=== PATIENT | female | born 1970 | race Caucasian/White ===

== ENCOUNTER 2023-10-08 09:20 | Outpatient (REF) | payer MEDICAID, SELFPAY ==
[2023-10-08 12:01] LABS: Creatinine Urine 151.93 mg/dL
[2023-10-08 12:53] LABS: Alanine Aminotransferase 61 U/L (0-31); Albumin Level 4.1 g/dL (3.5-5.0); Alkaline Phosphatase 38 U/L (39-117); Anion Gap 14 (12-20); Aspartate Amino Transferase 53 U/L (5-31); Bilirubin Total 0.4 mg/dL (0.0-1.0); Blood Urea Nitrogen 13 mg/dL (9-16); Calcium 10.1 mg/dL (8.4-10.2); Carbon Dioxide 29 mmol/L (22-29); Chloride 102 mmol/L (96-108); Cholesterol 182 mg/dL (<200); Estimated Glomerular Filt Rate > 60; Glucose Random 145 mg/dL (60-115); HDL Cholesterol 34 mg/dL (>40); LDL Cholesterol Calculated 98 mg/dL (<100); Potassium 3.7 mmol/L (3.3-5.1); Sodium 141 mmol/L (135-145); Total Protein 8.2 g/dL (6.5-8.0); Triglycerides 251 mg/dL (<150)
[2023-10-08 13:12] LABS: TSH reflex Free T4 2.07 uIU/mL (0.32-4.0); Vitamin D 25-OH Total 18.1 ng/mL (>30)
[2023-10-08 15:31] LABS: Reflex LDLD? No
[2023-10-09 04:28] LABS: HBS Num1 0.61 mIU/mL (0-7.99); HBc Num1 0.21 S/CO (0.00-0.79); HBsAGNum1 0.33 S/CO (0.00-0.99); Hepatitis A Antibody IgM 0.21 Index (0-0.79); Hepatitis B Core Antibody Nonreactive (Nonreactive); Hepatitis B Surface Antigen Negative (Negative); ~Hepatitis A Antibody IgM Nonreactive (Nonreactive); ~Hepatitis B Surface Antibody NONREACTIVE (Nonreactive)
[2023-10-09 04:32] LABS: ~HepC Num1 0.32 S/CO (0.00-0.79); ~Hepatitis C Antibody Nonreactive (Nonreactive)
== END 2023-10-08 09:21 | disposition home or self-care (01) ==
LOC: HO.HHCL 09:20
PROVIDERS: Visit Provider Internal Medicine
DX: R42 Dizziness and giddiness (principal); E78.5 Hyperlipidemia, unspecified; E11.9 Type 2 diabetes mellitus without complications
CPT/HCPCS: 36415; 80053; 80061; 82043; 82306; 82570; 84443; 86704; 86706; 86709; 86803; 87340

== ENCOUNTER 2024-01-17 08:57 | Outpatient (REF) | payer SELFPAY ==
[2024-01-17 11:58] LABS: Alanine Aminotransferase 27 U/L (0-31); Albumin Level 4.2 g/dL (3.5-5.0); Alkaline Phosphatase 36 U/L (39-117); Aspartate Amino Transferase 24 U/L (5-31); Bilirubin Direct 0.1 mg/dL (0.0-0.5); Bilirubin Total 0.5 mg/dL (0.0-1.0); Cholesterol 123 mg/dL (<200); HDL Cholesterol 31 mg/dL (>40); LDL Cholesterol Calculated 65 mg/dL (<100); Total Protein 8.2 g/dL (6.5-8.0); Triglycerides 138 mg/dL (<150)
[2024-01-17 12:12] LABS: Vitamin B12 339 pg/mL (200-900)
== END 2024-01-17 08:58 | disposition home or self-care (01) ==
LOC: HO.HHCL 08:57
PROVIDERS: Visit Provider Internal Medicine Geriatric Medicine
DX: E11.9 Type 2 diabetes mellitus without complications (principal); E78.5 Hyperlipidemia, unspecified; R74.01 Elevation of levels of liver transaminase levels
CPT/HCPCS: 36415; 80061; 80076; 82607

== ENCOUNTER 2024-03-06 13:38 | Outpatient (REF) | payer MEDICAID, SELFPAY ==
--- NOTE | ~2024-03-06 | US_ITS ---
EXAMINATION: MM DIAGNOSTIC DIGITAL BREAST TOMOSYNTHESIS, BILATERAL US BREAST LIMITED, RIGHT MAMMOGRAPHY: CLINICAL INFORMATION: 53-year-old female complaining of right breast pain/palpable focus approximate 11:00 axis, anterior one third. As per technologist note, history of breast cancer in sister at age 48. COMPARISON: Bilateral Mammography and right breast ultrasound 10/02/2021 from [facility]. TECHNIQUE: Digital breast tomosynthesis is performed in both the craniocaudal and mediolateral oblique views along with computer-aided detection (CAD). Synthesized 2D images are generated from the tomosynthesis. In addition to standard views, full-field 3-D right mediolateral view was obtained, as well as spot compression 3-D right MLO and CC views. FINDINGS: There are scattered areas of fibroglandular density (ACR BI-RADS breast composition Category b). There are no suspicious masses, suspicious grouped calcifications, or areas of architectural distortion in either breast. The parenchymal pattern is stable from prior exams. There is no skin or axillary abnormality. There is no mammographic abnormality in the upper outer quadrant, in the region of interest marked by the technologist with the aid of the patient. ULTRASOUND: CLINICAL INFORMATION: As above. COMPARISON: 10/02/2021. TECHNIQUE: Targeted sonographic evaluation right breast was performed using a high frequency linear transducer. Attention was given to the right breast spanning 10:00 to 2:00, including the area of concern. Selected archived documentation. FINDINGS: RIGHT BREAST: There is a mixture of fatty and fibroglandular tissue. No suspicious mass is seen. There is no pathologic acoustic shadowing. There is no cystic abnormality. There is no ultrasound abnormality in the right breast upper outer quadrant in the region of interest. US/US breast RT limited mamm only IMPRESSION: There are no findings suspicious for malignancy in either breast. There is no mammographic or sonographic correlate to the focus of palpable concern/pain in the upper outer right breast, anterior one third. Recommend clinical management and follow-up. Otherwise, recommend the patient resume routine annual screening mammography. OVERALL ASSESSMENT: Mammography: BI-RADS 1 - Negative Ultrasound: BI-RADS 1 - Negative RECOMMENDATION: 1. Patient should be managed based on the clinical impression. 2. Otherwise, routine annual screening mammography. This patient's information was entered into a reminder system with a target due date for their next mammogram.
== END 2024-03-06 13:39 | disposition home or self-care (01) ==
LOC: HO.MAMMO 13:38
PROVIDERS: PCP Internal Medicine Geriatric Medicine; Visit Provider Internal Medicine Geriatric Medicine
DX: N64.4 Mastodynia (principal); N63.11 Unspecified lump in the right breast, upper outer quadrant
CPT/HCPCS: 76642; 77062; 77066

== ENCOUNTER → 2024-03-06 14:00 | Outpatient (BNV) | payer MEDICAID, SELFPAY | PROVIDERS: PCP Internal Medicine Geriatric Medicine; Visit Provider Radiology Diagnostic Radiology | DX: N64.4 Mastodynia (principal) | CPT/HCPCS: 76642; 77062; 77066 ==

== ENCOUNTER 2024-04-20 18:04 | Emergency (ER) | payer MEDICAID, SELFPAY ==
--- NOTE | ~2024-04-20 | XR_ITS ---
EXAMINATION: XR SHOULDER, RIGHT CLINICAL INFORMATION: Limited range of motion with right shoulder pain COMPARISON: None available. TECHNIQUE: AP external rotation, Grashey, scapular Y, and axillary views of the right shoulder. FINDINGS: Mild loss of right AC joint and glenohumeral joint space without acute fracture or dislocation . The soft tissues are normal. XR/XR shoulder RT min 2V IMPRESSION: Moderate degenerative changes right shoulder joint. No visible acute fracture or dislocation seen. Electronically signed by: Wiliam Oliver MD 04/20/2024 07:40 PM EDT
[2024-04-20 18:10] VITALS: BP 138/70; PULSE 82; RESP 16; TEMP 36.3; O2SAT 99; BMI 34.8
--- NOTE | 2024-04-20 18:11 | ED.UPPEXIN ---
HPI - Extremity Injury (Upper) General Chief Complaint: Extremity Injury, Upper Stated Complaint: right shoulder pain, no inj Time Seen by Provider: 04/20/24 19:36 Source: patient Mode of arrival: ambulatory Limitations: no limitations History of Present Illness ED Provider: Dr. Emili Morillo HPI narrative: Patient comes to the emergency room complaining of 1 day of right suprascapular pain. Patient denies any falls, any new exercise. Patient states she woke up with the pain. Patient denies chest pain or shortness of breath. Denies numbness or tingling in the lower extremity. Patient states that when she shrugs her shoulders, the muscles in her right upper back hurt Related Data Previous Rx's ?Medication ?Instructions ?Recorded cyclobenzaprine 10 mg tablet 10 mg PO TID PRN muscle spasm #7 04/20/24 tabs ketorolac 10 mg tablet 10 mg PO .B.i.d. PRN pain #6 tabs 04/20/24 Allergies Allergy/AdvReac Type Severity Reaction Status Date / Time No Known Allergies Allergy Verified 04/20/24 18:11 Review of Systems Review of Systems: Constitutional : No Weight loss, No Fever, No Chills, No Night Sweats, No Fatigue, No Malaise ENT/Mouth : No Hearing loss, No Ear Pain, No Nasal Congestion, No Sinus Pain, No Hoarseness, No sore throat, No Rhinorrhea, No Swallowing Difficulty Eyes: No Eye Pain, No Swelling, No Redness, No Foreign Body, No Discharge, No Vision Changes Cardiovascular : No Chest Pain, No SOB, No Dyspnea on Exertion, No Orthopnea, No Edema, No Palpitations Respiratory : No Cough, No Sputum, No Wheezing, No Smoke Exposure, No Dyspnea Gastrointestinal : No Nausea, No Vomiting, No Diarrhea, No Constipation, No abdominal Pain, No Hematochezia, No Melena Genitourinary : no irregular bleeding, No Dysuria, No Urinary Frequency, No Hematuria, No Urinary Incontinence, No Urgency, No Flank Pain, No Urinary Flow Changes, No Hesitancy Musculoskeletal : Complaining of right shoulder pain without any trauma,, No Myalgias, No Joint Swelling Skin : No Skin Lesions, No rash Neuro : No Weakness, No Numbness, No Paresthesias, No Loss of Consciousness, No Dizziness, No Headache Psych : No Anxiety/Panic, No Depression, No SI/HI/AH/VH, No Social Issues, Heme/Lymph: No Bruising, No Bleeding,No Lymphadenopathy Endocrine : No Polyuria, No Polydipsia, No Temperature Intolerance [facility] Social History Social History Advance Directives: No Advance Directives Information Provided: No Do you have a plan to hurt others: No Plan Physical Exam Vital Signs: Vital Signs: Last Vital Signs Temp 97.4 F 04/20/24 18:10 Pulse 82 04/20/24 18:10 Resp 16 04/20/24 18:10 BP 138/70 04/20/24 18:10 Pulse Ox 99 04/20/24 18:10 O2 Del Method Room Air 04/20/24 18:10 BMI result Body Mass Index 34.8 Const: Other: Appearance: Alert. Oriented X3. No acute distress. Eyes: Pupils equal, round and reactive to light. ENT: Pharynx normal. Neck: Normal inspection. Neck supple. No lymph nodes noted. No crepitus CVS: Normal heart rate and rhythm. Pulses normal. Normal S1 and S2 Respiratory: No respiratory distress. Breath sounds normal. No Wheezing. No rales Abdomen: Soft and nontender. No rigidity. No distention. Skin: Skin warm and dry. Normal skin color. Normal skin turgor. Extremities: No lower extremity edema. No Lacerations. No Rash. Pain to palpation over the suprascapular muscles on the right side and right sternocleidomastoid muscle. No pain to palpation over the actual shoulder. Neuro: Oriented X 3. No motor deficit. No sensory deficit. Moving all extremities. No slurred speech. CN 2 through 12 grossly intact Psych: calm, cooperative, normal affect Course Course Course Narrative: This is a Rapid Medical Examination (RME) performed by Lesley Fields PA-C in triage. Full HPI, ROS, assessment and treatment plan per primary provider in the Main ED. [id number] female presents the ER for evaluation of right shoulder pain that started yesterday when she woke up. No injuries. Significantly limited range of motion due to pain. No chest pain. Pain extends from the neck, through the shoulder and down to the elbow. No numbness, tingling in the arm or hand. Plan: X-ray of the shoulder Medical Decision Making Medical Decision Making [facility] Narrative: My interpretation of x-ray of the shoulder: No obvious abnormality, normal alignment, no dislocation or fracture -patient was given IM ketorolac and p.o. cyclobenzaprine Independent Interpretation I performed an independent interpretation of an: Plain X-Ray Radiology Impression Discussion of test interpretation with radiology: I have reviewed the radiologist's reading. Radiologist Impression: Mild loss of right AC joint and glenohumeral joint space without acute fracture or dislocation . The soft tissues are normal. XR/XR shoulder RT min 2V IMPRESSION: Moderate degenerative changes right shoulder joint. No visible acute fracture or dislocation seen. Discharge Plan Discharge Clinical Impression: Musculoskeletal pain Patient Disposition: Home, Self-Care Instructions: Musculoskeletal Pain (ED) Additional Instructions: Please follow-up with your primary care physician tomorrow. If you have any worsening or new symptoms, please return to the emergency room or call 911 Prescriptions: New ketorolac 10 mg tablet 10 mg PO .B.i.d. PRN (Reason: pain) Qty: 6 0RF Rx Instructions: maximum total duration of 5 days from all oral, intranasal, or parenteral formulations cyclobenzaprine 10 mg tablet 10 mg PO TID PRN (Reason: muscle spasm) Qty: 7 0RF Print Language: Bulgarian
[2024-04-20] MEDS: Cyclobenzaprine HCl 10 MG TABLET PO (20:00)
[2024-04-20] MEDS: Ketorolac Tromethamine 60 MG/2 ML VIAL IM (20:00)
[2024-04-20 20:02] VITALS: BP 138/70; PULSE 82; RESP 16; TEMP 36.3; O2SAT 99
== END 2024-04-20 20:02 | disposition home or self-care (01) ==
PROVIDERS: Emergency Provider Emergency Medicine; PCP Internal Medicine Geriatric Medicine
DX: M79.18 Myalgia, other site (principal); M25.511 Pain in right shoulder
CPT/HCPCS: 73030; 96372; 99283; 99284; J1885

== ENCOUNTER 2024-05-09 17:57 | Inpatient (IN) | payer MEDICAID, SELFPAY ==
--- NOTE | ~2024-05-09 | CT_ITS ---
EXAMINATION: CT ABDOMEN AND PELVIS WITHOUT CONTRAST CLINICAL INFORMATION: Flank pain. Urinary tract infection. COMPARISON: None available. TECHNIQUE: Multidetector volumetric imaging was performed from the lung bases to the pubic without contrast. Sagittal and coronal reformatted images were obtained on the technologist workstation. This CT examination was performed using dose optimization techniques as appropriate, variously including the following: *Automated exposure control. *Adjustment of mA and/or kV according to patient size (this includes techniques or standardized protocols for targeted exams where dose is matched to indication/reason for exam; i.e. extremities or head). *Use of iterative reconstruction technique. DLP: 707 mGy-cm FINDINGS: LUNG BASES: No abnormalities of the visualized lung bases. No demonstrated abnormalities of the visualized cardiac structures. ABDOMEN/PELVIS: Liver, Biliary Ducts, and Gallbladder: The unenhanced liver is somewhat enlarged (23 cm in craniocaudal dimension) although this appears in the presence of a Emily lobe. Diffuse low parenchymal attenuation (32 Hounsfield units). No demonstrated focal hepatic lesions or biliary ductal dilatation. The gallbladder is physiologically distended without radiopaque gallstones, pericholecystic fluid, or significant gallbladder wall thickening. Pancreas: Few small calcifications within the pancreatic tail. Otherwise, the Pancreas is normal in appearance. Adrenal Glands: The adrenal glands are normal in appearance. Spleen: The spleen is mildly enlarged, measuring 12.7 cm in long axis. No additional demonstrated abnormalities of the spleen. Kidneys and Ureters: The unenhanced kidneys are normal in size. Moderate left-sided hydronephrosis and hydroureter. There is a 0.5 cm stone in the distal left ureter (942 Hounsfield units). No additional nephrolithiasis. No right-sided hydronephrosis, ureterolithiasis, or hydroureter. Moderate left-sided perinephric fat stranding. Urinary Bladder: The urinary bladder is partially distended without focal wall thickening. No bladder calculi are demonstrated. Gastrointestinal System: The stomach is decompressed and therefore not well evaluated on this exam. The small bowel is of normal caliber. The colon is normal in appearance without focal wall thickening or pericolonic inflammatory change. Normal appendix. Genitourinary: No demonstrated soft tissue adnexal masses. Intra-abdominal and Retroperitoneal Spaces: No intra-abdominal free fluid collections or gas. No mesenteric, retroperitoneal, or inguinal lymphadenopathy. VASCULATURE: The abdominal aorta is of normal contour and caliber with moderate calcific atherosclerotic disease. MUSCULOSKELETAL: Prior infraumbilical anterior abdominal wall surgery. Multifocal midline hernia along the incision site including nonobstructed loops of small bowel. Moderate multilevel degenerative changes of the spine. Moderate degenerative arthropathy of the bilateral hips. No lytic or sclerotic osseous lesions demonstrated. No soft tissue masses demonstrated. CT/CT abdomen pelvis wo IV con IMPRESSION: 1. There is a 0.5 cm stone in the distal left ureter. Moderate left-sided hydronephrosis and hydroureter. 2. Mild hepatosplenomegaly. Hepatic steatosis. 3. Prior infraumbilical anterior abdominal wall surgery. Multifocal midline hernia along the incision site including nonobstructed loops of small bowel. Electronically signed by: Brian Moreno DO 05/10/2024 12:57 AM EDT
[2024-05-09 18:46] VITALS: BP 122/59; PULSE 91; RESP 18; TEMP 37; O2SAT 99; BMI 32.6
[2024-05-09 19:17] LABS: MANUAL DIFF FLAG NO
[2024-05-09 19:28] LABS: Basophils Percent Auto 0.3 % (0-2); Eosinophils Absolute Auto 0.1 X10*3/uL (0.0-0.4); Hematocrit 44.1 % (37.0-47.0); Hemoglobin 14.9 g/dl (12.0-16.0); Imm Gran Abs Auto 0.03 X10*3/uL (0.00-0.03); Imm Gran Pct Auto 0.3 % (0.0-0.4); Lymphocytes Absolute Auto 2.5 X10*3/uL (1.2-4.9); Lymphocytes Percent Auto 21.8 % (20-40); Mean Corpuscular HGB Conc 33.8 g/dl (31.0-35.0); Mean Corpuscular Hemoglobin 30.6 pg (27.0-33.0); Mean Corpuscular Volume 90.6 fL (80.0-98.0); Mean Platelet Volume 8.8 fL (9.4-12.3); Monocytes Absolute Auto 0.5 X10*3/uL (0.1-1.2); Monocytes Percent Auto 4.6 % (2-11); Neutrophils Absolute Auto 8.2 x10*3/uL (2.0-8.3); Platelet Count 296 X10*3/uL (160-400); Red Blood Count 4.87 X10*6/uL (4.20-5.50); Red Cell Distribution Width 12.9 % (11.0-16.0); White Blood Count 11.5 X10*3/uL (4.8-10.8)
[2024-05-09 19:31] LABS: Appearance Urine Clear; Color Urine Yellow; Glucose Urine UA >=1000 mg/dL (Negative); Leukocyte Esterase Urine Trace (Negative); Nitrite Urine Negative (Negative); Specific Gravity - Urine 1.025 (1.005-1.025); UMIC TRIGGER UACC YES; Urine Blood Moderate (2+) (Negative); Urine Ketones Trace mg/dL (Negative); Urine Protein Negative (Neg-Trace)
[2024-05-09 19:32] LABS: UPreg QC Valid YES; Urine Pregnancy NEGATIVE (NEGATIVE)
[2024-05-09 19:36] LABS: Bacteria Urine 1+ (None Seen); Hyaline Casts Urine 0-2 /LPF (0-2); UACC Culture Trigger YES
[2024-05-09 19:41] LABS: Alanine Aminotransferase 21 U/L (0-31); Albumin Level 4.4 g/dL (3.5-5.0); Alkaline Phosphatase 35 U/L (39-117); Anion Gap 15 (12-20); Aspartate Amino Transferase 19 U/L (5-31); Bilirubin Total 0.3 mg/dL (0.0-1.0); Blood Urea Nitrogen 16 mg/dL (9-16); Calcium 10.5 mg/dL (8.4-10.2); Carbon Dioxide 27 mmol/L (22-29); Chloride 103 mmol/L (96-108); Creatinine Clr Calc Pharmacy 87.6; Estimated Glomerular Filt Rate > 60; Glucose Random 111 mg/dL (60-115); Potassium 4.1 mmol/L (3.3-5.1); Sodium 141 mmol/L (135-145); Total Protein 8.3 g/dL (6.5-8.0)
--- NOTE | 2024-05-09 20:41 | ED_ITS ---
HPI - General Adult General Chief complaint: Abdominal Pain Stated complaint: flank pain/vomiting Time Seen by Provider: 05/10/24 00:16 Source: patient Mode of arrival: ambulatory Limitations: no limitations History of Present Illness ED Provider: jason RANGEL narrative: Patient with family history of kidney stone but patient never had kidney stone comes with sudden started earlier today with nausea vomiting pain is radiating from left flank to the left abdominal no hematuria no dysuria no fever no chills Related Data Home Medications ?Medication ?Instructions ?Recorded ?Confirmed atorvastatin 20 mg tablet 20 mg PO DAILY 05/10/24 05/10/24 cholecalciferol (vitamin D3) 50 50 mcg PO QAM 05/10/24 05/10/24 mcg (2,000 unit) capsule (Vitamin D3) dapagliflozin propaned 5 2 tab PO DAILY 05/10/24 05/10/24 mg-metformin ER 1,000 mg tablet, ext rel 24hr (Xigduo XR) dulaglutide 0.75 mg/0.5 mL 0.75 mg subcut ORO 05/10/24 05/10/24 subcutaneous pen injector (Trulicity) Previous Rx's ?Medication ?Instructions ?Recorded cyclobenzaprine 10 mg tablet 10 mg PO TID PRN muscle spasm #7 04/20/24 tabs ibuprofen 600 mg tablet 600 mg PO Q6H PRN fever or pain 05/10/24 #30 tabs Allergies Allergy/AdvReac Type Severity Reaction Status Date / Time No Known Allergies Allergy Verified 05/09/24 18:48 Review of Systems 2 Review of Systems: Yes all other systems are reviewed and are negative [facility] Past Medical History Medical History (Updated 05/10/24 @ 09:17 by Eryn Montano PA-C) YESSICA on CPAP Type 2 diabetes mellitus without complications HLD (hyperlipidemia) Surgical History (Updated 05/10/24 @ 08:44 by Eryn Montano PA-C) Previous section Social History Social History (Updated 05/10/24 @ 08:45 by Eryn Montano PA-C) Household Members: Children Household Members Other:: daughter in her 30s Alcohol intake: never Patient Tobacco Use Status: Never used Tobacco Use of substances other than those prescribed or required for medical reasons: No Are you DNR?: No Advance Directives: No Advance Directives Information Provided: No Do you have a plan to hurt others: No Plan Nutrition Risks: No Nutritional Risk Patient : No Physical Exam ED Vital Signs: Vital Signs - 24 hr 05/09/24 18:46 05/09/24 22:01 05/10/24 00:49 Temperature 98.6 F 98.0 F 98.2 F Pulse Rate 91 85 124 H Respiratory Rate 18 16 18 Blood Pressure 122/59 L 131/68 132/63 Pulse Oximetry 99 97 94 Oxygen Delivery Method Room Air Room Air 05/10/24 03:27 05/10/24 05:35 05/10/24 05:44 Temperature 99.4 F 98.6 F Pulse Rate 119 H 108 H 106 H Respiratory Rate 16 16 16 Blood Pressure 100/49 L 83/44 L 90/48 L Pulse Oximetry 94 94 94 Oxygen Delivery Method Room Air Room Air Room Air 05/10/24 06:14 05/10/24 06:29 05/10/24 06:39 Temperature Pulse Rate 107 H 108 H 109 H Respiratory Rate 18 20 18 Blood Pressure 93/53 L 91/60 99/56 L Pulse Oximetry 93 93 93 Oxygen Delivery Method Room Air Room Air Room Air 05/10/24 07:19 05/10/24 08:00 Temperature 98.4 F 98.0 F Pulse Rate 116 H 124 H Respiratory Rate 20 20 Blood Pressure 96/57 L 116/65 Pulse Oximetry 93 93 Oxygen Delivery Method Room Air Room Air BMI result Body Mass Index 32.6 Appearance: Alert. Oriented X3. In moderate distress Eyes: No pallor or icterus ENT: Pharynx normal. Oral Mucosa moist Neck: Normal inspection. Neck supple. CVS: Normal heart rate and rhythm. Pulses normal. Respiratory: No respiratory distress. Equal air entry bilateral, no wheezing/rales/rhonchi Abdomen: Soft and nontender. Bowel sounds are present, no mass palpable, less CVA tenderness + Skin: Skin warm and dry. Normal skin color. Normal skin turgor. Extremities: No lower extremity edema. No calf tenderness Neuro: Oriented X 3. No motor deficit. Course Course Course Narrative: RME: 53-year-old female presents ED for left flank left lower quadrant pain. Patient states states symptoms according for 12 hours. Positive for left flank CVA. Labs CT scan ordered. Medications Administered Generic Name Dose Route Start Last Admin Trade Name Freq PRN Reason Stop Dose Admin Enoxaparin Sodium 40 mg 05/10/24 09:30 05/10/24 09:56 Enoxaparin Sodium 40 Mg/0.4 Ml Syringe SUBCUT 40 mg Q24H CANDY Administration Lactated Ringer's 1,000 mls @ 150 mls/hr 05/10/24 12:00 05/10/24 12:00 Lr IVCONT 150 mls/hr .Q6H40M CANDY Administration Insulin Human Lispro 0 unit 05/10/24 11:30 05/10/24 11:39 Insulin Lispro 100 Unit/Ml 3 Ml Vial SUBCUT 2 unit QIDACHS CANDY Administration Protocol Ketorolac Tromethamine 30 mg 05/10/24 09:21 05/10/24 11:39 Ketorolac Tromethamine 30 Mg/Ml Vial IVPUSH 05/15/24 09:20 30 mg Q6H PRN Administration Pain, Moderate(Pain Scale 4-6) Morphine Sulfate 4 mg 05/10/24 09:21 05/10/24 09:57 Morphine Sulfate 4 Mg/Ml Cartridge IVPUSH 4 mg Q4H PRN Administration Pain, Severe (Pain Scale 7-10) Protocol Vitamin D 50 mcg 05/10/24 09:45 05/10/24 09:56 Cholecalciferol (Vitamin D3) 25 Mcg Tablet PO 50 mcg DAILY CANDY Administration Discontinued Medications Generic Name Dose Route Start Last Admin Trade Name Freq PRN Reason Stop Dose Admin Dexamethasone Sodium Phosphate 10 mg 05/10/24 02:05 05/10/24 02:52 Dexamethasone Sod Phosphate 10 Mg/Ml Vial IVPUSH 05/10/24 02:06 10 mg ONCE ONE Administration Hydromorphone HCl 2 mg 05/10/24 02:04 05/10/24 02:51 Hydromorphone Hcl 2 Mg/Ml Vial IVPUSH 05/10/24 02:05 2 mg ONCE ONE Administration Protocol Sodium Chloride 1,000 mls @ 999 mls/hr 05/10/24 00:17 05/10/24 01:39 Ns IV 05/10/24 01:17 Infused .Q1H1M ONE Infusion Sodium Chloride 1,000 mls @ 999 mls/hr 05/10/24 02:04 05/10/24 03:53 Ns IV 05/10/24 03:04 Infused .Q1H1M ONE Infusion Sodium Chloride 1,000 mls @ 999 mls/hr 05/10/24 05:38 05/10/24 06:48 Ns IVCONT 05/10/24 06:38 Infused .Q1H1M ONE Infusion Sodium Chloride 1,000 mls @ 999 mls/hr 05/10/24 06:36 05/10/24 08:48 Ns IVCONT 05/10/24 07:36 Infused .Q1H1M ONE Infusion Ceftriaxone Sodium 1 gm/ 50 mls @ 100 mls/hr 05/10/24 06:45 05/10/24 08:00 Sodium Chloride IV 05/10/24 07:14 Infused ONCE ONE Infusion Ketorolac Tromethamine 30 mg 05/10/24 00:17 05/10/24 00:31 Ketorolac Tromethamine 30 Mg/Ml Vial IVPUSH 05/10/24 00:18 30 mg ONCE ONE Administration Morphine Sulfate 4 mg 05/10/24 00:17 05/10/24 00:32 Morphine Sulfate 4 Mg/Ml Cartridge IVPUSH 05/10/24 00:18 4 mg ONCE ONE Administration Protocol Ondansetron HCl 4 mg 05/10/24 00:17 05/10/24 00:32 Ondansetron Hcl 4 Mg/2 Ml Vial IVPUSH 05/10/24 00:18 4 mg ONCE ONE Administration Ondansetron HCl 4 mg 05/10/24 02:08 05/10/24 02:51 Ondansetron Hcl 4 Mg/2 Ml Vial IVPUSH 05/10/24 02:09 4 mg ONCE ONE Administration Tamsulosin HCl 0.4 mg 05/10/24 00:57 05/10/24 02:52 Tamsulosin Hcl 0.4 Mg Capsule PO 05/10/24 00:58 0.4 mg ONCE ONE Administration Medical Decision Making Medical Decision Making [facility] Narrative: Patient with left renal colic with 5 mm distal ureteric stone with hydronephrosis feeling much better after pain medication will give more IV fluids repeat pain medication if feels better will discharge patient home advised to follow with urologist I received sign-out from my colleague Dr. Harper Patient earlier today received Dilaudid and morphine. Patient's blood pressure dropped to the low 80s. Patient receiving IV fluids, currently in the high 90s systolic. Patient's low BP as mentioned above due to medication, sepsis is not suspected. Patient received IV fluids and ceftriaxone -despite pain medication, patient continues having severe left-sided flank pain -I discussed the patient with Dr. Mckee, patient being admitted. Urology, Dr. Villalobos has been made aware Differential Diagnosis Differential Diagnoses: The differential diagnosis associated with the presentation includes Admission/Observation Consideration of admission/observation: Escalation of care including admission/observation considered Consult Healthcare Provider Management of the patient was discussed with: Hospitalist and Surgical Technician Lab Data MDM Lab Attestation statement: I reviewed the patient's lab results. 05/09/24 19:12 05/09/24 19:12 Labs: Lab Results 05/09/24 Range/Units 19:12 WBC 11.5 H (4.8-10.8) X10*3/uL RBC 4.87 (4.20-5.50) X10*6/uL Hgb 14.9 (12.0-16.0) g/dl Hct 44.1 (37.0-47.0) % MCV 90.6 (80.0-98.0) fL MCH 30.6 (27.0-33.0) pg MCHC 33.8 (31.0-35.0) g/dl RDW 12.9 (11.0-16.0) % Plt Count 296 (160-400) X10*3/uL MPV 8.8 L (9.4-12.3) fL Immature Gran % (Auto) 0.3 (0.0-0.4) % Neut % (Auto) 72.0 (45-73) % Lymph % (Auto) 21.8 (20-40) % [place] % (Auto) 4.6 (2-11) % Eos % (Auto) 1.0 (0-4) % Baso % (Auto) 0.3 (0-2) % Lymph # (Auto) 2.5 (1.2-4.9) X10*3/uL [place] # (Auto) 0.5 (0.1-1.2) X10*3/uL Eos # (Auto) 0.1 (0.0-0.4) X10*3/uL Baso # (Auto) 0.0 (0.0-0.2) X10*3/uL Abs Immat Gran (auto) 0.03 (0.00-0.03) X10*3/uL Absolute Neuts (auto) 8.2 (2.0-8.3) x10*3/uL Absolute Nucleated RBC 0.000 (0.0-0.012) X10*3/uL Nucleated RBC % (auto) 0.0 (0.0-0.2) /100WBC Sodium 141 (135-145) mmol/L Potassium 4.1 (3.3-5.1) mmol/L Chloride 103 (96-108) mmol/L Carbon Dioxide 27 (22-29) mmol/L Anion Gap 15 (12-20) BUN 16 (9-16) mg/dL Creatinine 0.78 (0.5-1.4) mg/dL Estim Creat Clear Calc 87.6 Estimated GFR > 60 Random Glucose 111 (60-115) mg/dL Estimat Average Glucose 117 mg/dL Hemoglobin A1c % 5.7 (<6.0) % Calcium 10.5 H (8.4-10.2) mg/dL Total Bilirubin 0.3 (0.0-1.0) mg/dL AST 19 (5-31) U/L ALT 21 (0-31) U/L Alkaline Phosphatase 35 L (39-117) U/L Total Protein 8.3 H (6.5-8.0) g/dL Albumin 4.4 (3.5-5.0) g/dL Urine Color Yellow Urine Appearance Clear Urine pH 7.0 (5.0-9.0) Ur Specific [place] 1.025 (1.005-1.025) Urine Protein Negative (Neg-Trace) mg/dL Urine Glucose (UA) >=1000 H (Negative) mg/dL Urine Ketones Trace (Negative) mg/dL Urine Blood Moderate (2+) H (Negative) Urine Nitrite Negative (Negative) Ur Leukocyte Esterase Trace H (Negative) Urine RBC 11-20 H (0-2) /HPF Urine WBC 11-20 H (0-5) /HPF Ur Squamous Epith Cells 3-5 (0-2) /HPF Urine Bacteria 1+ (None Seen) Hyaline Casts 0-2 (0-2) /LPF Urine Test NEGATIVE (NEGATIVE) Independent Interpretation I performed an independent interpretation of an: CT Scan Interpretation: Left distal about 5 mm ureteric stone with hydro ureter Radiology Impression Discussion of test interpretation with radiology: I have reviewed the radiologist's reading. Radiologist Impression: CT/CT abdomen pelvis wo IV con IMPRESSION: 1. There is a 0.5 cm stone in the distal left ureter. Moderate left-sided hydronephrosis and hydroureter. 2. Mild hepatosplenomegaly. Hepatic steatosis. 3. Prior infraumbilical anterior abdominal wall surgery. Multifocal midline hernia along the incision site including nonobstructed loops of small bowel. Electronically signed by: Brian Moreno DO 05/10/2024 12:57 AM EDT Discharge Plan Discharge Clinical Impression: Calculus of distal left ureter, UTI (urinary tract infection) Patient Disposition: Admitted As Inpatient
[2024-05-09 22:01] VITALS: BP 131/68; PULSE 85; RESP 16; TEMP 36.7; O2SAT 97
[2024-05-10] VITALS (21 sets, daily range): BP systolic 83–132; BP diastolic 44–84; PULSE 91–124; RESP 12–20; TEMP 36.3–37.7; O2SAT 93–96; BMI 32.7
--- NOTE | 2024-05-10 | ECG_ITS ---
Test Reason : PROLONGED QT Blood Pressure : / mmHG Vent. Rate : 121 BPM Atrial Rate : 121 BPM P-R Int : 156 ms QRS Dur : 086 ms QT Int : 326 ms P-R-T Axes : 052 -01 031 degrees QTc Int : 462 ms Sinus tachycardia Otherwise normal ECG No previous ECGs available Referred By: Eryn Montano Electronically Signed By:ZACHARY ROBBINS MD
[2024-05-10] MEDS: Ketorolac Tromethamine 30 MG/ML VIAL IVPUSH ×3 (00:31→18:06)
[2024-05-10] MEDS: Morphine Sulfate 4 MG/ML CARTRIDGE IVPUSH ×3 (00:32→23:39)
[2024-05-10] MEDS: ondansetron HCL 4 MG/2 ML VIAL IVPUSH ×2 (00:32→02:51)
[2024-05-10] MEDS: 0.9 % Sodium Chloride 1,000 ML 999 ML IV ×2 (00:38→02:52)
[2024-05-10] MEDS: HYDROmorphone HCl 2 MG/ML VIAL IVPUSH (02:51)
[2024-05-10] MEDS: dexAMETHasone sod phosphate 10 MG/ML VIAL IVPUSH (02:52)
[2024-05-10] MEDS: Tamsulosin HCL 0.4 MG CAPSULE PO (02:52)
--- NOTE | 2024-05-10 03:09 | PC.NURSE ---
PT medicated as per sep. Call reina within reach. plan of care ongoing
[2024-05-10] MEDS: 0.9 % Sodium Chloride 1,000 ML 999 ML IVCONT ×2 (05:47→07:30)
--- NOTE | 2024-05-10 05:48 | MHC.EDTECH ---
Hourly rounds and vitals completed,BP is low 83/44,RN and Ilia DORMAN made aware,patient placed in trendelenburg position per provider ,BP is 90/48 at this time,RN at bedside call reina in reach
--- NOTE | 2024-05-10 06:25 | PC.NURSE ---
Notified PT of pts low bp, elevated white count and tachy HR. Though pt meets sepsis criteria, Dr Morillo declined to initiate protocol as she believes low bp is d/t pain medications. PT currently in trendelenburg
[2024-05-10] MEDS: cefTRIAXone sodium 1 GM in 0.9 % Sodium Chloride 50 ML IV (07:30)
--- NOTE | 2024-05-10 07:37 | PC.NURSE ---
this RN resumed care of pt at 0645. a&ox4. vital signs stable aside from being hypotensive and sinus tachy on the cardiac catheterization technician. pt denies chest pain/palpitations. pt verbalizing 7/10 pain in LLQ radiating to left flank. denies nausea/has had no episodes of vomiting since resuming care from previous RN. blood cultures obtained/sent to lab. IVF/abx administered per provider order. pt pending admission at this time. no sob/wob noted. respirations even/unlabored. plan of care ongoing. call reina placed within reach.
--- NOTE | 2024-05-10 07:45 | PC.NURSE ---
pt speaking w/ dr. singleton at this time.
--- NOTE | 2024-05-10 08:26 | PHA.MEDREC ---
Pharmacy Consult ? Medication Reconciliation Pharmacy has completed the medication reconciliation. Spoke with patient. She confirmed she take Trulicity on Wednesday, and last took her home medications yesterday.
--- NOTE | 2024-05-10 08:45 | PM.IMHP ---
History of Present Illness Date of Service: 05/10/24 Attending physician on admission: [facility] Chief Complaint: L flank pain, ureteral stone 53 yo f with a pmhx of T2DM, HLD, and YESSICA on CPAP, presented to the ED last night with nausea vomiting and left flank/LLQ pain x12 hours. 8/10 constant pain with intermittent sharp pains. chills, no fever. no urinary frequncy, urgency, or dysuria. no diarrhea or constipation. no hx of similar sx. Review of Systems Constitutional: Constitutional: Reports chills, Denies fatigue, Denies fever(s) and Denies headache(s) Eyes: Eyes: Denies change in vision and Denies itchy eyes ENT: Denies headache(s), Denies nasal congestion and Denies nasal discharge Cardiovascular: Cardiovascular: Denies chest pain, Denies rapid heart rate and Denies dyspnea Respiratory: Respiratory: Denies cough and Denies dyspnea Gastrointestinal: Gastrointestinal: Denies hematochezia, Denies constipation, Denies diarrhea, Reports nausea and Reports vomiting Genitourinary: Genitourinary: Denies hematuria, Denies dysuria, Reports flank pain and Denies urinary urgency Musculoskeletal: Musculoskeletal: Denies myalgias and Denies arthralgias Integumentary/Breasts: Skin/Breast: Denies rash Neurologic: Denies headache(s) Endocrine: Endocrine: Denies fatigue Hematologic/Lymphatic: Hematologic/Lymphatic: Denies easy bleeding and Denies easy bruising Allergic/Immunologic: Allergic/Immunologic: Denies itchy eyes [facility] Medical History (Updated 05/10/24 @ 09:17 by Eryn Montano PA-C) YESSICA on CPAP Type 2 diabetes mellitus without complications HLD (hyperlipidemia) Functional capacity: independent ambulation Patient : No Surgical History (Updated 05/10/24 @ 08:44 by Eryn Montano PA-C) Previous section Social History (Updated 05/10/24 @ 08:45 by Eryn Montano PA-C) Household Members: Children Household Members Other:: daughter in her 30s Alcohol intake: never Patient Tobacco Use Status: Never used Tobacco Meds Allergies Allergy/AdvReac Type Severity Reaction Status Date / Time No Known Allergies Allergy Verified 05/09/24 18:48 Home Medications ?Medication ?Instructions ?Recorded ?Confirmed ?Last Taken ?Type atorvastatin 20 mg tablet 20 mg PO DAILY 05/10/24 05/10/24 05/09/24 History cholecalciferol (vitamin D3) 50 50 mcg PO QAM 05/10/24 05/10/24 05/09/24 History mcg (2,000 unit) capsule (Vitamin D3) dapagliflozin propaned 5 2 tab PO DAILY 05/10/24 05/10/24 05/09/24 History mg-metformin ER 1,000 mg tablet, ext rel 24hr (Xigduo XR) dulaglutide 0.75 mg/0.5 mL 0.75 mg subcut ORO 05/10/24 05/10/24 05/07/24 History subcutaneous pen injector (Trulicity) Physical Exam Vital Signs and Narrative: Vital Signs: Last Vital Signs Temp 98.0 F 05/10/24 08:00 Pulse 124 H 05/10/24 08:00 Resp 20 05/10/24 08:00 BP 116/65 05/10/24 08:00 Pulse Ox 93 05/10/24 08:00 O2 Del Method Room Air 05/10/24 08:00 BMI result Body Mass Index 32.6 General: AOx3, no acute distress. 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 Resp: CTA bilaterally CVS: S1, S2, RRR GI: +BS, NT, no distention, L CVAT Skin: Warm, dry Extremities: No edema Psych: Appropriate affect Results Labs 05/09/24 19:12 05/09/24 19:12 Labs: Laboratory Results - last 24 hr 05/09/24 19:12 MCV 90.6 MCH 30.6 MCHC 33.8 RDW 12.9 Plt Count 296 MPV 8.8 L Immature Gran % (Auto) 0.3 Neut % (Auto) 72.0 Lymph % (Auto) 21.8 [place] % (Auto) 4.6 Eos % (Auto) 1.0 Baso % (Auto) 0.3 Lymph # (Auto) 2.5 [place] # (Auto) 0.5 Eos # (Auto) 0.1 Baso # (Auto) 0.0 Abs Immat Gran (auto) 0.03 Absolute Neuts (auto) 8.2 Absolute Nucleated RBC 0.000 Nucleated RBC % (auto) 0.0 Anion Gap 15 Estim Creat Clear Calc 87.6 Estimated GFR > 60 Random Glucose 111 Calcium 10.5 H Total Bilirubin 0.3 AST 19 ALT 21 Alkaline Phosphatase 35 L Total Protein 8.3 H Albumin 4.4 Urine Color Yellow Urine Appearance Clear Urine pH 7.0 Ur Specific [place] 1.025 Urine Protein Negative Urine Glucose (UA) >=1000 H Urine Ketones Trace Urine Blood Moderate (2+) H Urine Nitrite Negative Ur Leukocyte Esterase Trace H Urine RBC 11-20 H Urine WBC 11-20 H Ur Squamous Epith Cells 3-5 Urine Bacteria 1+ Hyaline Casts 0-2 Urine Test NEGATIVE Imaging Radiologist's Impressions: Impressions Abdomen/Pelvis CT 05/09/24 20:43 IMPRESSION: 1. There is a 0.5 cm stone in the distal left ureter. Moderate left-sided hydronephrosis and hydroureter. 2. Mild hepatosplenomegaly. Hepatic steatosis. 3. Prior infraumbilical anterior abdominal wall surgery. Multifocal midline hernia along the incision site including nonobstructed loops of small bowel. Electronically signed by: Brian Moreno DO 05/10/2024 12:57 AM EDT RP Assessment and Plan (1) Calculus of distal left ureter: Status: Acute (2) Pyelonephritis: Status: Acute Plan 53 yo f with a pmhx of T2DM, HLD, and YESSICA on CPAP, presented to the ED last night with nausea vomiting and left flank/LLQ pain x12 hours. CT showed a 5mm L distal ureteral stone, moderate hydronephrosis and hydroureter. WBC elevated, urine +. elevated WBC - likely pyleonephritis, no sepsis, drop in vitals due to meds - BP has normalized since holding pain meds - blood cx's pending pyelonephritis - urine cx pending - continue ceftriaxone - monitor CBC L ureteral stone, hydronephrosis, hydroureter - 5mm, will likely pass spontaneously without requiring intervention - ketorolac and morphine for pain - zofran PRN for nausea - will check EKG for QTc - continue flomax - urology consult pending - NPO T2DM - SSI - hold metformin and trulicity HLD - continue atorvastatin YESSICA - CPAP at night full code VTE prohpy: pneumoboots and lovenox Pt with L distal ureteral stone, hydronephrosis and hydroureter complicated by pyelonephritis requiring admission with IV antibiotics for at least 2 midnights stay, therefore, pt will be admitted. Quality Stroke Does the patient have a stroke diagnosis?: No VTE Prior VTE?: No VTE Risk Level:: Medical - moderate - high VTE Device Contraindication: N/A - Device Ordered VTE Drug Contraindication: N/A - Med Ordered
[2024-05-10] MEDS: Cholecalciferol (Vitamin D3) 25 MCG TABLET 50 MCG PO (09:56)
[2024-05-10] MEDS: Enoxaparin Sodium 40 MG/0.4 ML SYRINGE SUBCUT (09:56)
--- NOTE | 2024-05-10 09:59 | PC.NURSE ---
pt verbalizing increase in LLQ/left flank pain - prn medication utilized. effectiveness pending. ekg performed by tech.
[2024-05-10 10:03] LABS: Estimated Average Glucose 117 mg/dL; Hemoglobin A1c % 5.7 % (<6.0); Total Hemoglobin (HGBA1C) 3741.5576 umol/L
[2024-05-10 11:38] LABS: Glucose, Whole Blood 170 mg/dL (60-115)
[2024-05-10] MEDS: Insulin Lispro 100 UNIT/ML 3 ML VIAL SUBCUT ×3 (11:39→20:52)
--- NOTE | 2024-05-10 11:48 | PC.NURSE ---
Assumed care of this patient at 1100, patient continues to complain of pain. HR noted to be elevated, BPs soft, O2 sat low 90's, provider Eryn Montano made aware, awaiting orders.
[2024-05-10] MEDS: Lactated Ringers 1,000 ML 150 ML IVCONT ×2 (12:00→18:08)
--- NOTE | 2024-05-10 12:50 | PM.UROCN ---
History of Present Illness Consult details Consult date: 05/10/24 Narrative: CC: Left lower quadrant pain 53-year-old female Presents to hospital after 24 hour history of sudden onset left flank pain radiating to left groin No relieving or aggravating factors Did respond to IV pain medications Associated nausea and vomiting Denies fever, chills, hematuria No prior history of stone formation WBC 11.5, creatinine 0.8, calcium 10.5 Imaging - Moderate left-sided hydronephrosis and hydroureter. There is a 0.5 cm stone in the distal left ureter (942 Hounsfield units). Discussed intervention with left retrograde and ureteroscopy with laser lithotripsy Review of Systems Constitutional: Constitutional: Reports as per HPI and Reports no additional constitutional complaints Cardiovascular: Cardiovascular: Reports as per HPI and Reports no additional cardiovascular complaints Respiratory: Respiratory: Reports as per HPI and Reports no additional respiratory complaints Gastrointestinal: Gastrointestinal: Reports as per HPI and Reports no additional gastrointestinal complaints Genitourinary: Genitourinary: Reports as per HPI Musculoskeletal: Musculoskeletal: Reports no additional musculoskeletal complaints and Reports as per HPI Neurologic: Reports system reviewed and no additional complaints, except as documented and Reports as per HPI [facility] Past Medical History Medical History (Updated 05/10/24 @ 09:17 by Eryn Montano PA-C) YESSICA on CPAP Type 2 diabetes mellitus without complications HLD (hyperlipidemia) Surgical History Surgical History (Updated 05/10/24 @ 08:44 by Eryn Montano PA-C) Previous section Social History Social History (Updated 05/10/24 @ 08:45 by Eryn Montano PA-C) Household Members: Children Household Members Other:: daughter in her 30s Alcohol intake: never Patient Tobacco Use Status: Never used Tobacco Use of substances other than those prescribed or required for medical reasons: No Are you DNR?: No Advance Directives: No Advance Directives Information Provided: No Do you have a plan to hurt others: No Plan Nutrition Risks: No Nutritional Risk Patient : No Meds Allergies Allergy/AdvReac Type Severity Reaction Status Date / Time No Known Allergies Allergy Verified 05/09/24 18:48 Active Medications: Current Medications Acetaminophen (Acetaminophen 325 Mg Tablet) 650 mg PO Q6H PRN PRN Reason: Pain, Mild (Pain Scale 1-3), fever or headache Atorvastatin Calcium (Atorvastatin Calcium 20 Mg Tablet) 20 mg PO DAILY [facility] Calcium Carbonate (Calcium Carbonate 750 Mg Tab.Chew) 750 mg PO Q4H PRN PRN Reason: Heartburn Enoxaparin Sodium (Enoxaparin Sodium 40 Mg/0.4 Ml Syringe) 40 mg SUBCUT Q24H [facility] Last Admin: 05/10/24 09:56 Dose: 40 mg Glucose (Glucose Gel 15 Gm Gel..Gram.) 15 gm PO Q15M PRN; Protocol PRN Reason: per Hypoglycemia Standing Ord. Ceftriaxone Sodium 1 gm/ (Sodium Chloride) 50 mls @ 100 mls/hr IV Q24H [facility] Dextrose (D10) 250 mls @ 750 mls/hr IV Q15M PRN; Protocol PRN Reason: per Hypoglycemia Standing Ord. Lactated Ringer's (Lr) 1,000 mls @ 150 mls/hr IVCONT .Q6H40M [facility] Last Admin: 05/10/24 12:00 Dose: 150 mls/hr Acetaminophen (Ofirmev) 1,000 mg in 100 mls @ 400 mls/hr IV PREOP ONE Stop: 05/10/24 13:00 Levofloxacin (Levaquin) 500 mg in 100 mls @ 100 mls/hr IV PREOP ONE Stop: 05/10/24 13:45 Insulin Human Lispro (Insulin Lispro 100 Unit/Ml 3 Ml Vial) 0 unit SUBCUT QIDACHS [facility]; Protocol Last Admin: 05/10/24 11:39 Dose: 2 unit Ketorolac Tromethamine (Ketorolac Tromethamine 30 Mg/Ml Vial) 30 mg IVPUSH Q6H PRN PRN Reason: Pain, Moderate(Pain Scale 4-6) Stop: 05/15/24 09:20 Last Admin: 05/10/24 11:39 Dose: 30 mg Magnesium Hydroxide (Milk Of Magnesia 30 Ml Oral.Susp) 30 ml PO DAILY PRN PRN Reason: Constipation Melatonin (Melatonin 3 Mg Tablet) 6 mg PO BEDTIME PRN PRN Reason: Insomnia Morphine Sulfate (Morphine Sulfate 4 Mg/Ml Cartridge) 4 mg IVPUSH Q4H PRN; Protocol PRN Reason: Pain, Severe (Pain Scale 7-10) Last Admin: 05/10/24 09:57 Dose: 4 mg Ondansetron HCl (Ondansetron Hcl 4 Mg/2 Ml Vial) 4 mg IVPUSH Q6H PRN PRN Reason: Nausea and Vomiting Sodium Chloride (0.9 % Sodium Chloride Flush 3 Ml Syringe) 3 ml IVFLUSH QSHIFT [facility] Vitamin D (Cholecalciferol (Vitamin D3) 25 Mcg Tablet) 50 mcg PO DAILY [facility] Last Admin: 05/10/24 09:56 Dose: 50 mcg Home Medications ?Medication ?Instructions ?Recorded ?Confirmed ?Last Taken ?Type atorvastatin 20 mg tablet 20 mg PO DAILY 05/10/24 05/10/24 05/09/24 History cholecalciferol (vitamin D3) 50 50 mcg PO QAM 05/10/24 05/10/24 05/09/24 History mcg (2,000 unit) capsule (Vitamin D3) dapagliflozin propaned 5 2 tab PO DAILY 05/10/24 05/10/24 05/09/24 History mg-metformin ER 1,000 mg tablet, ext rel 24hr (Xigduo XR) dulaglutide 0.75 mg/0.5 mL 0.75 mg subcut ORO 05/10/24 05/10/24 05/07/24 History subcutaneous pen injector (Trulicity) Physical Exam Vital Signs: Vital Signs: Last Vital Signs Temp 98.8 F 05/10/24 11:29 Pulse 117 H 05/10/24 11:29 Resp 15 05/10/24 11:29 BP 95/44 L 05/10/24 11:29 Pulse Ox 94 05/10/24 11:29 O2 Del Method Room Air 05/10/24 11:29 BMI result Body Mass Index 32.6 Const: General: cooperative, healthy appearing, comfortable and no acute distress Orientation/consciousness: patient oriented x3 HEENT: Face and sinus: Yes normal facial exam Mouth: moist mucous membranes Neck: Neck: Yes normal visual inspection, Yes full ROM and Yes trachea midline Chest: Chest palpation & inspection: normal inspection of the chest Resp: Effort & Inspection: normal respiratory effort, able to speak in complete sentences and no respiratory distress GI: Inspection: Yes normal to inspection Back/Spine/Pelvis: Cervical Spine: normal cervical lordosis Thoracic/Lumbar Spine: thoracic and lumbar spine normal to inspection Skin: General skin exam: no rashes or lesions noted Neuro: General: patient oriented x3, tone normal and moves all extremities Extrem: General: Yes normal to inspection and Yes capillary refill normal Results Labs 05/09/24 19:12 05/09/24 19:12 Labs: Abnormal lab results 05/09/24 05/10/24 Range/Units 19:12 11:34 WBC 11.5 H (4.8-10.8) X10*3/uL MPV 8.8 L (9.4-12.3) fL POC Glucose 170 H (60-115) mg/dL Calcium 10.5 H (8.4-10.2) mg/dL Alkaline Phosphatase 35 L (39-117) U/L Total Protein 8.3 H (6.5-8.0) g/dL Urine Glucose (UA) >=1000 H (Negative) mg/dL Urine Blood Moderate (2+) H (Negative) Ur Leukocyte Esterase Trace H (Negative) Urine RBC 11-20 H (0-2) /HPF Urine WBC 11-20 H (0-5) /HPF Short CBC 05/09/24 Range/Units 19:12 WBC 11.5 H (4.8-10.8) X10*3/uL Hgb 14.9 (12.0-16.0) g/dl Hct 44.1 (37.0-47.0) % Plt Count 296 (160-400) X10*3/uL BMP 05/09/24 19:12 Sodium 141 Potassium 4.1 Chloride 103 Carbon Dioxide 27 BUN 16 Creatinine 0.78 Calcium 10.5 H Liver Function 05/09/24 Range/Units 19:12 Total Bilirubin 0.3 (0.0-1.0) mg/dL AST 19 (5-31) U/L ALT 21 (0-31) U/L Alkaline Phosphatase 35 L (39-117) U/L Albumin 4.4 (3.5-5.0) g/dL Urine 05/09/24 Range/Units 19:12 Urine Color Yellow Urine Appearance Clear Urine pH 7.0 (5.0-9.0) Ur Specific [place] 1.025 (1.005-1.025) Urine Protein Negative (Neg-Trace) mg/dL Urine Glucose (UA) >=1000 H (Negative) mg/dL Urine Test NEGATIVE (NEGATIVE) All other labs normal. Assessment and Plan (1) Calculus of distal left ureter: Status: Acute Plan Ureteroscopy We discussed the nature of the decision and reasonable alternatives for performing ureteroscopy. Options such as medical therapy were discussed. Interventions include chemical dissolution, ESWL, ureteroscopy with laser lithotripsy and stent placement, PCNL. The relative uncertainties and benefits related to each alternate procedure were adequately discussed. General surgical risks including, but not limited to - pain, bleeding, infection, myocardial infarction, pulmonary embolus, deep vein thrombosis and cerebrovascular accident which may result in further hospitalization were discussed. Full disclosure of the procedure as well as all major risks, benefits and complications were discussed including but not limited to damage to the urethra, bladder and kidney infection, damage to the ureter, stent migration or malposition, scarring to the renal pelvis, remnant stone fragments, subsequent stone passage with need for secondary procedures. The overall secondary procedure rate is approximately 10-15%. The overall clearance rate is approximately 90-95%. Success of the procedure in the short-term does not necessarily guarantee that long-term success will be maintained. Suitable follow up will need to be maintained. The patient showed understanding of discussion and wishes to proceed with - cystoscopy, retrograde, ureteroscopy, possible lithotripsy/stone basketing and stent on the left side Procedures Date of Service Date of Service: 05/10/24
[2024-05-10 14:54] LABS: Hematocrit 33.9 % (37.0-47.0); Hemoglobin 11.6 g/dl (12.0-16.0); Mean Corpuscular HGB Conc 34.2 g/dl (31.0-35.0); Mean Corpuscular Hemoglobin 31.1 pg (27.0-33.0); Mean Corpuscular Volume 90.9 fL (80.0-98.0); Mean Platelet Volume 8.8 fL (9.4-12.3); Platelet Count 192 X10*3/uL (160-400); Red Blood Count 3.73 X10*6/uL (4.20-5.50); Red Cell Distribution Width 13.4 % (11.0-16.0)
[2024-05-10 15:10] LABS: Anion Gap 13 (12-20); Blood Urea Nitrogen 18 mg/dL (9-16); Calcium 8.4 mg/dL (8.4-10.2); Carbon Dioxide 23 mmol/L (22-29); Chloride 108 mmol/L (96-108); Creatinine Clr Calc Pharmacy 81.3; Estimated Glomerular Filt Rate > 60; Glucose Random 169 mg/dL (60-115); Sodium 140 mmol/L (135-145)
--- NOTE | 2024-05-10 16:00 | HO.ANESPROP2 ---
HPI - Anesthesia Eval Consult details Narrative: Left ureter stone PMFSH Active Problems Active Problems: All Active Problems Pyelonephritis (Acute) UTI (urinary tract infection) (Acute) Calculus of distal left ureter (Acute) Past Medical History Medical History (Updated 05/10/24 @ 09:17 by Eryn Montano PA-C) YESSICA on CPAP Type 2 diabetes mellitus without complications HLD (hyperlipidemia) Functional capacity: independent ambulation Family History Family history of problems with anesthesia: No Surgical History Surgical History (Updated 05/10/24 @ 08:44 by Eryn Montano PA-C) Previous section History of Problems with Anesthesia: No Social History Social History (Updated 05/10/24 @ 08:45 by Eryn Montano PA-C) Household Members: Children Household Members Other:: daughter in her 30s Alcohol intake: never Patient Tobacco Use Status: Never used Tobacco Use of substances other than those prescribed or required for medical reasons: No Are you DNR?: No Advance Directives: No Advance Directives Information Provided: No Do you have a plan to hurt others: No Plan Nutrition Risks: No Nutritional Risk Patient : No Meds Allergies Allergy/AdvReac Type Severity Reaction Status Date / Time No Known Allergies Allergy Verified 05/09/24 18:48 Active Medications: Current Medications Acetaminophen (Acetaminophen 325 Mg Tablet) 650 mg PO Q6H PRN PRN Reason: Pain, Mild (Pain Scale 1-3), fever or headache Atorvastatin Calcium (Atorvastatin Calcium 20 Mg Tablet) 20 mg PO DAILY [facility] Calcium Carbonate (Calcium Carbonate 750 Mg Tab.Chew) 750 mg PO Q4H PRN PRN Reason: Heartburn Enoxaparin Sodium (Enoxaparin Sodium 40 Mg/0.4 Ml Syringe) 40 mg SUBCUT Q24H [facility] Last Admin: 05/10/24 09:56 Dose: 40 mg Glucose (Glucose Gel 15 Gm Gel..Gram.) 15 gm PO Q15M PRN; Protocol PRN Reason: per Hypoglycemia Standing Ord. Ceftriaxone Sodium 1 gm/ (Sodium Chloride) 50 mls @ 100 mls/hr IV Q24H [facility] Dextrose (D10) 250 mls @ 750 mls/hr IV Q15M PRN; Protocol PRN Reason: per Hypoglycemia Standing Ord. Lactated Ringer's (Lr) 1,000 mls @ 150 mls/hr IVCONT .Q6H40M [facility] Last Admin: 05/10/24 12:00 Dose: 150 mls/hr Insulin Human Lispro (Insulin Lispro 100 Unit/Ml 3 Ml Vial) 0 unit SUBCUT QIDACHS [facility]; Protocol Last Admin: 05/10/24 11:39 Dose: 2 unit Ketorolac Tromethamine (Ketorolac Tromethamine 30 Mg/Ml Vial) 30 mg IVPUSH Q6H PRN PRN Reason: Pain, Moderate(Pain Scale 4-6) Stop: 05/15/24 09:20 Last Admin: 05/10/24 11:39 Dose: 30 mg Magnesium Hydroxide (Milk Of Magnesia 30 Ml Oral.Susp) 30 ml PO DAILY PRN PRN Reason: Constipation Melatonin (Melatonin 3 Mg Tablet) 6 mg PO BEDTIME PRN PRN Reason: Insomnia Morphine Sulfate (Morphine Sulfate 4 Mg/Ml Cartridge) 4 mg IVPUSH Q4H PRN; Protocol PRN Reason: Pain, Severe (Pain Scale 7-10) Last Admin: 05/10/24 09:57 Dose: 4 mg Ondansetron HCl (Ondansetron Hcl 4 Mg/2 Ml Vial) 4 mg IVPUSH Q6H PRN PRN Reason: Nausea and Vomiting Sodium Chloride (0.9 % Sodium Chloride Flush 3 Ml Syringe) 3 ml IVFLUSH [facility] Vitamin D (Cholecalciferol (Vitamin D3) 25 Mcg Tablet) 50 mcg PO DAILY [facility] Last Admin: 05/10/24 09:56 Dose: 50 mcg Home Medications ?Medication ?Instructions ?Recorded ?Confirmed ?Last Taken ?Type atorvastatin 20 mg tablet 20 mg PO DAILY 05/10/24 05/10/24 05/09/24 History cholecalciferol (vitamin D3) 50 50 mcg PO QAM 05/10/24 05/10/24 05/09/24 History mcg (2,000 unit) capsule (Vitamin D3) dapagliflozin propaned 5 2 tab PO DAILY 05/10/24 05/10/24 05/09/24 History mg-metformin ER 1,000 mg tablet, ext rel 24hr (Xigduo XR) dulaglutide 0.75 mg/0.5 mL 0.75 mg subcut ORO 05/10/24 05/10/24 05/07/24 History subcutaneous pen injector (Trulicity) Exam Height,Weight and Vital Signs: Height 5 ft 4 in Weight 86.183 kg Last Vital Signs Temp 98.8 F 05/10/24 11:29 Pulse 104 H 05/10/24 15:42 Resp 18 05/10/24 15:42 BP 104/57 L 05/10/24 15:42 Pulse Ox 95 05/10/24 15:42 O2 Del Method Room Air 05/10/24 15:42 Pertinent Lab Results Pertinent Lab Results: Laboratory Tests 05/09/24 05/10/24 05/10/24 19:12 11:34 14:47 WBC 11.5 H 29.0 H RBC 4.87 3.73 L D Hgb 14.9 11.6 L D Hct 44.1 33.9 L D MCV 90.6 90.9 MCH 30.6 31.1 MCHC 33.8 34.2 RDW 12.9 13.4 Plt Count 296 192 D MPV 8.8 L 8.8 L Immature Gran % (Auto) 0.3 Neut % (Auto) 72.0 Lymph % (Auto) 21.8 [place] % (Auto) 4.6 Eos % (Auto) 1.0 Baso % (Auto) 0.3 Lymph # (Auto) 2.5 [place] # (Auto) 0.5 Eos # (Auto) 0.1 Baso # (Auto) 0.0 Abs Immat Gran (auto) 0.03 Absolute Neuts (auto) 8.2 Absolute Nucleated RBC 0.000 0.000 Nucleated RBC % (auto) 0.0 0.0 Sodium 141 140 Potassium 4.1 4.0 Chloride 103 108 Carbon Dioxide 27 23 Anion Gap 15 13 BUN 16 18 H Creatinine 0.78 0.84 Estim Creat Clear Calc 87.6 81.3 Estimated GFR > 60 > 60 POC Glucose 170 H Random Glucose 111 169 H Estimat Average Glucose 117 Hemoglobin A1c % 5.7 Calcium 10.5 H 8.4 D Total Bilirubin 0.3 AST 19 ALT 21 Alkaline Phosphatase 35 L Total Protein 8.3 H Albumin 4.4 Urine Color Yellow Urine Appearance Clear Urine pH 7.0 Ur Specific [place] 1.025 Urine Protein Negative Urine Glucose (UA) >=1000 H Urine Ketones Trace Urine Blood Moderate (2+) H Urine Nitrite Negative Ur Leukocyte Esterase Trace H Urine RBC 11-20 H Urine WBC 11-20 H Ur Squamous Epith Cells 3-5 Urine Bacteria 1+ Hyaline Casts 0-2 Urine Test NEGATIVE Airway Mallampati Class: II TM Dist: >3cm Neck ROM: Full Denture: Upper and Lower Loose/Missing/Broken Teeth: No Heart: RRR Lungs: CTA Assessment and Plan Assessment Anesthesia Assessment: Anesthesia Plan Discussed and Chart Reviewed Final Anesthetic Review Family History of Problems with Anesthesia: No History of Problems with Anesthesia: No NPO: Yes ASA Class: III and Emergency Final Preanesthetic Review: No Changes in Pt Med Stat, Meds/Allgs Chart Reviewed, Consent Obtained/Reviewed and Anes Risks/Benef Reviewed Patient Risk: Intermediate Procedure Risk: Low Anesthetic Plan Anesthetic Plan: GA Disposition: Standard PACU
[2024-05-10] MEDS: levoFLOXacin/D5W 500 MG/100 ML PIGGYBACK 100 MG IV (16:03)
[2024-05-10 16:12] LABS: Glucose, Whole Blood 149 mg/dL (60-115)
--- NOTE | 2024-05-10 16:18 | MHC.SHP ---
Pre-Procedural Eval Section A - 24 Hr Update-Section A only Date of Service: 05/10/24 The patient is an INPATIENT: Yes Changes since office visit: No Cold of Flu in the past 2 weeks, No New Medical Problems, No Changes in Medication and No Patient answered all questions The patient has been examined within 24 hours of the surgical procedure. The History & Physical has been completed within 30 days and I have reviewed it.: Yes Section B - Complete if H&P > 30 days Chief Complaint: L ureteral stone, pyrelonephritis Details of Present Illness: Left distal ureteric stone Allergies: Allergies Allergy/AdvReac Type Severity Reaction Status Date / Time No Known Allergies Allergy Verified 05/09/24 18:48 Plan Diagnosis/Plan: Unchanged (Cystoscopy, left retrograde, left ureteroscopy with laser lithotripsy stent placement) I have reviewed the history and physical and performed a pertinent physical examination on my patient. No changes have occurred unless specified. Time Spent With Patient Time: Total time managing care of this patient today ____ minutes.
--- NOTE | 2024-05-10 16:41 | PC.NURSE ---
Informed by EDT Brooke OR marlon came to get patient ~ 10 minutes prior. Called PACU, Amaya confirmed patient is in OR. Report never requested. energy systems engineer made aware.
--- NOTE | 2024-05-10 16:54 | W.PM.OPN ---
Operative Note Operative Note Date of Service: 05/10/24 Narrative: PreOperative Diagnosis: Distal left ureteric stone Post Operative Diagnosis: Distal left ureteric stone Procedure: - cystoscopy, left retrograde - left dilatation of ureteric orifice under fluoroscopy - left ureteroscopy, laser lithotripsy, stone basketing - left stent placement Surgeon: Dr Hemal Tse Anesthesia: General Indications for procedure: Distal left ureteric stone 6 mm. Presentation with hydronephrosis and UTI Procedure: After informed consent was verified the patient was brought to the operating room and placed in a supine position. Anesthesia was administered per protocol. The patient was placed in a modified dorsal lithotomy position and prepped and draped in a sterile fashion. Safety pause time-out and side of surgery were confirmed. Images were available for review. Antibiotic administration confirmed. A 22 [place] cystoscope was inserted per urethra. The urethra was without aabnormality. The bladder was normal in its entirety. Both ureteric orifices were seen in normal position . The left ureteric orifice was cannulated and a retrograde examination was performed. Filling defects seen at projected area . A Sensor guidewire was placed up to the level of the renal pelvis under fluoroscopy. The rigid cystoscope was removed. A [place] dilator was placed over the Sensor guidewire and used to dilate the ureteric orifice under fluoroscopy. The dilator was removed. The semi rigid ureteral scope was placed alongside the Sensor guidewire. Stone was encountered. Using a 365 micro holmium laser fiber the stone was broken into small pieces using a combination of hammer and dusting techiques. Stone fragments were removed from the ureter using a 2.4 [place] ZeroTip basket basket. Once the fragments were removed a decision was made to place a ureteric stent. Based on the height of the patient a 6 Fr x 22 stent was used. The string was removed from the stent prior to placement A 6 [place] by 22 cm double-J stent was placed into the renal pelvis and bladder under a combination of fluoroscopy and direct visualization. The symphisis pubis was used as a radiographic marker to release the stent and good coil was seen within the bladder confirming position The bladder was emptied. The patient tolerated the procedure well and was extubated in the operating room. They were transferred in stable condition to the recovery area. Pathology: stones Drains: Double J stent as described above
[2024-05-10] MEDS: Phenazopyridine HCL 100 MG TABLET PO (17:13)
[2024-05-10 17:47] LABS: Glucose, Whole Blood 154 mg/dL (60-115)
--- NOTE | 2024-05-10 18:30 | PC.NURSE ---
Patient bed assigned, report written/placed and d/c'd off ED list.
[2024-05-10 20:15] LABS: Glucose, Whole Blood 188 mg/dL (60-115)
[2024-05-10] MEDS: oxyCODONE HCl Immed Release 5 MG TABLET PO (20:59)
[2024-05-11] MEDS: Lactated Ringers 1,000 ML 150 ML IVCONT ×2 (00:30→07:26)
[2024-05-11 04:00] VITALS: BP 99/56; PULSE 76; RESP 18; TEMP 36; O2SAT 97
[2024-05-11 05:56] LABS: MANUAL DIFF FLAG NO
[2024-05-11 06:06] LABS: Basophils Absolute Auto 0.1 X10*3/uL (0.0-0.2); Basophils Percent Auto 0.3 % (0-2); Eosinophils Absolute Auto 0.1 X10*3/uL (0.0-0.4); Eosinophils Percent Auto 0.3 % (0-4); Hemoglobin 11.1 g/dl (12.0-16.0); Imm Gran Abs Auto 0.33 X10*3/uL (0.00-0.03); Imm Gran Pct Auto 1.7 % (0.0-0.4); Lymphocytes Percent Auto 15.4 % (20-40); Mean Corpuscular HGB Conc 33.6 g/dl (31.0-35.0); Mean Corpuscular Hemoglobin 30.8 pg (27.0-33.0); Mean Corpuscular Volume 91.7 fL (80.0-98.0); Mean Platelet Volume 9.3 fL (9.4-12.3); Monocytes Absolute Auto 0.9 X10*3/uL (0.1-1.2); Monocytes Percent Auto 4.6 % (2-11); Neutrophils Absolute Auto 15.1 x10*3/uL (2.0-8.3); Neutrophils Percent Auto 77.7 % (45-73); Platelet Count 165 X10*3/uL (160-400); Red Cell Distribution Width 13.6 % (11.0-16.0); White Blood Count 19.5 X10*3/uL (4.8-10.8)
[2024-05-11 06:18] LABS: Anion Gap 10 (12-20); Blood Urea Nitrogen 23 mg/dL (9-16); Calcium 8.3 mg/dL (8.4-10.2); Carbon Dioxide 23 mmol/L (22-29); Chloride 107 mmol/L (96-108); Creatinine Clr Calc Pharmacy 87.6; Estimated Glomerular Filt Rate > 60; Glucose Random 135 mg/dL (60-115); Potassium 3.3 mmol/L (3.3-5.1); Sodium 137 mmol/L (135-145)
[2024-05-11] MEDS: 0.9 % Sodium Chloride Flush 3 ML SYRINGE IVFLUSH (07:25)
[2024-05-11 07:26] VITALS: BP 121/64; PULSE 80; RESP 16; TEMP 36; O2SAT 96
[2024-05-11] MEDS: cefTRIAXone sodium 1 GM in 0.9 % Sodium Chloride 50 ML IV (07:45)
[2024-05-11] MEDS: Morphine Sulfate 4 MG/ML CARTRIDGE IVPUSH (07:45)
[2024-05-11 07:50] LABS: Glucose, Whole Blood 127 mg/dL (60-115)
--- NOTE | 2024-05-11 08:33 | P.DS_ITS ---
DS: Providers Provider Date of Service: 05/11/24 Date of admission: 05/10/24 09:21 Primary care physician: Chavo Fairbanks MD Consults: 05/10/24 09:08 Consult to Urology Routine Consulting Provider: Hemal Tse Reason for consultation: L ureteral stone ?pyelo Has provider been notified: Yes DS: Diagnosis Discharge Diagnosis (1) Calculus of distal left ureter: Status: Acute DS: Summary Hospital Course Hospital Course: admission hpi Chief Complaint: L flank pain, ureteral stone 53 yo f with a pmhx of T2DM, HLD, and YESSICA on CPAP, presented to the ED last night with nausea vomiting and left flank/LLQ pain x12 hours. 8/10 constant pain with intermittent sharp pains. chills, no fever. no urinary frequncy, urgency, or dysuria. no diarrhea or constipation. no hx of similar sx. hospital course: The patient was admitted for treatment of a kidney stone, complicated by acute pyelonephritis and hydronephrosis. She underwent cystoscopy with stent placement and is improving. Her pain has decreased, she is afebrile, and her WBC count has dropped from 29 to 19. Urine culture is positive for She continues to have some residual left flank pain. Urology recommends Flomax, ibuprofen, naproxen, and oxycodone for pain management, along with Bactrim for pyelonephritis. She is scheduled for outpatient follow-up for stent removal. Final diagnoses: 1. acute pylonephritis 2. kidney stone 3. Hydronephrosis Time Attestation Discharge Coordination Time (in mins): 35 Quality: Safe Use of Opioids Does Pt have an Active Cancer Diagnosis on the Problem List?: No Quality: Stroke Does the patient have a stroke diagnosis?: No Physical Exam Vital Signs: Vital Signs: Last Vital Signs Temp 96.8 F 05/11/24 07:26 Pulse 80 05/11/24 07:26 Resp 16 05/11/24 07:26 BP 121/64 05/11/24 07:26 Pulse Ox 96 05/11/24 07:26 O2 Del Method Room Air 05/11/24 07:26 O2 Flow Rate 2 05/10/24 17:29 BMI result Body Mass Index 32.7 Const: Other: General: AO X 3, no acute distress Resp: CTA bilateral CVS: S1,S2,RRR GI: +BS, NT, no distention : mild left flank tenderness Skin: No rash Neuro: motor grossly intact Psych: appropriate affect DS: Data Data Completed and Pending Pending studies at discharge: Pending at discharge 05/10/24 16:51 Surgical [PTH] Routine Labs on day of discharge: Laboratory Results - last 24 hr 05/09/24 05/10/24 05/10/24 19:12 11:34 14:47 WBC 29.0 H RBC 3.73 L D Hgb 11.6 L D Hct 33.9 L D MCV 90.9 MCH 31.1 MCHC 34.2 RDW 13.4 Plt Count 192 D MPV 8.8 L Immature Gran % (Auto) Neut % (Auto) Lymph % (Auto) [place] % (Auto) Eos % (Auto) Baso % (Auto) Lymph # (Auto) [place] # (Auto) Eos # (Auto) Baso # (Auto) Abs Immat Gran (auto) Absolute Neuts (auto) Absolute Nucleated RBC 0.000 Nucleated RBC % (auto) 0.0 Sodium 140 Potassium 4.0 Chloride 108 Carbon Dioxide 23 Anion Gap 13 BUN 18 H Creatinine 0.84 Estim Creat Clear Calc 81.3 Estimated GFR > 60 POC Glucose 170 H Random Glucose 169 H Estimat Average Glucose 117 Hemoglobin A1c % 5.7 Calcium 8.4 D 05/10/24 05/10/24 05/10/24 16:08 17:41 20:11 WBC RBC Hgb Hct MCV MCH MCHC RDW Plt Count MPV Immature Gran % (Auto) Neut % (Auto) Lymph % (Auto) [place] % (Auto) Eos % (Auto) Baso % (Auto) Lymph # (Auto) [place] # (Auto) Eos # (Auto) Baso # (Auto) Abs Immat Gran (auto) Absolute Neuts (auto) Absolute Nucleated RBC Nucleated RBC % (auto) Sodium Potassium Chloride Carbon Dioxide Anion Gap BUN Creatinine Estim Creat Clear Calc Estimated GFR POC Glucose 149 H 154 H 188 H Random Glucose Estimat Average Glucose Hemoglobin A1c % Calcium 05/11/24 05/11/24 05:10 07:35 WBC 19.5 H RBC 3.60 L Hgb 11.1 L Hct 33.0 L MCV 91.7 MCH 30.8 MCHC 33.6 RDW 13.6 Plt Count 165 MPV 9.3 L Immature Gran % (Auto) 1.7 H Neut % (Auto) 77.7 H Lymph % (Auto) 15.4 L [place] % (Auto) 4.6 Eos % (Auto) 0.3 Baso % (Auto) 0.3 Lymph # (Auto) 3.0 [place] # (Auto) 0.9 Eos # (Auto) 0.1 Baso # (Auto) 0.1 Abs Immat Gran (auto) 0.33 H Absolute Neuts (auto) 15.1 H Absolute Nucleated RBC 0.000 Nucleated RBC % (auto) 0.0 Sodium 137 Potassium 3.3 Chloride 107 Carbon Dioxide 23 Anion Gap 10 L BUN 23 H Creatinine 0.78 Estim Creat Clear Calc 87.6 Estimated GFR > 60 POC Glucose 127 H Random Glucose 135 H Estimat Average Glucose Hemoglobin A1c % Calcium 8.3 L Preliminary micro results at discharge 05/09/24 Unknown Urine Culture - Preliminary Urine clean catch - Clean Catch Midstream Gram negative jah Discharge Plan Discharge Anticipated Discharge Date/Time: 05/10/24 16:49 Patient Disposition: Home, Self-Care Discharge Diagnosis: UTi with distal ureteric stone Referrals: Hemal Tse MD [Physician] - 3 days Name,MD Chavo [Primary Care Provider] - 1 Week Discharge Medications: New ibuprofen 600 mg tablet 600 mg PO Q6H PRN (Reason: fever or pain) Qty: 30 0RF oxycodone 5 mg tablet 5 mg PO Q8H PRN (Reason: pain) 3 Days Qty: 8 0RF Rx Instructions: Partial Fill upon patient request. naproxen 500 mg tablet 500 mg PO BID PRN (Reason: pain) 7 Days Qty: 14 0RF sulfamethoxazole-trimethoprim [Bactrim DS] 800-160 mg tablet 1 tab PO BID 7 Days Qty: 14 0RF phenazopyridine [Pyridium] 100 mg tablet 100 mg PO TID PRN (Reason: Spasm) 4 Days Qty: 12 0RF tamsulosin 0.4 mg capsule 0.4 mg PO BEDTIME 14 Days Qty: 14 0RF Continued cyclobenzaprine 10 mg tablet 10 mg PO TID PRN (Reason: muscle spasm) Qty: 7 0RF atorvastatin 20 mg tablet 20 mg PO DAILY cholecalciferol (vitamin D3) [Vitamin D3] 50 mcg (2,000 unit) capsule 50 mcg PO QAM Trulicity 0.75 mg/0.5 mL pen injector 0.75 mg subcut ORO dapaglifloz propaned-metformin [Xigduo XR] 5-1,000 mg tablet, IR - ER, biphasic 24hr 2 tab PO DAILY Discharge Orders: Discharge Order (Routine); Ordered 05/10/24 Ordered By: Hemal Tse Diet: Advance to usual diet Activity on Discharge: As tolerated Stand Alone Forms: Patient Portal Discharge page Print Language: Samoan Activity Restrictions/Additional Instructions: Drink plenty of fluids Your 5 mm of left kidney stone which possibly may pass Take pain medication and Flomax as advised Follow with urologist Report to ER if pain continues or gets worse Care Plan Goals: recovery from kidney stone and bladder infection and kidney infection Health Concerns: kidney stone and infection Plan of Treatment: take cefuroxime as recommended, follow up with Dr. Diaz Assessment: see above Patient Instructions: Ureteral Stones (ED)
[2024-05-11] MEDS: Cholecalciferol (Vitamin D3) 25 MCG TABLET 50 MCG PO (08:38)
[2024-05-11] MEDS: Enoxaparin Sodium 40 MG/0.4 ML SYRINGE SUBCUT (08:38)
[2024-05-11] MEDS: Atorvastatin Calcium 20 MG TABLET PO (08:38)
--- NOTE | 2024-05-11 09:03 | HO.POSTANES ---
Post Anesthesia Evaluation Post Anesthesia Evaluation Date of Service: 05/10/24 Vital Signs: Vital Signs Temp Pulse Resp BP Pulse Ox O2 Del Method 05/11/24 07:26 96.8 F 80 16 121/64 96 Room Air 05/11/24 04:00 96.8 F 76 18 99/56 L 97 Room Air 05/10/24 22:19 18 Anesthesia: General Mental Status: Awake Pain Control: Satisfactory Nausea/Vomiting: None Hydration: Adequate Anesthesia-Related Issues: No Anes. Related Issues
[2024-05-11 11:22] LABS: Glucose, Whole Blood 142 mg/dL (60-115)
[2024-05-11] MEDS: Acetaminophen 325 MG TABLET 650 MG PO (12:38)
[2024-05-11] MEDS: oxyCODONE HCl Immed Release 5 MG TABLET PO (12:38)
[2024-05-17 21:59] LABS: Stone Source LEFT URETERAL STONE
== END 2024-05-11 13:43 | disposition home or self-care (01) | DRG 446 ==
LOC: HO.ED 05-10 06:47 → HO.EDOVER 05-10 09:27 → HO.S3 05-10 17:12
PROVIDERS: Physician Assistant; Urology; Admitting Provider Physician Assistant; Emergency Provider Internal Medicine; PCP Internal Medicine Geriatric Medicine; Visit Provider Internal Medicine
PROC: 0TC78ZZ Extirpation of Matter from Left Ureter, Via Natural or Artificial Opening Endoscopic (ICD-10-PCS; principal; 2024-05-10 16:00)
DX: N13.6 Pyonephrosis (principal); E78.5 Hyperlipidemia, unspecified; G47.33 Obstructive sleep apnea (adult) (pediatric); Z79.85 Long-term (current) use of injectable non-insulin antidiabetic drugs; Z79.899 Other long term (current) drug therapy
CPT/HCPCS: 36415; 74176; 80048; 80053; 81001; 81025; 82365; 82947; 83036; 85025; 85027; 87040; 87086; 87088; 87186; 88300; 93005; 94660; 99285; C1758; C1769; C2617; J0131; J0696; J1100; J1171; J1650; J1885; J1956; J2003; J2270; J2405; J2704; J3010; J7120; Q9967

== ENCOUNTER 2024-05-10 09:21 | Outpatient (BNV) | payer MEDICAID, SELFPAY | END 2024-05-10 09:52 | PROVIDERS: Admitting Provider Physician Assistant; Emergency Provider Internal Medicine; PCP Internal Medicine Geriatric Medicine; Visit Provider Internal Medicine Cardiovascular Disease | DX: R00.0 Tachycardia, unspecified (principal) | CPT/HCPCS: 93010 ==

== ENCOUNTER → 2024-05-10 09:21 | Outpatient (BNV) | payer MEDICAID, SELFPAY | PROVIDERS: Admitting Provider Physician Assistant; Emergency Provider Internal Medicine; PCP Internal Medicine Geriatric Medicine; Visit Provider Physician Assistant | DX: N20.1 Calculus of ureter (principal) | CPT/HCPCS: 99222; 99239 ==

== ENCOUNTER → 2024-05-10 09:21 | Outpatient (BNV) | payer MEDICAID, SELFPAY | PROVIDERS: Admitting Provider Physician Assistant; Emergency Provider Internal Medicine; PCP Internal Medicine Geriatric Medicine; Visit Provider Urology | DX: N20.1 Calculus of ureter (principal) | CPT/HCPCS: 52356; 74420; 99222 ==

== ENCOUNTER 2024-05-19 11:07 | Outpatient (AMB) | payer MEDICAID, SELFPAY ==
--- NOTE | 2024-05-19 11:12 | MHC.OFFVIS ---
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 Patient reports the pain is when she is lifting her arm. Pt states it is hard to carry things in the hand due to the pain in her shoulder. Pt denies any injury to her shoulder. Hx of DJD in her right shoulder, injections in the past when she was in [place] but not in her shoulder. Historic Sites Supervisor Name: Sergei (Daughter) Allergies No Known Allergies Allergy (Verified 05/19/24 11:12) Medication List - Last Reconciled 05/19/24 by Ingris Paulino PA-C atorvastatin 20 mg PO DAILY cefuroxime axetil 500 mg PO BID 8 days cholecalciferol (vitamin D3) (Vitamin D3) 50 mcg PO QAM cyclobenzaprine 10 mg PO TID PRN dapaglifloz propaned-metformin 5-1,000 mg ER (Xigduo XR) 2 tabs PO DAILY dulaglutide (Trulicity) 0.75 mg subcut ORO ibuprofen 600 mg PO Q6H PRN naproxen 500 mg PO BID PRN 7 days oxycodone 5 mg PO Q8H PRN 3 days phenazopyridine (Pyridium) 100 mg PO TID PRN 4 days tamsulosin 0.4 mg PO BEDTIME 14 days HPI HPI FINGERPRINTER Rt shoulder pain: Details: 53-year-old female who presents to the office today for an evaluation of right shoulder pain for about a month. She has not had any injury on her shoulder. She states she has pain in her right shoulder that is aggravated with lifting her arm, reaching and carrying. She has a history of DJD in her right shoulder. She also has a history of diabetes. Her sugar level is well controlled. [facility] Medical History (Updated 05/19/24 @ 11:36 by Ingris Paulino PA-C) YESSICA on CPAP Type 2 diabetes mellitus without complications HLD (hyperlipidemia) Surgical History (Updated 05/10/24 @ 08:44 by Eryn Montano PA-C) Previous section Social History (Updated 05/10/24 @ 08:45 by Eryn Montano PA-C) Household Members: Children Household Members Other:: daughter in her 30s Housing: House Do you presently have visiting nurse or other home services: No Alcohol intake: never Patient Tobacco Use Status: Never used Tobacco Review of Systems Const All systems reviewed & are unremarkable except as noted in HPI and below Physical Exam Const General: cooperative, healthy appearing, comfortable, no acute distress, well developed and alert Orientation/consciousness: patient oriented x3 HEENT Head: Yes normal to inspection, Yes normocephalic and Yes atraumatic Eyes General: appearance normal, both eyes and all related structures Resp Effort & Inspection: normal respiratory effort and able to speak in complete sentences Cardio Rate: regular rate Peripheral pulses: Peripheral pulses 2+ throughout GI Palpation (GI): Soft to palpation Skin Lesions: no lesions Rashes: no rashes Neuro General: patient oriented x3 Extrem Other: Right shoulder: Normal to inspection. Tenderness over the bicipital groove and along the deltoid region of the shoulder. Forward flexion to 175, external rotation to 90, internal rotation to S1. 5/5 RTC strength. Positive Marie and O?Dany?s. NVI. Office Procedures Joint Injection/Aspiration Joint Injection/Aspiration Primary Site: right shoulder Prep: site was prepped using aseptic technique, ethochloride spray was applied and injection warnings given Injected: 40 mg of, DepoMedrol, with 8 mL of, 1% plain lidocaine and in the subcromial space Approach Used: posterolateral Procedure: The patient tolerated the procedure well and there was some relief with the local anesthesia Coding 60617 - Glenohumeral/Tronchanteric Bursa/Intraarticular Procedure code (CPT) selection complete Results Reviewed Results Reviewed: TECHNIQUE: AP external rotation, Grashey, scapular Y, and axillary views of the right shoulder. FINDINGS: Mild loss of right AC joint and glenohumeral joint space without acute fracture or dislocation . The soft tissues are normal. IMPRESSION: Moderate degenerative changes right shoulder joint. No visible acute fracture or dislocation seen. Electronically signed by: Wiliam Oliver MD 04/20/2024 07:40 PM EDT Assessment & Plan Assessment & Plan (1) Osteoarthritis of right shoulder: Code(s): M19.011 - Primary osteoarthritis, right shoulder Category: Medical Plan We discussed options today, which include steroid injection. The patient did consent to move forward with the right shoulder injection, which was tolerated well. I recommended rest, ice, and elevation and OTC anti-inflammatories as needed for discomfort. She was also given a course of physical therapy in the office today. We also discussed diabetes and the effect the steroid injection can have on their blood glucose levels; therefore, they will continue to monitor these very closely over the next 72 hours. If there are concerns, they should report to the ED immediately. Patient Instructions: Scribed for Ingris Paulino PA-C, by Bradford Bentley medical radiation therapist, on 05/19/2024 at 11:15 AM EST.? I, Ingris Paulino PA-C, have personally reviewed and agree with the information entered by the scribe. Coding Level of Care Code New Pt Level 3 (64109) Complex EM visit Add On G2211 Diagnoses Osteoarthritis of right shoulder M19.011 CPT Codes Coding - Joint 7: 56302 - Glenohumeral/Tronchanteric Bursa/Intraarticular ([id number])
== END 2024-05-19 11:35 | disposition home or self-care (01) ==
PROVIDERS: PCP Internal Medicine Geriatric Medicine; Visit Provider Physician Assistant
DX: M19.011 Primary osteoarthritis, right shoulder (principal)
CPT/HCPCS: 20610; 99203

== ENCOUNTER → 2024-05-19 11:07 | Outpatient (BNVA) | payer MEDICAID, SELFPAY | PROVIDERS: PCP Internal Medicine Geriatric Medicine; Visit Provider Physician Assistant | DX: M19.011 Primary osteoarthritis, right shoulder (principal) | CPT/HCPCS: 20610; 99212; J1010; J2003 ==

== ENCOUNTER 2024-05-23 09:03 | Outpatient (AMB) | payer MEDICAID, SELFPAY ==
--- NOTE | 2024-05-23 09:24 | A.OFFVIS_ITS ---
Intake Visit Reasons: cysto stent removal Intake Note: Patient presents today for cystoscopy/stent removal Urology Medications: pyridium Blood Thinner: none What Job Titles Mean Required: No Accompanied by: Self / Same As Patient Allergies No Known Allergies Allergy (Verified 05/23/24 10:04) Medication List - Last Reconciled 05/23/24 by SRUTHI Harris atorvastatin 20 mg PO DAILY cholecalciferol (vitamin D3) (Vitamin D3) 50 mcg PO QAM cyclobenzaprine 10 mg PO TID PRN dapaglifloz propaned-metformin 5-1,000 mg ER (Xigduo XR) 2 tabs PO DAILY dulaglutide (Trulicity) 0.75 mg subcut ORO phenazopyridine (Pyridium) 100 mg PO TID PRN 4 days HPI Comments Details: Darek is a very pleasant 53-year-old female patient of Dr. Fairbanks. She has a past medical history of type 2 diabetes, obstructive sleep apnea, and hyperlipidemia. She presents to the office today for a cystoscopy with left- sided ureteral stent removal. Of note, patient underwent left-sided cystoscopy, left retrograde, left dilatation of ureteric orifice under fluoroscopy, left ureteroscopy, laser lithotripsy, stone basketing, and left stent placement with Dr. Tse 05/10 for distal left 6 mm ureteric stone. In office cystoscopy with left ureteral stent removal was performed. Patient tolerated procedure well. When asked she denies any previous history of nephrolithiasis. She discusses this being her 1st surgical intervention for nephrolithiasis. We discussed potential causes of nephrolithiasis as well as further workup in the near future to include metabolic workup. She does report noting urinary urgency and frequency however we discussed potential for this being related to ureteral stent verses question of a urinary tract infection. She reports having completed antibiotic therapy as prescribed. She otherwise offers no other issues or concerns at this time. [facility] Medical History YESSICA on CPAP Type 2 diabetes mellitus without complications HLD (hyperlipidemia) Surgical History Previous section Social History Household Members: Children Household Members Other:: daughter in her 30s Housing: House Do you presently have visiting nurse or other home services: No Alcohol intake: never Patient Tobacco Use Status: Never used Tobacco Review of Systems Const All systems reviewed & are unremarkable except as noted in HPI and below Physical Exam Const General: cooperative, healthy appearing, comfortable, no acute distress, well developed, alert and awake Orientation/consciousness: patient oriented x3 Limitations: no limitations HEENT Head: Yes normal to inspection, Yes normocephalic and Yes atraumatic Ears: hearing grossly normal bilaterally Eyes General: appearance normal, both eyes and all related structures Neck Neck: Yes normal visual inspection and Yes trachea midline Chest Chest palpation & inspection: normal inspection of the chest Resp Effort & Inspection: normal respiratory effort and able to speak in complete sentences Cardio Rate: regular rate GI Inspection: Yes normal to inspection General: Yes no CVA tenderness External Female Exam: normal external appearance Speculum Exam - Vagina: normal appearance of the vagina Back/Spine/Pelvis Back: no CVA tenderness Skin General skin exam: no rashes or lesions noted Neuro General: patient oriented x3 Extrem General: Yes normal to inspection Psych Appearance: grossly normal and well kempt Mental Status: mental status grossly normal Speech and movement: Normal speech and movement present and Clear speech present Affect: normal affect Attitude: cooperative Thought process: Normal thought process present Thought content: Normal thought content present Insight: Fair insight present (Psych) Judgement: Fair judgement present (Psych) Office Procedures Cystoscopy Consent Discussed risk and benefit or proposed procedure with the patient. Information consent for procedure given to the patient. Discussed technical aspects, risks, benefits and alternatives in full. Addressed all of the patient's questions and concerns regarding the procedure. The patient demonstrated knowledge and understanding. They wish to proceed with this procedure. Preparation The patient was prepped in the usual manner. A diagnostics sales developer was present and in the room. Genitalia was prepped with betadine solution in a sterile manner. Lidocaine Jelly 2% was placed into the urethra and 16Fr flexible Olympus cystoscope was inserted into the meatus after adequate lubrication. Procedure A well lubricated 16 Serbian cystoscope was placed No abnormality noted of urethra during placement Indwelling stent seen within bladder emerging from left ureteric orifices The stent was grasped with a 3 prong grasper and removed without difficulty The patient tolerated the procedure well [id number] with stent removal DISPOSABLE SCOPE URO-G FLEXIBLE SCOPE Procedure code (CPT) selection complete Office Meds lidocaine HCl 2 % mucosal jelly in applicator Performing Provider: SRUTHI Harris Performing Location: [facility] [place] [facility] Administered by: Sukhdev Jewell RN on 05/23/24 09:49 Dose Route Admin Location Dispensed Lot Number Expiration Date [facility] Maid Supervisor 10 mL intra-urethral 10 mL nitrofurantoin monohydrate/macrocrystals 100 mg capsule Performing Provider: SRUTHI Harris Performing Location: [facility] [place] [facility] Administered by: Sukhdev Jewell RN on 05/23/24 09:49 Dose Route Admin Location Dispensed Lot Number Expiration Date [facility] Maid Supervisor 100 mg PO 1 cap naproxen 500 mg tablet Performing Provider: SRUTHI Harris Performing Location: [facility] [place] [facility] Administered by: Sukhdev Jewell RN on 05/23/24 09:49 Dose Route Admin Location Dispensed Lot Number Expiration Date [facility] Maid Supervisor 500 mg PO 1 tab Results AMB Urinalysis, Automated UA Leukoctes 15 Kaelyn/uL Last Edit by Erick Castillo on 05/23/24 09:48 UA Nitrite Last Edit by Erick Castillo on 05/23/24 09:48 UA Urobilinogen 0.2 mg/dL Last Edit by Erick Castillo on 05/23/24 09:48 UA Protein 15 mg/dL Last Edit by Erick Castillo on 05/23/24 09:48 UA pH 5.5 Last Edit by Erick Castillo on 05/23/24 09:48 UA Blood 80 Domo/uL Last Edit by Erick Castillo on 05/23/24 09:48 UA Specific [place] 1.015 Last Edit by Erick Castillo on 05/23/24 09:48 UA Ketone Last Edit by Erick Castillo on 05/23/24 09:48 UA Bilirubin 0 mg/dL Last Edit by Erick Castillo on 05/23/24 09:48 UA Glucose 1000 mg/dL Last Edit by Erick Castillo on 05/23/24 09:48 Results Reviewed Results Reviewed: Laboratory Last Values Urine pH (Auto) 5.5 05/23/24 09:47 Specific [place] (Auto) 1.015 05/23/24 09:47 Urine Protein (Auto) 15 mg/dL 05/23/24 09:47 Glucose (UA)(Auto) 1000 mg/dL 05/23/24 09:47 Urine Blood (Auto) 80 Domo/uL 05/23/24 09:47 Urine Bilirubin (Auto) 0 mg/dL 05/23/24 09:47 Urine Urobilinogen (Auto) 0.2 mg/dL 05/23/24 09:47 Leukocyte Esterase (Auto) 15 Kaelyn/uL 05/23/24 09:47 Assessment & Plan Assessment & Plan (1) UTI (urinary tract infection): Code(s): N39.0 - Urinary tract infection, site not specified Category: Medical (2) Calculus of distal left ureter: Code(s): N20.1 - Calculus of ureter Category: Medical Plan In office urinalysis results reviewed with the patient today; as noted above. Discussed calling office and or seeking medical treatment with any UTI like symptoms. Discussed, educated, and stressed the importance of adequate hydration relation to nephrolithiasis as well as overall health and well-being. Discussed adding 1 oz of lemon juice to water daily. In office cystoscopy with left ureteral stent removal performed today. Will obtain renal ultrasound. Follow-up in 3 months with renal ultrasound to be completed prior; or sooner with any issues, concerns, and or questions. Orders: Orders AMB Urinalysis Automated Today Z13.9 - Encounter for screening, unspecified AMB Cystoscopy Today N20.1 - Calculus of ureter, N39.0 - Urinary tract infection, site not specified US renal BI 2 Months N20.0 - Calculus of kidney Patient Instructions: The patient had an opportunity to ask questions regarding the treatment plan. All questions were answered. Physical exam, labs, and imaging were discussed and reviewed in detail. As well as risks, benefits, and discussion of treatment choices. No major barriers to understanding were identified. The patient expressed understanding and agreement with the above treatment plan. The patient was made aware they should contact our office by phone for worsening of their current condition, the appearance of new symptoms, or with any questions or concerns. Compliance is encouraged with any medications and follow up testing that is ordered. It is a privilege to be allowed the opportunity to participate in? your urological care.? Again, if you have any questions or concerns If you have any questions or concerns please do not hesitate to contact me. The office is [phone]. This note is constructed using voice recognition software. While every effort has been made to ensure accuracy fleet mechanic errors may have been included. Yours sincerely, SHI Harris-MERI Coding Level of Care Code Est Pt Level 3 (47591) Diagnoses UTI (urinary tract infection) N39.0 Calculus of distal left ureter N20.1 CPT Codes Cystoscopy - CPT: 32925-[id number] with stent removal ([id number])
== END 2024-05-23 10:07 | disposition home or self-care (01) ==
PROVIDERS: PCP Internal Medicine Geriatric Medicine; Visit Provider Nurse Practitioner Family
DX: N39.0 Urinary tract infection, site not specified (principal); N20.1 Calculus of ureter; Z13.9 Encounter for screening, unspecified
CPT/HCPCS: 52310; 99213

== ENCOUNTER → 2024-05-23 09:03 | Outpatient (BNVA) | payer MEDICAID, SELFPAY | PROVIDERS: PCP Internal Medicine Geriatric Medicine; Visit Provider Nurse Practitioner Family | DX: N39.0 Urinary tract infection, site not specified (principal); N20.1 Calculus of ureter; Z46.6 Encounter for fitting and adjustment of urinary device | CPT/HCPCS: 52310; 81003; 99212 ==

== ENCOUNTER 2024-07-11 10:31 | Outpatient (REF) | payer MEDICAID, SELFPAY | END 2024-07-11 10:32 | disposition home or self-care (01) | LOC: HO.US 10:31 | PROVIDERS: PCP Internal Medicine Geriatric Medicine; Visit Provider Nurse Practitioner Family | DX: N20.0 Calculus of kidney (principal) | CPT/HCPCS: 76775 ==

== ENCOUNTER 2024-08-21 14:56 | Outpatient (AMB) | payer MEDICAID, SELFPAY ==
--- NOTE | 2024-08-21 14:57 | A.OFFVIS_ITS ---
Intake Visit Reasons: OV Rt shoulder pain Intake Note: Darek a 53 year old female who presents today for a follow up of right shoulder, last injection 05/19/24. Patient reports good relief with injection and would like to repeat injection. She states having discomfort in both of her shoulders. Allergies No Known Allergies Allergy (Verified 08/21/24 15:01) Medication List - Last Reconciled 08/21/24 by Ingris Paulino PA-C atorvastatin 20 mg PO DAILY cholecalciferol (vitamin D3) (Vitamin D3) 50 mcg PO QAM cyclobenzaprine 10 mg PO TID PRN dapaglifloz propaned-metformin 5-1,000 mg ER (Xigduo XR) 2 tabs PO DAILY dulaglutide (Trulicity) 0.75 mg subcut ORO phenazopyridine (Pyridium) 100 mg PO TID PRN 4 days HPI HPI OV Rt shoulder pain: Details: 53-year-old female returns to the office today for follow-up right shoulder pain. She states last injection helped significantly where she was able to perform most activities without pain. Over the last several weeks she has worsening symptoms with overhead reaching and lifting. [facility] Medical History YESSICA on CPAP Type 2 diabetes mellitus without complications HLD (hyperlipidemia) Surgical History Previous section Social History Household Members: Children Household Members Other:: daughter in her 30s Housing: House Do you presently have visiting nurse or other home services: No Alcohol intake: never Patient Tobacco Use Status: Never used Tobacco Review of Systems Const All systems reviewed & are unremarkable except as noted in HPI and below Physical Exam Const General: cooperative, healthy appearing, comfortable, no acute distress, well developed and alert Orientation/consciousness: patient oriented x3 HEENT Head: Yes normal to inspection, Yes normocephalic and Yes atraumatic Eyes General: appearance normal, both eyes and all related structures Resp Effort & Inspection: normal respiratory effort and able to speak in complete sentences Cardio Rate: regular rate Peripheral pulses: Peripheral pulses 2+ throughout GI Palpation (GI): Soft to palpation Skin Lesions: no lesions Rashes: no rashes Neuro General: patient oriented x3 Extrem Other: Right shoulder: Normal to inspection. Tenderness over the bicipital groove and along the deltoid region of the shoulder. Forward flexion to 175, external rotation to 90, internal rotation to S1. 5/5 RTC strength. Positive Marie and O?Dany?s. NVI. Office Procedures AMB Joint Injection/Aspiration Joint Injection/Aspiration Primary Site: right shoulder Prep: site was prepped using aseptic technique, ethochloride spray was applied and injection warnings given Injected: 40 mg of, DepoMedrol, with 8 mL of, 1% plain lidocaine and in the subcromial space Approach Used: posterolateral Procedure: The patient tolerated the procedure well and there was some relief with the local anesthesia Coding 53920 - Glenohumeral/Tronchanteric Bursa/Intraarticular Procedure code (CPT) selection complete Assessment & Plan Assessment & Plan (1) Osteoarthritis of right shoulder: Code(s): M19.011 - Primary osteoarthritis, right shoulder Category: Medical Plan We discussed options today, which include steroid injection. The patient did consent to move forward with the right shoulder injection, which was tolerated well. I recommended rest, ice, and elevation and OTC anti-inflammatories as needed for discomfort. She was also given a course of physical therapy in the office today. We also discussed diabetes and the effect the steroid injection can have on their blood glucose levels; therefore, they will continue to monitor these very closely over the next 72 hours. If there are concerns, they should report to the ED immediately. Coding Level of Care Code Est Pt Level 3 (77237) Complex EM visit Add On G2211 Diagnoses Osteoarthritis of right shoulder M19.011 CPT Codes Coding - Joint 7: 37762 - Glenohumeral/Tronchanteric Bursa/Intraarticular ([id number])
== END 2024-08-21 15:09 | disposition home or self-care (01) ==
PROVIDERS: PCP Internal Medicine Geriatric Medicine; Visit Provider Physician Assistant
DX: M19.011 Primary osteoarthritis, right shoulder (principal)
CPT/HCPCS: 20610; 99213

== ENCOUNTER → 2024-08-21 14:56 | Outpatient (BNVA) | payer MEDICAID, SELFPAY | PROVIDERS: PCP Internal Medicine Geriatric Medicine; Visit Provider Physician Assistant | DX: M19.011 Primary osteoarthritis, right shoulder (principal) | CPT/HCPCS: 20610; 99212; J1010; J2003 ==

== ENCOUNTER 2024-08-24 10:15 | Outpatient (AMB) | payer MEDICAID, SELFPAY ==
--- NOTE | 2024-08-24 10:26 | A.OFFVIS_ITS ---
Intake Visit Reasons: 3m/US Intake Note: Patient presents today for follow up on: kidney stone and ultrasound results * imaging completed: 07/11/24 Urology Medications: none Blood Thinner: none Furniture Detailer Required: No Accompanied by: Self / Same As Patient Allergies No Known Allergies Allergy (Verified 08/24/24 11:03) Medication List - Last Reconciled 08/24/24 by SHI Harris-MERI atorvastatin 20 mg PO DAILY cholecalciferol (vitamin D3) (Vitamin D3) 50 mcg PO QAM cyclobenzaprine 10 mg PO TID PRN dapaglifloz propaned-metformin 5-1,000 mg ER (Xigduo XR) 2 tabs PO DAILY dulaglutide (Trulicity) 0.75 mg subcut ORO HPI Comments Details: Darek is a very pleasant 53-year-old female patient of Dr. Fairbanks. She has a past medical history of type 2 diabetes, obstructive sleep apnea, and hyperlipidemia. She presents to the office today for follow-up of her nephrolithiasis. Of note, patient underwent left-sided cystoscopy, left retrograde, left dilatation of ureteric orifice under fluoroscopy, left ureteroscopy, laser lithotripsy, stone basketing, and left stent placement with Dr. Tse 05/10 for distal left 6 mm ureteric stone. During last office visit patient underwent cystoscopy with left ureteral stent removal at which time a renal ultrasound was ordered. These results reviewed with the patient today. 08/26 bilateral kidneys with no hydronephrosis or renal calculi. Multiple tiny echogenic nonobstructing foci within the left kidney may represent vascular calcifications verses nonobstructive calculi or artifact. In office urinalysis results reviewed with the patient today. PH 5.5. We discussed importance of adequate hydration relation to nephrolithiasis as well as overall health and well-being. She currently denies any bothersome urinary issues. She denies u rinary urgency, urinary frequency, incontinence, nocturia, hematuria, dysuria, foul smelling urine, changes to urinary stream, fever, and or chills. She does note intermittent episodes of flank pain however reports them to be infrequent. She is happy with her current voiding parameters. She otherwise offers no other issues or concerns at this time. [facility] Medical History YESSICA on CPAP Type 2 diabetes mellitus without complications HLD (hyperlipidemia) Surgical History Previous section Social History Household Members: Children Household Members Other:: daughter in her 30s Housing: House Do you presently have visiting nurse or other home services: No Alcohol intake: never Patient Tobacco Use Status: Never used Tobacco Review of Systems Const All systems reviewed & are unremarkable except as noted in HPI and below Physical Exam Const General: cooperative, healthy appearing, comfortable, no acute distress, well developed, alert and awake Orientation/consciousness: patient oriented x3 Limitations: no limitations HEENT Head: Yes normal to inspection, Yes normocephalic and Yes atraumatic Ears: hearing grossly normal bilaterally Eyes General: appearance normal, both eyes and all related structures Neck Neck: Yes normal visual inspection and Yes trachea midline Chest Chest palpation & inspection: normal inspection of the chest Resp Effort & Inspection: normal respiratory effort and able to speak in complete sentences Cardio Rate: regular rate GI Inspection: Yes normal to inspection General: Yes no CVA tenderness External Female Exam: normal external appearance Speculum Exam - Vagina: normal appearance of the vagina Back/Spine/Pelvis Back: no CVA tenderness Skin General skin exam: no rashes or lesions noted Neuro General: patient oriented x3 Extrem General: Yes normal to inspection Psych Appearance: grossly normal and well kempt Mental Status: mental status grossly normal Speech and movement: Normal speech and movement present and Clear speech present Affect: normal affect Attitude: cooperative Thought process: Normal thought process present Thought content: Normal thought content present Insight: Fair insight present (Psych) Judgement: Fair judgement present (Psych) Results AMB Urinalysis, Automated UA Leukoctes 0 Kaelyn/uL Last Edit by Erick Castillo on 08/24/24 10:51 UA Nitrite Last Edit by Erick Castillo on 08/24/24 10:51 UA Urobilinogen 0.2 mg/dL Last Edit by Erick Castillo on 08/24/24 10:51 UA Protein 0 mg/dL Last Edit by Erick Castillo on 08/24/24 10:51 UA pH 5.5 Last Edit by Erick Castillo on 08/24/24 10:51 UA Blood 0 Domo/uL Last Edit by Erick Castillo on 08/24/24 10:51 UA Specific [place] 1.025 Last Edit by Erick Castillo on 08/24/24 10:51 UA Ketone Last Edit by Erick Castillo on 08/24/24 10:51 UA Bilirubin 0 mg/dL Last Edit by Erick Castillo on 08/24/24 10:51 UA Glucose 500 mg/dL Last Edit by Erick Castillo on 08/24/24 10:51 Results Reviewed Results Reviewed: Laboratory Last Values Urine pH (Auto) 5.5 08/24/24 10:37 Specific [place] (Auto) 1.025 08/24/24 10:37 Urine Protein (Auto) 0 mg/dL 08/24/24 10:37 Glucose (UA)(Auto) 500 mg/dL 08/24/24 10:37 Urine Blood (Auto) 0 Domo/uL 08/24/24 10:37 Urine Bilirubin (Auto) 0 mg/dL 08/24/24 10:37 Urine Urobilinogen (Auto) 0.2 mg/dL 08/24/24 10:37 Leukocyte Esterase (Auto) 0 Kaelyn/uL 08/24/24 10:37 Date of Service: 07/11/24 EXAMINATION: US RETROPERITONEAL LIMITED (RENAL ONLY) FINDINGS: RIGHT KIDNEY: 12.0 x 5.2 x 5.1 cm (SAG x AP x TRV). No hydronephrosis. No renal calculi. Renal cortical thickness is normal. Limited visualization. LEFT KIDNEY: 11.9 x 5.9 x 4.4 cm (SAG x AP x TRV). No hydronephrosis. No obstructing renal calculi. Limited visualization. Multiple tiny echogenic nonshadowing foci within the LEFT kidney may represent vascular calcifications, tiny nonobstructive calculi or artifact. IMPRESSION: Multiple tiny echogenic nonshadowing foci within the LEFT kidney may represent vascular calcifications, tiny nonobstructive calculi or artifact. No hydronephrosis Assessment & Plan Assessment & Plan (1) Calculus of distal left ureter: Code(s): N20.1 - Calculus of ureter Category: Medical (2) UTI (urinary tract infection): Code(s): N39.0 - Urinary tract infection, site not specified Category: Medical Plan In office urinalysis results reviewed with the patient today; as noted above. We discussed importance of adequate hydration relation to nephrolithiasis as well as overall health and well-being. Recent renal imaging results reviewed with the patient today; as noted above. Patient currently denies any bothersome urinary issues. She reports be happy with current voiding parameters. Will continue with surveillance monitoring. We discussed adding 1 oz of lemon juice to water daily. Will obtain renal ultrasound in 6 months. Follow-up in 6 months with imaging to be completed prior; or sooner with any issues, concerns, and or questions. Orders: Orders AMB Urinalysis Automated Today Z13.9 - Encounter for screening, unspecified US renal BI 6 Months N20.0 - Calculus of kidney Patient Instructions: The patient had an opportunity to ask questions regarding the treatment plan. All questions were answered. Physical exam, labs, and imaging were discussed and reviewed in detail. As well as risks, benefits, and discussion of treatment choices. No major barriers to understanding were identified. The patient expressed understanding and agreement with the above treatment plan. The patient was made aware they should contact our office by phone for worsening of their current condition, the appearance of new symptoms, or with any questions or concerns. Compliance is encouraged with any medications and follow up testing that is ordered. It is a privilege to be allowed the opportunity to participate in? your urological care.? Again, if you have any questions or concerns If you have any questions or concerns please do not hesitate to contact me. The office is [phone]. This note is constructed using voice recognition software. While every effort has been made to ensure accuracy shell maker lockstitch errors may have been included. Yours sincerely, SRUTHI Harris Coding Level of Care Code Est Pt Level 3 (29700) Diagnoses Calculus of distal left ureter N20.1 UTI (urinary tract infection) N39.0
== END 2024-08-24 11:04 | disposition home or self-care (01) ==
PROVIDERS: PCP Internal Medicine Geriatric Medicine; Visit Provider Nurse Practitioner Family
DX: N20.1 Calculus of ureter (principal); N39.0 Urinary tract infection, site not specified; Z13.9 Encounter for screening, unspecified
CPT/HCPCS: 99213

== ENCOUNTER → 2024-08-24 10:15 | Outpatient (BNVA) | payer MEDICAID, SELFPAY | PROVIDERS: PCP Internal Medicine Geriatric Medicine; Visit Provider Nurse Practitioner Family | DX: N20.1 Calculus of ureter (principal); N39.0 Urinary tract infection, site not specified | CPT/HCPCS: 81003; 99212 ==

== ENCOUNTER 2024-09-11 08:30 | Outpatient (REF) | payer MEDICAID, SELFPAY ==
--- OUTSIDE RECORDS SUMMARY | 2024-09-11 08:43 | XMS_ITS | Encounter Summary ---
Author Organization [employer] Address [address] [facility] 7[address] [place] [address] Care Team Providers Care Associate Sales Name Role Phone Name, Chavo MCMILLAN Primary Care Provider [phone] Gretchen Spears PharmD Unavailable [phone] Encounter Details Date Type Department Care Team (Late st Contact Info) Description 07/11/2024 Orders Only [facility] External Provider, [facility] Social History Tobacco Use Types Packs/Day Years Used Date Smoking Tobacco: Never Smokeless Tobacco: Never Alcohol Use Standard Drinks/Week Comments Never 0 (1 standard drink = 0.6 oz pur e alcohol) Depression Answer Date Recorded Patient Health Questionnaire-9 Score 0 10/25/2023 Patient Health Questionnaire-9 Score 0 10/25/2023 Last PHQ-9: Questionnaire Data Not on file 0 10/25/2023 Housing Stability Answer Date Recorded What is your housing situation today? I have silkealdo lopez 10/18/[address] you li ve. Do you have problems with any of the following? None of the above 10/18/2023 Food Insecurity Answer Date Recorded Within the past 12 months, y ou worried that your food would run out before you got money to buy more: Never True 10/18/2023 Within the past 12 months,th e food you bought just didn't last and you didn't have enough money to get more: Never True Transportation Answer Date Recorded In the past 12 months, has l ack of transportation kept you from medical appts, meetings, work or from getting things needed for daily living? No 10/18/2023 Utilities Answer Date Recorded In the past 12 months, has t he electric, gas, oil or water [employer] threatened to shut off services in your home? No 10/18/2023 Depression Answer Date Recorded Patient Health Questionnaire-2 Score 0 10/25/2023 Comments Unknown Sex and Gender Information Value Date Recorded Sex Assigned at Female 10/04/2023 3:37 PM EST Legal Sex Female 10:09 AM EST Gender Identity Female 10/04/2023 3:37 PM EST Sexual Orientation Straight 10/04/2023 3: 37 PM EST documented as of this encounter Plan of Treatment Not on file documented as of this encounter Goals Goal Patient Goal Type Associated Problems Recent Progress Patient-Stated? Author Hemoglobin A1c < 7 Result Component 6(05/02/2024 9:22 AM EDT) No PuiaGretchen, PharmD Record your blood sugar as directed Result Component No Gretchen Spears, PharmD documented as of this encounter Procedures Procedure Name Priority Date/Time Associated Diagnosis Comments RENAL BI Routine 07/11/2024 11:13 AM EST documented in this encounter Results * US RENAL BI (07/11/2024 11:13 AM EST) Anatomical Region Laterality Modality Abdomen Ultrasound 07/11/2024 11:1 3 AM EST Narrative 08/21/2024 1:32 PM EST ? [facility] ?[address] ?[place] [address] ? Ultrasound Report ? Signed ? Patient: Tahir Frias,Darek ?MR#: ?? [id number] ? : 1970 ?Acct:[id number] ? Age/Sex: 53 / F ?ADM Date: 07/11/24 ? Loc: HO.US ? Attending Dr: Isa BOLIVARP-BC ? Ordering Physician: Isa SalamancaP-BC ?? Date of Service: 07/11/24 ?? Procedure(s): US renal BI ?? Accession Number(s): [id number] ? cc: Isa Salamanca TOOL SETTER-BC; Name,Chavo MCMILLAN ? EXAMINATION: ?? US RETROPERITONEAL LIMITED (RENAL ONLY) ? CLINICAL INFORMATION: ?? Calculus of kidney. ? COMPARISON: ?? CT abdomen and pelvis 05/09/2024. ? TECHNIQUE: ?? Real-time imaging of the kidneys. ? Limited visualization due to bowel gas. ? FINDINGS: ? RIGHT KIDNEY: 12.0 x 5.2 x 5.1 cm (SAG x AP x TRV). No hydronephrosis. ?? No renal calculi. Renal cortical thickness is normal. Limited ?? visualization. ? LEFT KIDNEY: 11.9 x 5.9 x 4.4 cm (SAG x AP x TRV). No hydronephrosis. ?? No obstructing renal calculi. Limited visualization. ? Multiple tiny echogenic nonshadowing foci within the LEFT kidney may ?? represent vascular calcifications, tiny nonobstructive calculi or ?? artifact. ? US/US renal BI ?? IMPRESSION: ? Multiple tiny echogenic nonshadowing foci within the LEFT kidney may ?? represent vascular calcifications, tiny nonobstructive calculi or ?? artifact. No hydronephrosis. ? Electronically signed by: ??Jaylene Amador MD ??08/21/2024 01:29 PM EST ? Dictated By: ?Jaylene Amador MD ? Signed By: ?<Electronically signed by Jaylene Amador MD in OV> ? 08/21/24 1329 ? DD/ 1113 ? TD/TT: 07/11/24 1120 ? Adobe Flex Developer: ? Procedure Note Norma, Image - 08/21/2024 [place] [address] Ultrasound Report Signed Patient: Michael Akhtar#: [id number] : 1970Acct:[id number] Age/Sex: 53 / FADM Date: 07/11/24 Loc: HO.US Attending Dr: Isa NEGRO Ordering Physician: Isa Salamanca Date of Service: 07/11/24 Procedure(s): US renal BI Accession Number(s): [id number] cc: Isa Salamanca; Name,Chavo MCMILLAN EXAMINATION: US RETROPERITONEAL LIMITED (RENAL ONLY) CLINICAL INFORMATION: Calculus of kidney. COMPARISON: CT abdomen and pelvis 05/09/2024. TECHNIQUE: Real-time imaging of the kidneys. Limited visualization due to bowel gas. FINDINGS: RIGHT KIDNEY: 12.0 x 5.2 x 5.1 cm (SAG x AP x TRV). No hydronephrosis. No renal calculi. Renal cortical thickness is normal. Limited visualization. LEFT KIDNEY: 11.9 x 5.9 x 4.4 cm (SAG x AP x TRV). No hydronephrosis. No obstructing renal calculi. Limited visualization. Multiple tiny echogenic nonshadowing foci within the LEFT kidney may represent vascular calcifications, tiny nonobstructive calculi or artifact. US/US renal BI IMPRESSION: Multiple tiny echogenic nonshadowing foci within the LEFT kidney may represent vascular calcifications, tiny nonobstructive calculi or artifact. No hydronephrosis. Electronically signed by: Jaylene Amador MD 08/21/2024 01:29 PM [facility] Dictated By: Jaylene Amador MD Signed By: <Electronically signed by Jaylene Amador MD in OV> 08/21/24 1329 DD/ 1113 TD/TT: 07/11/24 1120 Adobe Flex Developer: [facility] External Provider IMG US PROCEDURES Final Result documented in this encounter Visit Diagnoses Not on filedocumented in this encounter Additional Health Concerns Assessment Noted Time PHQ-9 Depression Total Score: 0 10/25/19 1:07 PM EDT documented as of this encounter Care Teams Associate Sales Relationship Specialty Start Date End Date Name, MD Chavo [address] [place] [address] PCP - General Internal Medicine 10/25/23 Gretchen Spears PharmD [address] [place] [address] Pharmacist Internal Medicine 11/25/23 documented as of this encounter
--- OUTSIDE RECORDS SUMMARY | 2024-09-11 08:43 | XMS_ITS | Encounter Summary ---
Author Organization [employer] Address [address] [facility] 7t [place] [address] Care Team Providers Care Software Developer Mid Level Name Role Phone Name, Chvao MCMILLAN Primary Care Provider [phone] Gretchen Spears PharmD Unavailable [phone] Encounter Details Date Type Department Care Team (Late st Contact Info) Description 05/10/2024 Orders Only [facility] External Provider, [facility] Social History Tobacco Use Types Packs/Day [...] t he electric, gas, oil or water [employer] threatened to shut off services in your [...] Result Component 6(05/02/2024 9:22 AM EDT) No PuGretchen [place] PharmErnesto Record your blood sugar as directed Result Component No Gretchen Spears PharmD documented as of this encounter Procedures Procedure Name Priority Date/Time Associated Diagnosis Comments FL GUIDANCE IN OR Routine 05/10/2024 4:3 0 PM EDT documented in this encounter Results * FL Guidance in OR (05/10/2024 4:30 PM EDT) Anatomical Region Laterality Modality X-Ray Angiograph y 05/10/2024 4:30 PM EDT Narrative 08/21/2024 11:06 AM EST ? [facility] ?[address] ?[place] [address] ? Fluoroscopy Report ? Signed ? Patient: Tahir Frias,Rebekaha ?MR#: ?? [id number] ? : 1970 ?Acct:[id number] ? Age/Sex: 53 / F ?ADM Date: 05/10/24 ? Loc: HO.S3 ?343-1 ? Attending : Barrett Almonte MD ? Ordering Physician: Hemal Tse MD ?? Date of Service: 05/10/24 ?? Procedure(s): FL guidance in OR ?? Accession Number(s): [id number] ? cc: Hemal Tse MD; Name,Chavo MCMILLAN ? EXAMINATION: ?? FLUORO GUIDANCE IN OR ? CLINICAL INFORMATION: ?? Left ureteral stone. Left cystoscopy and stent placement. ? COMPARISON: ?? None available. ? TECHNIQUE: ?? Fluoroscopy supervised by: Dr. Hemal Tse. ?? Fluoroscopy time: 16.6 seconds. ?? Cumulative Dose: 8.78 mGy. ?? DAP: No DAP available on this machine. ?? Images: 2. ? FINDINGS: ?? Fluoroscopic guidance provided for procedure performed by Dr. Tse. ?? Images demonstrate ureteral stent with distal portion curled over ?? pelvis. Please refer to operative report for additional evaluation. ? FL/FL guidance in OR ?? IMPRESSION: ?? Fluoroscopy during procedure. Please see procedure report for ?? additional information. ? Electronically signed by: ??Jaylene Amador MD ??08/21/2024 11:04 AM EST ? Dictated By: ?Jaylene Amador MD ? Signed By: ?<Electronically signed by Jaylene Amador MD in OV> ? 08/21/24 1104 ? DD/ 1630 ? TD/TT: 05/10/24 1650 ? Head Operator Sulfide: ? Procedure Note Donenuiceter, Image - 08/21/2024 [place] [address] Fluoroscopy Report Signed Patient: Chanel AkhtarR#: [id number] : 1970Acct:[id number] Age/Sex: 53 / FADM Date: 05/10/24 Loc: HO.S3 343-[address]: Barrett Almonte MD Ordering Physician: Hemal Tse MD Date of Service: 05/10/24 Procedure(s): FL guidance in OR Accession Number(s): [id number] cc: Hemal Tse MD; Name,Chavo MCMILLAN EXAMINATION: FLUORO GUIDANCE IN OR CLINICAL INFORMATION: Left ureteral stone. Left cystoscopy and stent placement. COMPARISON: None available. TECHNIQUE: Fluoroscopy supervised by: Dr. Hemal Tse. Fluoroscopy time: 16.6 seconds. Cumulative Dose: 8.78 mGy. DAP: No DAP available on this machine. Images: 2. FINDINGS: Fluoroscopic guidance provided for procedure performed by Dr. Tse. Images demonstrate ureteral stent with distal portion curled over pelvis. Please refer to operative report for additional evaluation. FL/FL guidance in OR IMPRESSION: Fluoroscopy during procedure. Please see procedure report for additional information. Electronically signed by: Jaylene Amador MD 08/21/2024 11:04 AM EST Dictated By: Jaylene Amador MD Signed By: <Electronically signed by Jaylene Amador MD in OV> 08/21/24 1104 DD/ 1630 TD/TT: 05/10/24 1650 Head Operator Sulfide: [facility] External Provider IMG IR PROCEDURES Final Result documented in this encounter Visit Diagnoses Not on filedocumented in this encounter Additional Health Concerns Assessment Noted Time PHQ-9 Depression Total Score: 0 10/25/19 1:07 PM EDT documented as of this encounter Care Teams Software Developer Mid Level Relationship Specialty Start Date End Date Name, MD Chavo [address] [place] [address] PCP - General Internal Medicine 10/25/23 Gretchen Spears PharmD [address] [place] [address] Pharmacist Internal Medicine 11/25/23 documented as of this encounter
--- OUTSIDE RECORDS SUMMARY | 2024-09-11 08:43 | XMS_ITS | Encounter Summary ---
Author Organization [employer] Address [address] [place] [address] 7t [place] [address] Care Team Providers Care Adobe Architect Name Role Phone Name, Chavo MCMILLAN Primary Care Provider [phone] Gretchen Spears PharmD Unavailable [phone] Reason for Visit * Reason Onset Date Comments Med Refill 06/19/2024 Encounter Details Date Type Department Care Team (Late st Contact Info) Description 06/19/2024 Refill [facility] MEDICINE [address] [place], [place] [phone] Name, MD Chavo [address] [place] [address] Type 2 diabetes mellitus without complication, unspecified whether termite treater helper insulin use ([facility]) Social History Tobacco Use Types Packs/Day Years [...] is your housing situation today? I have silke sing 10/18/[address] you li [...] t he electric, gas, oil or water company threatened to shut off services in your [...] Result Component 6(05/02/2024 9:22 AM EDT) No Gretchen Spears, PharmD Record your blood sugar as directed Result Component No Gretchen Spears, PharmD documented as of this encounter Visit Diagnoses Diagnosis Type 2 diabetes mellitus without complication, unspecified whether termite treater helper insulin use ([facility]) documented in this encounter Additional Health Concerns Assessment Noted Time PHQ-9 Depression Total Score: 0 10/25/19 24 1:07 PM EDT documented as of this encounter Care Teams Adobe Architect Relationship Specialty Start Date End Date Name, MD Chavo [address] [place] [address] PCP - General Internal Medicine 10/25/23 Gretchen Spears PharmD [address] [place] [address] Pharmacist Internal Medicine 11/25/23 documented as of this encounter
--- OUTSIDE RECORDS SUMMARY | 2024-09-11 08:43 | XMS_ITS | Encounter Summary ---
Author Organization [employer] Address [address] [place] [address] 7t [place] [address] Care Team Providers Care Sky Diver Name Role Phone Name, Chavo MCMILLAN Primary Care Provider [phone] Gretchen Spears PharmD Unavailable [phone] Reason for Visit * Reason Onset Date Comments Med Refill 08/05/2024 Encounter Details Date Type Department Care Team (Late st Contact Info) Description 08/05/2024 Refill [facility] MEDICINE [address] [place], [place] [phone] Name, MD Chavo [address] [place] [address] Social History Tobacco Use Types Packs/Day Years [...] your housing situation today? I have silke lopez 10/18/[address] you [...] documented as of this encounter Visit Diagnoses Not on filedocumented in this encounter Additional Health Concerns Assessment Noted Time PHQ-9 Depression Total Score: 0 10/25/19 24 1:07 PM EDT documented as of this encounter Care Teams Sky Diver Relationship Specialty Start Date End Date Name, MD Chavo [address] [place] [address] PCP - General Internal Medicine 10/25/23 Gretchen Spears, PharmD [address] [place] [address] Pharmacist Internal Medicine 11/25/23 documented as of this encounter
--- OUTSIDE RECORDS SUMMARY | 2024-09-11 08:43 | XMS_ITS | Encounter Summary ---
Author Organization [employer] Address [address] [facility] 7t [place] [address] Care Team Providers Care Cna Per Diem Name Role Phone Name, Chavo MCMILLAN Primary Care Provider [phone] Gretchen Spears PharmD Unavailable [phone] Encounter Details Date Type Department Care Team ([facility] st Contact Info) Description 08/22/2024 Telephone [facility] MEDICINE [address] [place], [place] [phone] Lidya Blake RN Social History Tobacco Use Types Packs/Day Years [...] t he electric, gas, oil or water [employer] threatened to shut off services in your home? No 10/18/2023 Depression Answer Date Recorded Patient Health Questionnaire-2 Score 0 10/25/2023 Comments Unknown Sex and Gender Information Value Date Recorded Sex Assigned at Female 10/04/2023 3:37 PM EST Legal Sex Female 10:09 AM EST Gender Identity Female 10/04/2023 3:37 PM EST Sexual Orientation Straight 10/04/2023 3: 37 PM EST documented as of this encounter Miscellaneous Notes * Telephone Encounter - Lidya Blake RN - 08/22/2024 11:39 AM EST Pt and her daughter present to the office regarding sleep study. Lidya Blake RN spoke to pt on 08/18/24 regarding provider message. Daughter wanted to confirm she has to call sleep specialist regarding titration study. Pt daughter reports she spoke to their office and they were confused. Advisedpt and her daughter to call sleep specialist and state that she needs a titration study. Pt and prieto harris verbalized understanding. Advised to call office with any questions or concerns. documented in this encounter Plan of Treatment Not on file documented as of this encounter Goals Goal Patient Goal Type Associated Problems Recent Progress Patient-Stated? Author Hemoglobin A1c < 7 Result Component 6(05/02/2024 9:22 AM EDT) No Puia, Gretchen, PharmD Record your blood sugar as directed Result Component No Puia, Gretchen, PharmD documented as of this encounter Visit Diagnoses Not on filedocumented in this encounter Additional Health Concerns Assessment Noted Time PHQ-9 Depression Total Score: 0 10/25/19 24 1:07 PM EDT documented as of this encounter Care Teams Cna Per Diem Relationship Specialty Start Date End Date Name, MD Chavo [address] [place] [address] PCP - General Internal Medicine 10/25/23 Puia, Gretchen, PharmD [address] [place] [address] Pharmacist Internal Medicine 11/25/23 documented as of this encounter
--- OUTSIDE RECORDS SUMMARY | 2024-09-11 08:43 | XMS_ITS | Clinical Summary ---
Author Organization [employer] Address [address] [place] [address] 7[address] [place] [address] Care Team Providers Care Biofuels Processing Technician Name Role Phone Name, Chavo MCMILLAN Primary Care Provider [phone] Gretchen Spears PharmD Unavailable [phone] Allergies No known active allergies Medications Blood Glucose Monitoring Suppl (FreeStyle Lite) w/Device kit 1 each in the morning. 1 kit 10/04/19 24 025 Active glucose blood test strip Use as instructed 100 each 12 10/04/19 24 Active atorvastatin (Lipitor) 20 MG tablet Take 1 tablet (20 mg) by mouth in the morning. 30 tablet 11 10/25/19 24 025 Active TRUEplus Lancets 33G misc USE DIRECTED TO TEST BLOOD SUGAR EVERY DAY IN THE MORNING 10/04/19 24 Active D3 Super Strength 50 MCG (2000 UT) capsule TAKE 1 CAPSULE BY MOUTH EVERY DAY IN THE MORNING 10/25/19 24 Active dapagliflozin- metFORMIN ER (Xigduo XR) 5-1000 MGIndications: Type 2 diabetes mellitus without complication, unspecified whether longterm insulin use ([facility]) Take 2 tablets by mouth with breakfast. 60 tablet 11 05/02/20 24 025 Active phenazopyridin e (Pyridium) 100 MG tablet TAKE 1 TABLET BY MOUTH THREE TIMES DAILY NEEDED FOR SPASMS FOR 4 DAYS 05/16/20 24 Active ibuprofen 200 MG tablet Take 2 tablets by mouth every 8 (eight) hours if needed for mild pain. OTC Active acetaminophen (Tylenol) 325 MG tablet Take 2 tablets by mouth every 6 (six) hours if needed for mild pain. OTC Active Dulaglutide (Trulicity) 1.5 MG/0.5ML solution auto-injector Inject 1.5 mg under the skin 1 (one) time per week. 2 mL 2 09/06/19 25 026 Active Dulaglutide (Trulicity) 1.5 MG/0.5ML solution auto-injector Inject 0.5 mL (1.5 mg) under the skin 1 (one) time per week. 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 Not likely xanthoma. No sign of infection. -referred to dermatology 06/06/24 Type 2 diabetes mellitus without complication Assessment & Plan (10/04/2023 4:39 PM EST): Uncontrolled, A1c improving from 9.3 (Mychart from previous PCP reviewed). Increase Farxiga to 10mg/d and continue Janumet same dose. Needs to fu with new PCP in 4-6w semiconductor package symbol stamper visit. Order labs Counseled re more frequent low calorie/carb meals. Encouraged physical activity as tolerated. Dizziness 10/04/2023 Assessment & Plan (10/04/2023 4:39 PM EST): Due to uncontrolled Dm. Adjust meds as above, order labs YESSICA (obstructive sleep apnea) 10/04/2023 Assessment & Plan (10/04/2023 4:38 PM EST): Continue using CPAP every night to decrease morbidity and mortality Will need a new titration sleep study when established with new PCP. Hyperlipidemia 10/04/2023 Assessment & Plan (10/04/2023 4:42 PM EST): On atorvastatin 20 mg, out of it. Recommended moderate amount of exercise and increased consumption of fruit, vegetables, fish and high fiber foods. We discussed about avoiding consumption of highly saturated fats or trans fats. Obesity (BMI 30-39.9) 03/16/2023 Encounters Date Type Department Care Team Description 09/06/2024 9:45 AM EST Office Visit [facility] MEDICINE [address] [place] [address] Chavo Fairbanks MD Type 2 diabetes mellitus without complication, without long-term current use of insulin (CMS/HCC) (Primary Dx); Elevated blood pressure reading 08/22/2024 Telephone [facility] MEDICINE [address] [place] [phone] Lidya Blake RN 08/05/2024 Refill [facility] MEDICINE [address] [place] [address] Chavo Fairbanks MD 08/05/2024 Refill [facility] WALK-IN CENTER [address] [place] [phone] Katina Cabrera MD 08/05/2024 Refill [facility] MEDICINE [address] [place] [phone] Chavo Fairbanks MD 07/11/2024 Orders Only [facility] External Provider, [facility] 07/07/2024 9:30 AM EST Office Visit [facility] MEDICINE [address] [place] [phone] Chavo Fairbanks MD Renal stone (Primary Dx); Type 2 diabetes mellitus without complication, unspecified whether ferry terminal supervisor insulin use (CMS/HCC); Hyperglycemia; Healthcare maintenance; Screening for colon cancer; Tinea corporis 07/06/2024 Telephone [facility] MEDICINE [address] [place] [phone] Brittney Medrano MA Chart Prep 07/06/2024 Telephone [facility] MEDICINE [address] [place] [address] Brittney Medrano MA 06/21/2024 9:00 AM EST Office Visit [facility] OPTOMETRY [address] [place] [address] Presbyopia (Primary Dx) 06/21/2024 Travel 06/19/2024 Refill [facility] MEDICINE [address] [place] [address] Chavo Fairbanks MD Type 2 diabetes mellitus without complication, unspecified whether longterm insulin use (CMS/HCC) from Last 3 Months Immunizations Name Administration Dates Next Due Hep A, Adult 01/11/2024 HepB-CpG 01/11/2024 Influenza Injectable Quadriv alant Preservative Free IIV4 MDCK 05/06/2022 Influenza, seasonal, injectable, preservative fr ee 04/26/2024 Pneumococcal Conjugate PCV 20 04/26/2024 Pneumococcal Polysaccharide PPSV23 10/11/2019 Tdap 11/25/2023 Social History Tobacco Use Types Packs/Day Years Used Date Smoking Tobacco: Never Smokeless Tobacco: Never Tobacco Cessation:Counseling Given: Not Answered Alcohol Use Standard Drinks/Week Comments Never 0 [...] Orientation Straight 10/04/2023 3: 37 PM EST Last Filed Vital Signs Vital Sign Reading Time Taken Comments Blood Pressure 121/82 09/06/2024 10:03 AM EST Pulse 88 09/06/2024 9:49 AM EST Temperature 37.1 ??C (98.8 ??F) 09/06/2024 9:49 AM ES T Respiratory Rate 22 09/06/2024 9:49 AM EST Oxygen Saturation 98% 09/06/2024 9:49 AM EST Inhaled Oxygen Concentration - - Weight 93 kg (205 lb) 09/06/2024 9:49 AM EST Height 160 cm (5' 3 ) 09/06/2024 9:49 AM EST Body Mass Index 36.31 09/06/2024 9:49 AM EST Plan of Treatment Health Maintenance Due Date Last Done Comments CT Colonography 1969 Colonoscopy 1969 Colorectal Cancer Screening 1969 FIT DNA/Cologuard 1969 FIT 1969 FOBT 1969 HIV Screening 1969 Sigmoidoscopy 1969 Diabetes: Foot Exam 11/16/1979 Pap Smear 1990 Cervical Cancer Screening 11/16/1999 HPV/Cotest 11/16/1999 Hepatitis B Vaccines (2 of 2 - CpG 2-dose series) 02/08/2024 01/11/2024 COVID-19 Vaccine ( season) 2024 Zoster Vaccines (2 of 2) 07/13/2024 05/18/2024 Diabetes: Hemoglobin A1C 08/02/2024 024, 01/11/2024, 10/04/2023 Diabetes: Urine Protein Screening 10/07/2024 10/08/2023 SDOH Screening 10/17/2024 10/18/2023 Depression Screening 10/24/2024 10/25/2023, 10/25/19 24 Lipid Panel 01/16/2025 01/17/2024, 10/08/2023 Alcohol/Substance Use Screening 01/17/2025 01/18/2024 Tobacco Screening 09/06/2025 09/06/2024 Mammogram 03/06/2026 03/06/2024, 08/0 12/2023, 10/02/2021, Additional history exists Eye Exam 05/18/2026 05/18/2024, 05/02, 05/18/2024, Additional history exists DTaP/Tdap/Td Vaccines (2 - Td or Tdap) 11/24/2033 11/25/2023 RSV Patients and Patients Aged 60 years or older (1 - 1-dose 75+ series) 2044 Hepatitis C Screening Completed 10/08/2023 Hepatitis A Vaccines Aged Out 01/11/2024 No long er eligible based on patient's age to complete this topic Influenza Vaccine Completed 04/26/2024, 05/06/2022 Pneumococcal Vaccine: 50+ Years Completed 04/26/2024, 10/11/2019 HIB Vaccines Aged Out No longer eligi ble based on patient's age to complete this topic HPV Vaccines Aged Out No longer eligi ble based on patient's age to complete this topic IPV Vaccines Aged Out No longer eligi ble based on patient's age to complete this topic Meningococcal Vaccine Aged Out No reno juan eligible based on patient's age to complete this topic RSV under 20 months Aged Out No longe r eligible based on patient's age to complete this topic Rotavirus Vaccines Aged Out No longer eligible based on patient's age to complete this topic Goals Goal Patient Goal Type Associated Problems Recent Progress Patient-Stated? Author Hemoglobin A1c < 7 Result Component 6(05/02/2024 9:22 AM EDT) No Gretchen Spears PharmD Record your blood sugar as directed Result Component No Gretchen Spears PharmD Procedures Procedure Name Priority Date/Time Associated Diagnosis Comments POCT GLUCOSE Routine 09/06/2024 9:51 AM EST Type 2 diabetes mellitus without complication, without long-term current use of insulin ([facility]) US RENAL BI Routine 07/11/2024 11:13 AM EST POCT GLYCATED HEMOGLOBIN, TOTAL Routine 05/02/2024 9:22 AM EDT Type 2 diabetes mellitus without complication, unspecified whether ferry terminal supervisor insulin use ([facility]) BI MAMMOGRAM DIAGNOSTIC TOMOSYNTHESIS BILATERAL Routine 03/06/2024 2:06 PM EDT Painful lumpy right breast LIPID PANEL, STANDARD Routine 01/17/2024 8:59 AM EDT ALBUMIN, RANDOM URINE W/CREATININE Routine 10/08/2023 9:45 AM EST Type 2 diabetes mellitus without complication, unspecified whether longterm insulin use (CMS/HCC) HEPATITIS PANEL, GENERAL Routine 10/08/2023 9:30 AM EST Dizziness from Last 3 Months or Most Recently Relevant to Health Maintenance Results * POCT Glucose (09/06/2024 9:51 AM EST) Glucose Blood, POC 109 60 - 200 mg/dL QC Media Lot # [id number] Lot# Expiration Date 53 Blood Capillary blood specimen / Unknown 09/06/2024 9:51 AM EST us Chavo Name MD POINT OF CARE TEST ENTER/EDIT OR DERABLES Final Result * US RENAL BI (07/11/2024 11:13 AM EST) Anatomical Region Laterality Modality Abdomen Ultrasound 07/11/2024 11:1 3 AM EST Narrative 08/21/2024 1:32 PM EST ? [facility] ?[address] ?[place] [address] ? Ultrasound Report ? Signed ? Patient: Tahir Frias,Darek ?MR#: ?? [id number] ? : 1970 ?Acct:[id number] ? Age/Sex: 53 / F ?ADM Date: 07/11/24 ? Loc: HO.US ? Attending Dr: Isa NEGRO ? Ordering Physician: Isa Salamanca ?? Date of Service: 07/11/24 ?? Procedure(s): US renal BI ?? Accession Number(s): [id number] ? cc: Isa Salamanca STONE CUTTER-BC; Name,Chavo MCMILLAN ? EXAMINATION: ?? US RETROPERITONEAL [...] DD/ 1113 ? TD/TT: 07/11/24 1120 ? Fiber Optic Assembler: ? Procedure Note Norma, Image - 08/21/2024 [place] [address] Ultrasound Report Signed Patient: Michael Akhtar#: [id number] : 1970Acct:[id number] Age/Sex: 53 / FADM Date: 07/11/24 Loc: HO.US Attending Dr: Isa NEGRO Ordering Physician: Isa Salamanca Date of Service: 07/11/24 Procedure(s): US renal BI Accession Number(s): [id number] cc: Isa Salamanca; Name,Chavo MCMILLAN EXAMINATION: US [...] by: Jaylene Amador MD 08/21/2024 01:29 PM EST Dictated By: Jaylene Amador MD Signed By: <Electronically signed by Jaylene Amador MD in OV> 08/21/24 1329 DD/ 1113 TD/TT: 07/11/24 1120 Fiber Optic Assembler: [facility] External Provider IMG US PROCEDURES Final Result * POCT HGB A1C (05/02/2024 9:22 AM EDT) Hemoglobin A1C 6.0 4.0 - 6.0 % QC Media Lot # [id number] Lot# Expiration Date 937 Blood 05/02/2024 9:22 AM EDT Chavo Fairbanks MD POINT OF CARE TEST ENTER/EDIT OR DERABLES Final Result * BI Mammogram Diagnostic Tomosynthesis Bilateral (03/06/2024 2:06 PM EDT) Anatomical Region Laterality Modality Breast Bilateral Mammography 03/06/2024 2:06 PM EDT Narrative 03/06/2024 2:57 PM EDT ? [facility] ? [address] ?[place] [address] ? Mammography Report ? Signed ? Patient: Giovana,Lizaida ?MR#: ?? [id number] ? : 1970 ?Acct:[id number] ? Age/Sex: 53 / F ?ADM Date: 03/06/24 ? Loc: HO.MAMMO ? Attending Dr: Chavo Fairbanks MD ? Ordering Physician: Magdi,Chavo MCMILLAN ?Results: 1Negative ? Date of Service: 03/06/24 ?Follow Up: 1 Year From Orig ?? inal Mammogram ? Procedure(s): MM tomosynthesis diagnostic BI ?? Accession Number(s): [id number] ? cc: Name,Chavo MCMILLAN ? EXAMINATION: ?? MM DIAGNOSTIC DIGITAL BREAST TOMOSYNTHESIS, BILATERAL ?? US BREAST LIMITED, RIGHT ? MAMMOGRAPHY: ?? CLINICAL INFORMATION: ? 53-year-old female complaining of right breast pain/palpable focus ?? approximate 11:00 axis, anterior one third. As per technologist note, ?? history of breast cancer in sister at age 48. ? COMPARISON: ?? Bilateral Mammography and right breast ultrasound 10/02/2021 from ?? [facility]. ? TECHNIQUE: ?? Digital breast tomosynthesis is performed in both the craniocaudal and ?? mediolateral oblique views along with computer-aided detection (CAD). ?? Synthesized 2D images are generated from the tomosynthesis. In addition ?? to standard views, full-field 3-D right mediolateral view was obtained, ?? as well as spot compression 3-D right MLO and CC views. ? FINDINGS: ?? There are scattered areas of fibroglandular density (ACR BI-RADS breast ?? composition Category b). ? There are no suspicious masses, suspicious grouped calcifications, or ?? areas of architectural distortion in either breast. The parenchymal ?? pattern is stable from prior exams. There is no skin or axillary ?? abnormality. ? There is no mammographic abnormality in the upper outer quadrant, in ?? the region of interest marked by the technologist with the aid of the ?? patient. ? ULTRASOUND: ?? CLINICAL INFORMATION: ?? As above. ? COMPARISON: ?? 10/02/2021. ? TECHNIQUE: ?? Targeted sonographic evaluation right breast was performed using a high ?? frequency linear transducer. Attention was given to the right breast ?? spanning 10:00 to 2:00, including the area of concern. Selected ?? archived documentation. ? FINDINGS: ? RIGHT BREAST: There is a mixture of fatty and fibroglandular tissue. ?? No suspicious mass is seen. ??There is no pathologic acoustic shadowing. ?? There is no cystic abnormality. ? There is no ultrasound abnormality in the right breast upper outer ?? quadrant in the region of interest. ? MM/MM tomosynthesis diagnostic BI ?? IMPRESSION: ?? There are no findings suspicious for malignancy in either breast. ? There is no mammographic or sonographic correlate to the focus of ?? palpable concern/pain in the upper outer right breast, anterior one ?? third. Recommend clinical management and follow-up. ? Otherwise, recommend the patient resume routine annual screening ?? mammography. ? OVERALL ASSESSMENT: ?? Mammography: BI-RADS 1 - Negative ?? Ultrasound: BI-RADS 1 - Negative ? RECOMMENDATION: ?? 1. Patient should be managed based on the clinical impression. ?2. ?? Otherwise, routine annual screening mammography. ? This patient's information was entered into a reminder system with a ?? target due date for their next mammogram. ? Dictated By: ?Drew Jones MD ? Signed By: ?<Electronically signed by Drew Jones MD in OV> ?03/06/24 1453 ? DD/ 1406 ? TD/TT: ? Fiber Optic Assembler: ? Procedure Note Donotuseinterpreter, Image - 03/06/2024 [facility] [address] [place], [place] [address] Mammography Report Signed Patient: Chanel AkhtarR#: [id number] : 1970Acct:[id number] Age/Sex: 53 / FADM Date: 03/06/24 Loc: HO.MAMMO Attending Dr: Chavo Fairbanks MD Ordering Physician: Chavo Fairbanks MDResults: 1Negative Date of Service: 03/06/24Follow Up: 1 Year From Orig inal Mammogram Procedure(s): MM tomosynthesis diagnostic BI Accession Number(s): [id number] cc: Chavo Fairbanks MD EXAMINATION: MM DIAGNOSTIC DIGITAL BREAST TOMOSYNTHESIS, BILATERAL US BREAST LIMITED, RIGHT MAMMOGRAPHY: CLINICAL INFORMATION: 53-year-old female complaining of right breast pain/palpable focus approximate 11:00 axis, anterior one third. As per technologist note, history of breast cancer in sister at age 48. COMPARISON: Bilateral Mammography and right breast ultrasound 10/02/2021 from [facility]. TECHNIQUE: Digital breast tomosynthesis is performed in both the craniocaudal and mediolateral oblique views along with computer-aided detection (CAD). Synthesized 2D images are generated from the tomosynthesis. In addition to standard views, full-field 3-D right mediolateral view was obtained, as well as spot compression 3-D right MLO and CC views. FINDINGS: There are scattered areas of fibroglandular density (ACR BI-RADS breast composition Category b). There are no suspicious masses, suspicious grouped calcifications, or areas of architectural distortion in either breast. The parenchymal pattern is stable from prior exams. There is no skin or axillary abnormality. There is no mammographic abnormality in the upper outer quadrant, in the region of interest marked by the technologist with the aid of the patient. ULTRASOUND: CLINICAL INFORMATION: As above. COMPARISON: 10/02/2021. TECHNIQUE: Targeted sonographic evaluation right breast was performed using a high frequency linear transducer. Attention was given to the right breast spanning 10:00 to 2:00, including the area of concern. Selected archived documentation. FINDINGS: RIGHT BREAST: There is a mixture of fatty and fibroglandular tissue. No suspicious mass is seen. There is no pathologic acoustic shadowing. There is no cystic abnormality. There is no ultrasound abnormality in the right breast upper outer quadrant in the region of interest. MM/MM tomosynthesis diagnostic BI IMPRESSION: There are no findings suspicious for malignancy in either breast. There is no mammographic or sonographic correlate to the focus of palpable concern/pain in the upper outer right breast, anterior one third. Recommend clinical management and follow-up. Otherwise, recommend the patient resume routine annual screening mammography. OVERALL ASSESSMENT: Mammography: BI-RADS 1 - Negative Ultrasound: BI-RADS 1 - Negative RECOMMENDATION: 1. Patient should be managed based on the clinical impression. 2. Otherwise, routine annual screening mammography. This patient's information was entered into a reminder system with a target due date for their next mammogram. Dictated By: Drew Jones MD Signed By: <Electronically signed by Drew Jones MD in OV> 03/06/24 1453 DD/ 1406 TD/TT: Fiber Optic Assembler: Chavo Name IM BI PROCEDURES Final Result * (ABNORMAL) Lipid Panel, Standard (01/17/2024 8:59 AM EDT) Triglycerides 138 <150 mg/dL [facility] Comment:Desirable Triglyceri de: less than 150 mg/dLBorderline High Triglyceride 150-199 mg/dLHigh Triglyceride: 200-499 mg/dLVery High Triglyceride: greater than or equal to 5OO mg/dL Cholesterol 123 <200 mg/dL [facility] Comment:Desirable Cholestero l: less than 200 mg/dLBorderline High Cholesterol: 200-239 mg/dLHigh Cholesterol: greater than 239 mg/dL LDL Cholesterol Calculated 65 <100 mg/dL [facility] Comment:Desirable LDL: less than 100 mg/dLNear Optimal/Above Optimal LDL: 110- 129 mg/dLBorderline High LDL: 130-159 mg/dLHigh LDL: 160-189 mg/dLVery High LDL: greater than or equal to 190 mg/dL HDL Cholesterol 31(L) >40 mg/dL [facility] Comment:Desirable HDL: great er than 40 mg/dL Note: This HDL assay may give artificially low results in patients with liver disease. 01/17/2024 8:59 AM EDT 01/17/2024 11:16 AM EDT Chavo Fairbanks MD LAB BLOOD ORDERABLES Final Resul t Performing Organization Address [facility] de Phone Number [facility] [address] [place] [phone] * Albumin, Random Urine W/Creatinine (10/08/2023 9:45 AM EST) Creatinine, Urine 151.93 mg/dL [facility] Microalbumin Urine 35.0 mg/L [facility] Microalbum Creatinine Ratio Ur 23.0 <30 ug/mg cr [facility] Comment:Albumin/Creatinine R atio Reference Ranges: Normal: < 30 ug/mg creatinine Microalbuminuria: 30 - 300 ug/mg creatinineClinical Albuminuria: > 300 ug/mg creatinine Urine (Urine, Random) 10/08/2023 9:45 AM EST 10/08/2023 11:18 AM EST Katina Cabrera MD LAB URINE ORDERABLES Fin al Result Performing Organization Address [facility] Co de Phone Number [facility] [address] [place] [phone] Hepatitis Panel, General (10/08/2023 9:30 AM EST) Hepatitis A IgM Nonreactive Nonreactive [facility] Comment:IgM antibodies to MASSEY V not detected; does not exclude earlyacute or recovered HAV infection. ~Hepatitis B Surface Antibody NONREACTIVE Nonreactive [facility] Comment:Nonreactive: < 8.00 mIU/mL Hepatitis B Core Antibody Nonreactive Nonreactive [facility] Hepatitis C Antibody Nonreactive Nonreactive [facility] Comment:Antibodies to HCV no t detected; does not exclude early acuteHCV infection. Hepatitis B Surface Ag Negative Negative [facility] Blood 10/08/2023 9:30 AM EST 10/08/2023 11:29 AM EST us Katina Cabrera MD LAB BLOOD ORDERABLES Fin al Result [facility] [address] [place] [phone] from Last 3 Months or Most Recently Relevant to Health Maintenance Insurance [facility] C3 HSN PARTIAL Care Teams Biofuels Processing Technician Relationship Specialty Start Date End Date Name, MD Chavo [address] [place] [address] PCP - General Internal Medicine 10/25/23 Gretchen Spears PharmD [address] [place], [place] [phone] Pharmacist Internal Medicine 11/25/23
--- OUTSIDE RECORDS SUMMARY | 2024-09-11 08:43 | XMS_ITS | Encounter Summary ---
Author Organization [employer] Address [address] [place] [address] [address] [place] [address] Care Team Providers Care Formula Maker Name Role Phone Name, Chavo MCMILLAN Primary Care Provider [phone] Gretchen Spears PharmD Unavailable [phone] Reason for Visit * Reason Onset Date Comments Med Refill 08/05/2024 Encounter Details Date Type Department Care Team (Late st Contact Info) Description 08/05/2024 Refill [facility] MED[facility] [address] [place], [place] [phone] Name, MD Chavo [address] [place] [address] Social History Tobacco Use Types Packs/Day Years [...] Telephone Encounter - Lidya Blake RN - 08/18/2024 3:56 PM EST TC placed via [employer] safe expert (ID#[id number] got disconnected). Second call placed with [employer] safe expert ([employer] ID#[id number]) per provider message, Sleep study on 08/10/24 showed YESSICA, she's aware of dx and hasold CPAP machine. She needs sleep titration that should be done by sleep specialist as she was referred there by PCP (and they were the ones who ordered the initial study, probably). Please call patient to make sure that she fu with sleep specialist for titration study. Pt verbalized understandingand reports she will call sleep specialist. Denies any further questions or concerns at this time. documented in this encounter Plan of Treatment [...] documented as of this encounter Care Teams Formula Maker Relationship Specialty Start Date End Date Name, MD Chavo [address] [place] [address] PCP - General Internal Medicine 10/25/23 Gretchen Spears PharmD [address] [place] [address] Pharmacist Internal Medicine 11/25/23 documented as of this encounter
--- OUTSIDE RECORDS SUMMARY | 2024-09-11 08:43 | XMS_ITS | Encounter Summary ---
Author Organization [employer] Address [address] [facility] [address] [place] [address] Care Team Providers Care Sprinkler Worker Name Role Phone Name, Chavo MCMILLAN Primary Care Provider Gretchen Spears PharmD Unavailable [phone] Reason for Visit * Reason Onset Date Comments Med Refill 08/05/2024 Encounter Details Date Type Department Care Team (Late st Contact Info) Description 08/05/2024 Refill [facility] [address] [place], [place] [phone] Katina Cabrera MD [address] [place] [address] Social History Tobacco Use Types Packs/Day Years [...] blood sugar as directed Result Component No PuiaKjGretchen, PharmD documented as of this encounter Visit Diagnoses Not on filedocumented in this encounter Additional Health Concerns Assessment Noted Time PHQ-9 Depression Total Score: 0 10/25/19 24 1:07 PM EDT documented as of this encounter Care Teams Sprinkler Worker Relationship Specialty Start Date End Date Name, MD Chavo [address] [place] [address] PCP - General Internal Medicine 10/25/23 Gretchen Spears, PharmD [address] [place] [address] Pharmacist Internal Medicine 11/25/23 documented as of this encounter
--- OUTSIDE RECORDS SUMMARY | 2024-09-11 08:43 | XMS_ITS | Encounter Summary ---
Author Organization [employer] Address [address] [place] [address] 7[address] [place] [address] Care Team Providers Care Assistant Product Manager Name Role Phone Name, Chavo MCMILLAN Primary Care Provider Gretchen Spears PharmD Unavailable [phone] Reason for Visit * Reason Comments Follow-up Encounter Details Date Type Department Care Team ([facility] st Contact Info) Description 09/06/2024 9:45 AM EST Office Visit [facility] [address] [place] [address] [phone] Name, MD Chvao [address] [place] [address] Type 2 diabetes mellitus without complication, without long-term current use of insulin ([facility]) (Primary Dx); Elevated blood pressure reading Social History Tobacco Use Types Packs/Day Years [...] PM EST documented as of this encounter Last Filed Vital Signs Vital Sign Reading [...] Mass Index 36.31 09/06/2024 9:49 AM EST documented in this encounter Progress Notes * Chavo Fairbanks MD - 09/06/2024 9:45 AM EST Subjective Patient ID: Darek Frias is a 53 y.o. female who presents for Follow-up. Patient comes for a follow-up visit. She is doing well. Her blood sugars are well-controlled on current dose of Trulicity and combination metformin SGLT2 inhibitor. She is tolerating GLP-1 well. She has noted decreased appetite and she is losing weight. Today her blood pressure was initially elevated but repeat blood pressure is normal. She was recently seen by urology because of problems with kidney stones. She denies any CV angle tenderness or hematuria. She is reminded to drink plenty of water. She also had a steroid injection for right shoulder pain last month with significant improvement ofjoint pain. She did not have significant hyperglycemia after the steroid injection. Review of Systems Constitutional: Negative for chills and fever. HENT: Negative for sore throat. Respiratory: Negative for cough, shortness of breath and wheezing. Cardiovascular: Negative for chest pain, palpitations and leg swelling. Gastrointestinal: Negative for abdominal pain. Genitourinary: Negative for dysuria and hematuria. Visit Vitals BP 121/82 Pulse 88 Temp 98.8 ??F (37.1 ??C) (Oral) Resp 22 Ht 5' 3 (1.6 m) Wt 205 lb (93 kg) SpO2 98% BMI 36.31 kg/m?? Smoking Status Never BSA 2.03 m?? Objective Physical Exam Constitutional: Appearance: Normal appearance. Cardiovascular: Rate and Rhythm: Normal rate and regular rhythm. Heart sounds: No murmur heard. No gallop. Pulmonary: Effort: Pulmonary effort is normal. No respiratory distress. Breath sounds: Normal breath sounds. No wheezing. Musculoskeletal: Right lower leg: No edema. Left lower leg: No edema. Neurological: Mental Status: She is alert. Lab Results Component Value Date HGBA1C 6.0 05/02/2024 HGBA1C 6.0 01/11/2024 HGBA1C 8.9 (A) 10/04/2023 Current Outpatient Medications on File Prior to Visit Medication Sig Dispense Refill acetaminophen (Tylenol) 325 MG tablet Take 2 tablets by mouth every 6 (six) hours if needed for mild pain. OTC atorvastatin (Lipitor) 20 MG tablet Take 1 tablet (20 mg) by mouth in the morning. 30 tablet 11 Blood Glucose Monitoring Suppl (FreeStyle Lite) w/Device kit 1 each in the morning. 1 kit 0 D3 Super Strength 50 MCG (1999 UT) capsule TAKE 1 CAPSULE BY MOUTH EVERY DAY IN THE MORNING dapagliflozin-metFORMIN ER (Xigduo XR) 5-1000 MG Take 2 tablets by mouth with breakfast. 60 tablet 11 glucose blood test strip Use as instructed 100 each 12 ibuprofen 200 MG tablet Take 2 tablets by mouth every 8 (eight) hours if needed for mild pain. OTC phenazopyridine (Pyridium) 100 MG tablet TAKE 1 TABLET BY MOUTH THREE TIMES DAILY NEEDED FOR SPASMS FOR 4 DAYS TRUEplus Lancets 33G misc USE DIRECTED TO TEST BLOOD SUGAR EVERY DAY IN THE MORNING [DISCONTINUED] Dulaglutide (Trulicity) 1.5 MG/0.5ML solution auto-injector Inject 0.5 mL (1.5 mg) under the skin 1 (one) time per week. 2 mL 2 No current facility-administered medications on file prior to visit. Assessment/Plan Diagnoses and all orders for this visit: Type 2 diabetes mellitus without complication, without long-term current use of insulin ([facility]) Comments: Continue current medications, avoid sweets and soda, check fasting blood work listed below and urine for microalbumin. Today repeat blood pressure is normal. Orders: - POCT Glucose - Comprehensive Metabolic Panel; Future - Lipid Panel, Standard; Future - Albumin, Random Urine W/Creatinine; Future Elevated blood pressure reading Other orders - Dulaglutide (Trulicity) 1.5 MG/0.5ML solution auto-injector; Inject 1.5 mg under the skin 1 (one)time per week. documented in this encounter Plan of Treatment Scheduled Orders Name Type Priority Associated Diagnoses Orde r Schedule Comprehensive Metabolic Panel Lab Routine Type 2 diabetes mellitus without complication, without long-term current use of insulin (CMS/HCC) Expected: 09/06/2024 (Approximate), Expires: 09/06/2025 Lipid Panel, Standard Lab Routine Type 2 diabetes mellitus without complication, without long-term current use of insulin (CMS/HCC) Expected: 09/06/2024 (Approximate), Expires: 09/06/2025 Albumin, Random Urine W/Creatinine Lab Routine Type 2 diabetes mellitus without complication, without long-term current use of insulin (CMS/HCC) Expected: 09/06/2024 (Approximate), Expires: 09/06/2025 documented as of this encounter Goals Goal [...] complication, without long-term current use of insulin ([facility]) documented in this encounter Results * POCT Glucose (09/06/2024 9:51 AM EST) Glucose Blood, POC 109 60 - 200 mg/dL QC Media Lot # [id number] Lot# Expiration Date Blood Capillary blood specimen / Unknown 09/06/2024 9:51 AM EST Chavo Name POINT OF CARE TEST ENTER/EDIT OR DERABLES Final Result documented in this encounter Visit Diagnoses Diagnosis Type 2 diabetes mellitus without complication, without long-term current use of insulin ([facility])- Primary Elevated blood pressure reading Elevated blood pressure reading without diagnosis of hypertension documented in this encounter Additional Health Concerns Assessment Noted Time PHQ-9 Depression Total Score: 0 10/25/19 24 1:07 PM EDT documented as of this encounter Care Teams Assistant Product Manager Relationship Specialty Start Date End Date Name, MD Chavo [address] [place] [address] PCP - General Internal Medicine 10/25/23 Gretchen Spears PharmD [address] [place] [address] Pharmacist Internal Medicine 11/25/23 documented as of this encounter
[2024-09-11 11:36] LABS: Creatinine Urine 215.17 mg/dL; Microalbum/Creatinine Ratio Ur 7.4 ug/mg cr (<30)
[2024-09-11 11:38] LABS: Alanine Aminotransferase 21 U/L (0-31); Albumin Level 3.9 g/dL (3.5-5.0); Alkaline Phosphatase 31 U/L (39-117); Anion Gap 12 (12-20); Aspartate Amino Transferase 28 U/L (5-31); Bilirubin Total 0.3 mg/dL (0.0-1.0); Blood Urea Nitrogen 17 mg/dL (9-16); Calcium 9.5 mg/dL (8.4-10.2); Carbon Dioxide 26 mmol/L (22-29); Chloride 105 mmol/L (96-108); Cholesterol 150 mg/dL (<200); Estimated Glomerular Filt Rate > 60; Glucose Random 105 mg/dL (60-115); HDL Cholesterol 34 mg/dL (>40); LDL Cholesterol Calculated 80 mg/dL (<100); Potassium 3.7 mmol/L (3.3-5.1); Sodium 139 mmol/L (135-145); Total Protein 8.4 g/dL (6.5-8.0); Triglycerides 180 mg/dL (<150)
== END 2024-09-11 08:31 | disposition home or self-care (01) ==
LOC: HO.HHCL 08:30
PROVIDERS: Visit Provider Internal Medicine Geriatric Medicine
DX: E11.9 Type 2 diabetes mellitus without complications (principal)
CPT/HCPCS: 36415; 80053; 80061; 82043; 82570

== ENCOUNTER 2024-09-25 12:50 | Outpatient (REF) | payer MEDICAID, SELFPAY ==
--- NOTE | ~2024-09-25 | XR_ITS ---
EXAMINATION: XR SHOULDER, LEFT CLINICAL INFORMATION: M25.512 - Pain in left shoulder COMPARISON: None available. TECHNIQUE: AP external rotation, Grashey, scapular Y, and axillary views of the left shoulder. FINDINGS: Degenerative changes in the glenoid fossa, acromioclavicular joint and greater tuberosity left humerus. No acute cortical disruption or malalignment. Probable bony island proximal metaphysis left humerus.. XR/XR shoulder LT min 2V IMPRESSION: Degenerative changes without acute fracture or dislocation. Electronically signed by: Madan Charles MD 09/26/2024 02:54 PM [facility]
--- OUTSIDE RECORDS SUMMARY | 2024-09-26 15:36 | XMS_ITS | Encounter Summary ---
Author Organization [employer] Address [address] [place] [address] 7[address] [place] [address] Care Team Providers Care Shank Cementer Hand Name Role Phone Name, Chavo MCMILLAN Primary Care Provider [phone] Gretchen Spears PharmD Unavailable [phone] Reason for Visit * Reason Comments Follow-up Encounter Details Date Type Department Care Team ([facility] st Contact Info) Description 09/06/2024 9:45 AM EST Office Visit [facility] [address] [place] [address] [phone] Name, MD Chavo [address] [place] [address] Type 2 diabetes mellitus without complication, without long-term current use of insulin ([facility]) (Primary Dx); Elevated blood pressure reading Social [...] complication, without long-term current use of insulin (CMS/[facility]) Comments: Continue current medications, avoid sweets and [...] complication, without long-term current use of insulin (CMS/[facility]) LIPID PANEL, STANDARD Routine 09/11/2024 8:31 AM EST Type 2 diabetes mellitus without complication, without long-term current use of insulin (CMS/[facility]) COMPREHENSIVE METABOLIC PANEL Routine 09/11/2024 8:31 AM EST Type 2 diabetes mellitus without complication, without long-term current use of insulin (CMS/[facility]) POCT GLUCOSE Routine 09/06/2024 9:51 AM EST Type 2 diabetes mellitus without complication, without long-term current use of insulin ([facility]) documented in this encounter Results * Albumin, Random Urine W/Creatinine (09/11/2024 8:31 AM EST) Creatinine, Urine 215.17 mg/dL [facility] Microalbumin Urine 16.0 mg/L [facility] Microalbum Creatinine Ratio Ur 7.4 <30 ug/mg cr [facility] Comment:Albumin/Creatinine R atio Reference Ranges: Normal: < 30 ug/mg creatinine Microalbuminuria: 30 - 300 ug/mg creatinineClinical Albuminuria: > 300 ug/mg creatinine Urine (Urine, Random) 09/11/2024 8:31 AM EST 09/11/2024 11:02 AM EST us Chavo Name LAB URINE ORDERABLES Final Resul t Performing Organization Address City/State/[facility] Co de Phone Number [facility] [address] [place] [phone] * (ABNORMAL) Lipid Panel, Standard (09/11/2024 8:31 AM EST) Triglycerides 180(H) <150 mg/dL [facility] Comment:Desirable Triglyceri de: less than 150 mg/dLBorderline High Triglyceride 150-199 mg/dLHigh Triglyceride: 200-499 mg/dLVery High Triglyceride: greater than or equal to 5OO mg/dL Cholesterol 150 <200 mg/dL [facility] Comment:Desirable Cholestero l: less than 200 mg/dLBorderline High Cholesterol: 200-239 mg/dLHigh Cholesterol: greater than 239 mg/dL LDL Cholesterol Calculated 80 <100 mg/dL [facility] Comment:Desirable LDL: less than 100 mg/dLNear Optimal/Above Optimal LDL: 110- 129 mg/dLBorderline High LDL: 130-159 mg/dLHigh LDL: 160-189 mg/dLVery High LDL: greater than or equal to 190 mg/dL HDL Cholesterol 34(L) >40 mg/dL [facility] Comment:Desirable HDL: great er than 40 mg/dL Note: This HDL assay may give artificially low results in patients with liver disease. Blood Venous blood specimen / Unknown 09/11/2024 8:31 AM EST 09/11/2024 11:06 AM EST us Chavo Name MD LAB BLOOD ORDERABLES Final Resul t [facility] [address] [place], [place] [phone] * (ABNORMAL) Comprehensive Metabolic Panel (09/11/2024 8:31 AM EST) Sodium 139 135 - 145 mmol/L [facility] Potassium 3.7 3.3 - 5.1 mmol/L [facility] Chloride 105 96 - 108 mmol/L [facility] Carbon Dioxide 26 22 - 29 mmol/L [facility] Anion Gap 12 12 - 20 [facility] Urea Nitrogen (BUN) 17(H) 9 - 16 mg/dL [facility] Creatinine, Serum 0.58 0.5 - 1.4 mg/dL [facility] Estimated Glomerular Filt Rate >60 [facility] Comment:Chronic Kidney Disea se: Estimated GFR < 60 mL/min/[id number] Kidney Disease: Estimated GFR < 15 mL/min/1.73m2 Glucose 105 60 - 115 mg/dL [facility] Calcium 9.5 8.4 - 10.2 mg/dL [facility] Bilirubin, Total 0.3 0.0 - 1.0 mg/dL [facility] Aspartate Amino Transferase 28 5 - 31 U/L [facility] Alanine Aminotransferase 21 0 - 31 U/L [facility] Total Protein 8.4(H) 6.5 - 8.0 g/dL [facility] Albumin Level 3.9 3.5 - 5.0 g/dL [facility] Alkaline Phosphatase 31(L) 39 - 117 U/L [facility] Blood Venous blood specimen / Unknown 09/11/2024 8:31 AM EST 09/11/2024 11:06 AM EST us Chavo Fairbanks MD LAB BLOOD ORDERABLES Final Resul t [facility] [address] [place] [phone] [phone] * POCT Glucose (09/06/2024 9:51 AM [...] complication, without long-term current use of insulin ([facility])- Primary Elevated blood pressure reading Elevated blood pressure reading without diagnosis of hypertension documented in this encounter Additional Health Concerns Assessment Noted Time PHQ-9 Depression Total Score: 0 10/25/19 24 1:07 PM EDT documented as of this encounter Care Teams Shank Cementer Hand Relationship Specialty Start Date End Date Name, MD Chavo [address] [place] [address] PCP - General Internal Medicine 10/25/23 Gretchen Spears PharmD [address] [place] [address] Pharmacist Internal Medicine 11/25/23 documented as of this encounter
--- OUTSIDE RECORDS SUMMARY | 2024-09-26 15:36 | XMS_ITS | Clinical Summary ---
Author Organization [employer] Address [address] [place] [address] 7t [place] [address] Care Team Providers Care Cut Off Sawyer Name Role Phone Name, Chavo MCMILLAN Primary Care Provider [phone] Gretchen Spears PharmD Unavailable [phone] Allergies No known active allergies Medications Blood [...] 2 diabetes mellitus without complication, unspecified whether snf insulin use ([facility]) Take 2 tablets by mouth [...] to fu with new PCP in 4-6w environmental monitoring specialist visit. Order labs Counseled re more frequent [...] Description 09/06/2024 9:45 AM EST Office Visit [facility] [address] [place] [phone] Chavo Fairbanks MD Type 2 diabetes mellitus without complication, without long-term current use of insulin ([facility]) (Primary Dx); Elevated blood pressure reading 08/22/2024 Telephone [facility] [address] [place] [phone] Lidya Blake RN 08/05/2024 Refill [facility] [address] [place] [phone] Chavo Fairbanks MD 08/05/2024 Refill [facility] [address] [place] [address] [phone] Katina Cabrera MD 08/05/2024 Refill [facility] [address] [place] [phone] Chavo Fairbanks MD 07/11/2024 Orders Only [facility] External Provider, [facility] 07/07/2024 9:30 AM EST Office Visit [facility] [address] [place] [phone] Chavo Fairbanks MD Renal stone (Primary Dx); Type 2 diabetes mellitus without complication, unspecified whether superintendent container terminal insulin use ([facility]); Hyperglycemia; Healthcare maintenance; Screening for colon cancer; Tinea corporis 07/06/2024 Telephone [facility] [address] [place] [phone] Brittney Medrano MA Chart Prep 07/06/2024 Telephone [facility] [address] [place] [address] [phone] Brittney Medrano MA from Last 3 Months [...] 2 diabetes mellitus without complication, unspecified whether snf insulin use (CMS/HCC) BI MAMMOGRAM DIAGNOSTIC TOMOSYNTHESIS BILATERAL Routine 03/06/2024 2:06 PM EDT Painful lumpy right breast HEPATITIS PANEL, GENERAL Routine 10/08/2023 9:30 AM EST Dizziness from Last 3 Months or Most Recently Relevant to Health Maintenance Results * Albumin, Random Urine W/Creatinine (09/11/2024 8:31 AM EST) Creatinine, Urine 215.17 mg/dL [facility] Microalbumin Urine 16.0 mg/L [facility] Microalbum Creatinine Ratio Ur 7.4 <30 ug/mg cr [facility] Comment:Albumin/Creatinine R atio Reference Ranges: Normal: < 30 ug/mg creatinine Microalbuminuria: 30 - 300 ug/mg creatinineClinical Albuminuria: > 300 ug/mg creatinine Urine (Urine, Random) 09/11/2024 8:31 AM EST 09/11/2024 11:02 AM EST us Chavo Name MD LAB URINE ORDERABLES Final Resul t [facility] [address] [place] [phone] * (ABNORMAL) Lipid Panel, Standard (09/11/2024 8:31 AM EST) Triglycerides 180(H) <150 mg/dL [facility] Comment:Desirable Triglyceri de: less than 150 mg/dLBorderline High Triglyceride 150-199 mg/dLHigh Triglyceride: 200-499 mg/dLVery High Triglyceride: greater than or equal to 5OO mg/dL Cholesterol 150 <200 mg/dL [facility] Comment:Desirable Cholestero l: less than 200 mg/dLBorderline High Cholesterol: 200-239 mg/dLHigh Cholesterol: greater than 239 mg/dL LDL Cholesterol Calculated 80 <100 mg/dL [facility] Comment:Desirable LDL: less than 100 mg/dLNear Optimal/Above Optimal LDL: 110- 129 mg/dLBorderline High LDL: 130-159 mg/dLHigh LDL: 160-189 mg/dLVery High LDL: greater than or equal to 190 mg/dL HDL Cholesterol 34(L) >40 mg/dL [facility] Comment:Desirable HDL: great er than 40 mg/dL Note: This HDL assay may give artificially low results in patients with liver disease. Blood Venous blood specimen / Unknown 09/11/2024 8:31 AM EST 09/11/2024 11:06 AM EST us Chavo Name MD LAB BLOOD ORDERABLES Final Resul t [facility] [address] [place] [phone] [phone] * (ABNORMAL) Comprehensive Metabolic Panel (09/11/2024 8:31 AM EST) Sodium 139 135 - 145 mmol/L [facility] Potassium 3.7 3.3 - 5.1 mmol/L [facility] Chloride 105 96 - 108 mmol/L [facility] Carbon Dioxide 26 22 - 29 mmol/L [facility] Anion Gap 12 12 - 20 [facility] Urea Nitrogen (BUN) 17(H) 9 - 16 mg/dL [facility] Creatinine, Serum 0.58 0.5 - 1.4 mg/dL [facility] Estimated Glomerular Filt Rate >60 [facility] Comment:Chronic Kidney Disea se: Estimated GFR < 60 mL/min/1.03y0Opslbd Kidney Disease: Estimated GFR < 15 mL/min/1.73m2 Glucose 105 60 - 115 mg/dL [facility] Calcium 9.5 8.4 - 10.2 mg/dL [facility] Bilirubin, Total 0.3 0.0 - 1.0 mg/dL [facility] Aspartate Amino Transferase 28 5 - 31 U/L [facility] Alanine Aminotransferase 21 0 - 31 U/L [facility] Total Protein 8.4(H) 6.5 - 8.0 g/dL [facility] Albumin Level 3.9 3.5 - 5.0 g/dL [facility] Alkaline Phosphatase 31(L) 39 - 117 U/L [facility] Blood Venous blood specimen / Unknown 09/11/2024 8:31 AM EST 09/11/2024 11:06 AM EST us Chavo Fairbanks MD LAB BLOOD ORDERABLES Final Resul t [facility] [address] [place] [phone] [phone] * POCT Glucose (09/06/2024 9:51 AM [...] EST Narrative 08/21/2024 1:32 PM EST ? [facility] ?[address] ?[place] [address] ? Ultrasound Report ? Signed ? Patient: Tahir Frias,Cassidyaida ?MR#: ?? [id number] ? : 1970 ?Acct:[id number] ? Age/Sex: 53 / F ?ADM Date: 12/10/24 ? Loc: HO.US ? Attending Dr: Isa Salamanca GRAIN FARMWORKER-BC ? Ordering Physician: Isa Salamanca GRAIN FARMWORKER-BC ?? Date of Service: 07/11/24 ?? Procedure(s): US renal BI ?? Accession Number(s): [id number] ? cc: Isa Salamanca GRAIN FARMWORKER-BC; Name,Chavo MCMILLAN ? EXAMINATION: ?? US RETROPERITONEAL [...] DD/ 1113 ? TD/TT: 07/11/24 1120 ? [employer]: ? Procedure Note Norma, Image - 08/21/2024 [place] [address] Ultrasound Report Signed Patient: Chanel AkhtarR#: [id number] : 1970Acct:[id number] Age/Sex: 53 / FADM Date: 07/11/24 Loc: HO.US Attending Dr: Isa NEGRO Ordering Physician: Isa Salamanca Date of Service: 07/11/24 Procedure(s): US renal BI Accession Number(s): [id number] cc: Isa Salamanca; Name,Chavo MCMILLAN EXAMINATION: US [...] by: Jaylene Amador MD 08/21/2024 01:29 PM [facility] Dictated By: Jaylene Amador MD Signed By: <Electronically signed by Jaylene Amador MD in OV> 08/21/24 1329 DD/ 1113 TD/TT: 07/11/24 1120 [employer]: [facility] External Provider IMG US PROCEDURES Final Result * POCT HGB A1C (05/02/2024 9:22 AM EDT) Hemoglobin A1C 6.0 4.0 - 6.0 % QC Media Lot # [id number] Lot# Expiration Date 348 Blood 05/02/2024 9:22 AM EDT Chavo Fairbanks MD POINT OF CARE TEST ENTER/EDIT OR DERABLES Final Result * BI Mammogram Diagnostic Tomosynthesis Bilateral (03/06/2024 2:06 PM EDT) Anatomical Region Laterality Modality Breast Bilateral Mammography 03/06/2024 2:06 PM EDT Narrative 03/06/2024 2:57 PM EDT ? [facility] ? [address] ?[place] [address] ? Mammography Report ? Signed ? Patient: Giovana,Lizaida ?MR#: ?? [id number] ? : 1970 ?Acct:[id number] ? Age/Sex: 53 / F ?ADM Date: 03/06/24 ? Loc: HO.MAMMO ? Attending Dr: Chavo Fairbanks MD ? Ordering Physician: Chavo Fairbanks MD ?Results: 1Negative ? Date of Service: 03/06/24 ?Follow Up: 1 Year From Orig ?? inal Mammogram ? Procedure(s): MM tomosynthesis diagnostic BI ?? Accession Number(s): [id number] ? cc: Chavo Fairbanks MD ? EXAMINATION: [...] and right breast ultrasound 10/02/2021 from ?? [facility]. ? TECHNIQUE: ?? Digital breast tomosynthesis is [...] 1453 ? DD/ 1406 ? TD/TT: ? [employer]: ? Procedure Note Donotuseinterpreter, Image - 03/06/2024 [place] [facility] [address] [place] [address] Mammography Report Signed Patient: Chanel AkhtarR#: [id number] : 1970Acct:[id number] Age/Sex: 53 / FADM Date: 03/06/24 Loc: HO.MAMMO Attending Dr: Chavo Fairbanks MD Ordering Physician: Chavo Fairbanks MDResults: 1Negative Date of Service: 03/06/24Follow Up: 1 Year From Orig inal Mammogram Procedure(s): MM tomosynthesis diagnostic BI Accession Number(s): [id number] cc: Chavo Fairbanks MD EXAMINATION: MM DIAGNOSTIC DIGITAL BREAST TOMOSYNTHESIS, BILATERAL US BREAST LIMITED, RIGHT MAMMOGRAPHY: CLINICAL INFORMATION: 53-year-old female complaining of right breast pain/palpable focus approximate 11:00 axis, anterior one third. As per technologist note, history of breast cancer in sister at age 48. COMPARISON: Bilateral Mammography and right breast ultrasound 10/02/2021 from [facility]. TECHNIQUE: Digital breast tomosynthesis is performed in [...] in OV> 03/06/24 1453 DD/ 1406 TD/TT: [employer]: us Chavo Name IMG BI PROCEDURES Final Result * Hepatitis Panel, General (10/08/2023 9:30 AM EST) Hepatitis A IgM Nonreactive Nonreactive [facility] Comment:IgM antibodies to MASSEY V not detected; does not exclude earlyacute or recovered HAV infection. ~Hepatitis B Surface Antibody NONREACTIVE Nonreactive [facility] Comment:Nonreactive: < 8.00 mIU/mL Hepatitis B Core Antibody Nonreactive Nonreactive [facility] Hepatitis C Antibody Nonreactive Nonreactive [facility] Comment:Antibodies to HCV no t detected; does not exclude early acuteHCV infection. Hepatitis B Surface Ag Negative Negative [facility] Blood 10/08/2023 9:30 AM EST 10/08/2023 11:29 AM EST Katina Cabrera MD LAB BLOOD ORDERABLES Fin al Result [facility] [address] [place] [address] [phone] from Last 3 Months or Most Recently Relevant to Health Maintenance Insurance [facility] C3 HSN PARTIAL Care Teams Cut Off Sawyer Relationship Specialty Start Date End Date Name, MD Chavo [address] [place] [phone] PCP - General Internal Medicine 10/25/23 Gretchen Spears PharmD [address] [place] [address] [phone] Pharmacist Internal Medicine 11/25/23
--- OUTSIDE RECORDS SUMMARY | 2024-09-26 15:36 | XMS_ITS | Encounter Summary ---
Author Organization [employer] Address [address] [facility] 7t [place] [address] Care Team Providers Care Healthcare Technician Name Role Phone Name, Chavo MCMILLAN Primary Care Provider [phone] Gretchen Spears PharmD Unavailable [phone] Reason for Visit * Reason Onset Date Comments Med Refill 08/05/2024 Encounter Details Date Type Department Care Team (Late st Contact Info) Description 08/05/2024 Refill [facility] [address] [place], [place] [phone] Katina Cabrera MD [address] [place] [address] Social History Tobacco Use Types Packs/Day Years [...] documented as of this encounter Care Teams Healthcare Technician Relationship Specialty Start Date End Date Name, MD Chavo [address] [place] [address] PCP - General Internal Medicine 10/25/23 Gretchen Spears, PharmD [address] [place] [address] Pharmacist Internal Medicine 11/25/23 documented as of this encounter
--- OUTSIDE RECORDS SUMMARY | 2024-09-26 15:36 | XMS_ITS | Encounter Summary ---
Author Organization [employer] Address [address] [place] [address] 7t [place] [address] Care Team Providers Care Pheresis Nurse Name Role Phone Name, Chavo MCMILLAN Primary Care Provider [phone] Gretchen Spears PharmD Unavailable [phone] Reason for Visit * Reason Onset Date Comments Med Refill 08/05/2024 Encounter Details Date Type Department Care Team (Late st Contact Info) Description 08/05/2024 Refill [facility] [address] [place], [place] [phone] Name, MD Chavo [address] [place] [address] Social History Tobacco Use Types Packs/Day Years [...] documented as of this encounter Care Teams Pheresis Nurse Relationship Specialty Start Date End Date Name, MD Chavo [address] [place] [address] PCP - General Internal Medicine 10/25/23 Gretchen Spears, PharmD [address] [place] [address] Pharmacist Internal Medicine 11/25/23 documented as of this encounter
--- OUTSIDE RECORDS SUMMARY | 2024-09-26 15:36 | XMS_ITS | Encounter Summary ---
Author Organization [employer] Address [address] [place] [address] 7t [place] [address] Care Team Providers Care Occupational Safety Specialist Name Role Phone Name, Chavo MCMILLAN Primary Care Provider [phone] Gretchen Spears PharmD Unavailable [phone] Reason for Visit * Reason Onset Date Comments Med Refill 06/19/2024 Encounter Details Date Type Department Care Team (Late st Contact Info) Description 06/19/2024 Refill [facility] [address] [place], [place] [phone] Name, MD Chavo [address] [place] [address] Type 2 diabetes mellitus without complication, unspecified whether oysterman insulin use ([facility]) Social History Tobacco Use Types Packs/Day Years [...] 2 diabetes mellitus without complication, unspecified whether oysterman insulin use ([facility]) documented in this encounter Additional Health Concerns Assessment Noted Time PHQ-9 Depression Total Score: 0 10/25/19 24 1:07 PM EDT documented as of this encounter Care Teams Occupational Safety Specialist Relationship Specialty Start Date End Date Name, MD Chavo [address] [place] [address] PCP - General Internal Medicine 10/25/23 Gretchen Spears PharmD [address] [place] [address] Pharmacist Internal Medicine 11/25/23 documented as of this encounter
== END 2024-09-25 12:51 | disposition home or self-care (01) ==
LOC: HO.HOSX 12:50
PROVIDERS: Visit Provider Physician Assistant
DX: M25.512 Pain in left shoulder (principal); M75.22 Bicipital tendinitis, left shoulder; M19.012 Primary osteoarthritis, left shoulder
CPT/HCPCS: 20610; 73030; 99212; J1010; J2003

== ENCOUNTER 2024-09-25 14:01 | Outpatient (AMB) | payer MEDICAID, SELFPAY ==
--- NOTE | 2024-09-25 14:20 | A.OFFVIS_ITS ---
Intake Visit Reasons: newprob-pain in the left shoulder Intake Note: Darek is a 53 year old female who presents today for an evaluation of left shoulder pain. Hx of right shoulder injection, last injection on 08/21/24 which provided her with little relief. Patient reports left shoulder pain has been present for a while. Denies injury. She has constant pain that radiates up her neck and down her arm. States her pain is worse at night. Limited ROM, making it difficult to perform AODL. No numbness or tingling. No previous tx. Beveler Services: Beveler Offered & Declined Allergies No Known Allergies Allergy (Verified 09/25/24 14:20) Medication List - Last Reconciled 09/25/24 by Ingris Paulino PA-C atorvastatin 20 mg PO DAILY cholecalciferol (vitamin D3) (Vitamin D3) 50 mcg PO QAM cyclobenzaprine 10 mg PO TID PRN dapaglifloz propaned-metformin 5-1,000 mg ER (Xigduo XR) 2 tabs PO DAILY dulaglutide (Trulicity) 0.75 mg subcut ORO HPI HPI newprob-pain in the left shoulder: Details: 53-year-old female presents to the office today for left shoulder pain. She denies injury. States the pain is located along the anterior portion of the shoulder which extends up into her neck. She has discomfort with lifting reaching exercises. She has some weakness with extending the arm and carrying objects. She has had an injection in her right shoulder with relief. She has not attempted physical therapy as of yet. [facility] Medical History YESSICA on CPAP Type 2 diabetes mellitus without complications HLD (hyperlipidemia) Surgical History Previous section Social History (Updated 09/25/24 @ 14:21 by LISA Peralta) Household Members: Children Household Members Other:: daughter in her 30s Housing: House Do you presently have visiting nurse or other home services: No Alcohol intake: never Patient Tobacco Use Status: Never used Tobacco Current occupational status: unemployed Current occupation: right hand dominant Review of Systems Const All systems reviewed & are unremarkable except as noted in HPI and below Physical Exam Extrem Other: Left shoulder normal to inspection. She does have some protraction of the scapula and tenderness over the proximal biceps. She has a positive Ceiba's. Positive cross-body abduction. Tenderness over the AC joint. She has intact rotator cuff strength however she does have some discomfort with activation. Neurovascularly intact. Office Procedures AMB Joint Injection/Aspiration Joint Injection/Aspiration Primary Site: left shoulder Prep: site was prepped using aseptic technique, ethochloride spray was applied and injection warnings given Injected: 40 mg of, with 8 mL of, 1% plain lidocaine and in the subcromial space Approach Used: posterolateral Procedure: The patient tolerated the procedure well and there was some relief with the local anesthesia Coding - Glenohumeral/Tronchanteric Bursa/Intraarticular Procedure code (CPT) selection complete Results Reviewed Results Reviewed: X-rays of the left shoulder obtained in the office today and reviewed by me show AC joint OA Assessment & Plan Assessment & Plan (1) Bicipital tendinitis, left shoulder: Code(s): M75.22 - Bicipital tendinitis, left shoulder Category: Medical Plan We discussed options today which include physical therapy for rotator cuff and periscapular stabilization. Order was placed today. We also discussed benefits of a steroid injection in the left shoulder which she agreed to today. Left shoulder injected with out complications. We also discussed their diabetes and the effect the steroid can have on thier blood glucose levels; therefore, they will continue to monitor these very closely over the next 72 hours. If her left shoulder symptoms persist or worsen over the next 6-8 weeks she will contact our office otherwise follow up as needed. Orders: Orders XR shoulder LT min 2V Today M25.512 - Pain in left shoulder PT Evaluation and Treatment Today M75.22 - Bicipital tendinitis, left shoulder Coding Level of Care Code Est Pt Level 3 (28655) Complex EM visit Add On G2211 Diagnoses Bicipital tendinitis, left shoulder M75.22 CPT Codes Coding - Joint 7: 82988 - Glenohumeral/Tronchanteric Bursa/Intraarticular ([id number])
--- OUTSIDE RECORDS SUMMARY | 2024-09-25 16:04 | XMS_ITS | Encounter Summary ---
Author Organization [employer] Address [address] [facility] [address] [place] [address] Care Team Providers Care Tin Pot Operator Name Role Phone Name, Chavo MCMILLAN Primary Care Provider [phone] Gretchen Spears PharmD Unavailable [phone] Reason for Visit * Reason Onset Date Comments Med Refill 08/05/2024 Encounter Details Date Type Department Care Team (Late st Contact Info) Description 08/05/2024 Refill [facility] [address] [place], [place] [phone] Katina Cabrera MD [address] [place] [address] Social History Tobacco Use Types Packs/Day Years [...] documented as of this encounter Care Teams Tin Pot Operator Relationship Specialty Start Date End Date Name, MD Chavo [address] [place] [address] PCP - General Internal Medicine 10/25/23 Gretchen Spears, PharmD [address] [place] [address] Pharmacist Internal Medicine 11/25/23 documented as of this encounter
--- OUTSIDE RECORDS SUMMARY | 2024-09-25 16:04 | XMS_ITS | Encounter Summary ---
Author Organization [employer] Address [address] [place] [address] [address] [place] [address] Care Team Providers Care Assistant Press Operator Name Role Phone Name, Chavo MCMILLAN Primary Care Provider [phone] Gretchen Spears PharmD Unavailable [phone] Reason for Visit * Reason Onset Date Comments Med Refill 08/05/2024 Encounter Details Date Type Department Care Team (Late st Contact Info) Description 08/05/2024 Refill [facility] [address] [place], [place] [phone] Name, MD Chavo [address] [place] [address] Social History Tobacco Use Types Packs/Day Years [...] as of this encounter Care Teams Assistant Press Operator Relationship Specialty Start Date End Date Name, MD Chavo [address] [place] [address] PCP - General Internal Medicine 10/25/23 Gretchen Spears, PharmD [address] [place] [address] Pharmacist Internal Medicine 11/25/23 documented as of this encounter
--- OUTSIDE RECORDS SUMMARY | 2024-09-25 16:04 | XMS_ITS | Clinical Summary ---
Author Organization [employer] Address [address] [place] [address] 7t [place] [address] Care Team Providers Care Body Engineer Name Role Phone Name, Chavo MCMILLAN Primary Care Provider [phone] Gretchen Spears PharmD Unavailable [phone] Allergies No known active allergies Medications Blood [...] 2 diabetes mellitus without complication, unspecified whether fci insulin use ([facility]) Take 2 tablets by mouth with breakfast. 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 Order labs Counseled re more frequent [...] Description 09/06/2024 9:45 AM EST Office Visit [facility] [address] [place] [phone] Chavo Fairbanks MD Type 2 diabetes mellitus without complication, without long-term current use of insulin ([facility]) (Primary Dx); Elevated blood pressure reading 08/22/2024 Telephone [facility] [address] [place] [address] [phone] Lidya Blake RN 08/05/2024 Refill [facility] [address] [place] [phone] Chavo Fairbanks MD 08/05/2024 Refill [facility] [address] [place] [phone] Katina Cabrera MD 08/05/2024 Refill [facility] [address] [place] [phone] Chavo Fairbanks MD 07/11/2024 Orders Only [facility] External Provider, [facility] 07/07/2024 9:30 AM EST Office Visit [facility] [address] [place] [phone] Chavo Fairbanks MD Renal stone (Primary Dx); Type 2 diabetes mellitus without complication, unspecified whether exterminator insulin use ([facility]); Hyperglycemia; Healthcare maintenance; Screening for colon cancer; Tinea corporis 07/06/2024 Telephone [facility] [address] [place] [address] [phone] Brittney Medrano MA Chart Prep 07/06/2024 Telephone [facility] [address] [place] [address] [phone] Brittney Medrano MA from Last 3 Months Immunizations Name Administration [...] CpG 2-dose series) 02/08/2024 01/11/2024 COVID-19 Vaccine (1 - season) 2024 Zoster Vaccines (2 of 2) 07/13/2024 05/18/2024 Diabetes: Hemoglobin A1C 08/02/2024 024, 01/11/2024, 10/04/2023 SDOH Screening 10/17/2024 10/18/2023 Depression Screening 10/24/2024 10/25/2023, 10/25/19 24 Alcohol/Substance Use Screening 01/17/2025 01/18/2024 Tobacco Screening 09/06/2025 09/06/2024 Diabetes: Urine Protein Screening 09/11/2025 09/11/2024, 10/08/2023 Lipid Panel 09/11/2025 09/11/2024, 12/31, 10/08/2023 Mammogram 03/06/2026 03/06/2024, 08/0 12/2023, 10/02/2021, Additional [...] 6(05/02/2024 9:22 AM EDT) No Gretchen Spears, PharmErnesto Record your blood sugar as directed Result Component No Gretchen Spears, PharmErnesto Procedures Procedure Name Priority Date/Time Associated Diagnosis Comments ALBUMIN, RANDOM URINE W/CREATININE Routine 09/11/2024 8:31 AM EST Type 2 diabetes mellitus without complication, without long-term current use of insulin (CMS/HCC) LIPID PANEL, STANDARD Routine 09/11/2024 8:31 AM EST Type 2 diabetes mellitus without complication, without long-term current use of insulin (CMS/HCC) COMPREHENSIVE METABOLIC PANEL Routine 09/11/2024 8:31 AM EST Type 2 diabetes mellitus without complication, without long-term current use of insulin (CMS/HCC) POCT GLUCOSE Routine 09/06/2024 9:51 AM EST Type 2 diabetes mellitus without complication, without long-term current use of insulin (CMS/HCC) US RENAL BI Routine 07/11/2024 11:13 AM EST POCT GLYCATED HEMOGLOBIN, TOTAL Routine 05/02/2024 9:22 AM EDT Type 2 diabetes mellitus without complication, unspecified whether fci insulin use (CMS/HCC) BI MAMMOGRAM DIAGNOSTIC TOMOSYNTHESIS BILATERAL Routine 03/06/2024 2:06 PM EDT Painful lumpy right breast HEPATITIS PANEL, GENERAL Routine 10/08/2023 9:30 AM EST Dizziness from Last 3 Months or Most Recently Relevant to Health Maintenance Results * Albumin, Random Urine W/Creatinine (09/11/2024 8:31 AM EST) Creatinine, Urine 215.17 mg/dL [facility] Microalbumin Urine 16.0 mg/L [facility] Microalbum Creatinine Ratio Ur 7.4 <30 ug/mg cr [facility] Comment:Albumin/Creatinine R atio Reference Ranges: Normal: < 30 ug/mg creatinine Microalbuminuria: 30 - 300 ug/mg creatinineClinical Albuminuria: > 300 ug/mg creatinine Urine (Urine, Random) 09/11/2024 8:31 AM EST 09/11/2024 11:02 AM EST us Chavo Name MD LAB URINE ORDERABLES Final Resul t [facility] [address] [place] [phone] * (ABNORMAL) Lipid Panel, Standard (09/11/2024 8:31 AM EST) Triglycerides 180(H) <150 mg/dL [facility] Comment:Desirable Triglyceri de: less than 150 mg/dLBorderline High Triglyceride 150-199 mg/dLHigh Triglyceride: 200-499 mg/dLVery High Triglyceride: greater than or equal to 5OO mg/dL Cholesterol 150 <200 mg/dL [facility] Comment:Desirable Cholestero l: less than 200 mg/dLBorderline High Cholesterol: 200-239 mg/dLHigh Cholesterol: greater than 239 mg/dL LDL Cholesterol Calculated 80 <100 mg/dL [facility] Comment:Desirable LDL: less than 100 mg/dLNear Optimal/Above Optimal LDL: 110- 129 mg/dLBorderline High LDL: 130-159 mg/dLHigh LDL: 160-189 mg/dLVery High LDL: greater than or equal to 190 mg/dL HDL Cholesterol 34(L) >40 mg/dL [facility] Comment:Desirable HDL: great er than 40 mg/dL Note: This HDL assay may give artificially low results in patients with liver disease. Blood Venous blood specimen / Unknown 09/11/2024 8:31 AM EST 09/11/2024 11:06 AM EST us Chavo Name MD LAB BLOOD ORDERABLES Final Resul t [facility] [address] [place] [address] [phone] * (ABNORMAL) Comprehensive Metabolic Panel (09/11/2024 8:31 AM EST) Sodium 139 135 - 145 mmol/L [facility] Potassium 3.7 3.3 - 5.1 mmol/L [facility] Chloride 105 96 - 108 mmol/L [facility] Carbon Dioxide 26 22 - 29 mmol/L [facility] Anion Gap 12 12 - 20 [facility] Urea Nitrogen (BUN) 17(H) 9 - 16 mg/dL [facility] Creatinine, Serum 0.58 0.5 - 1.4 mg/dL [facility] Estimated Glomerular Filt Rate >60 [facility] Comment:Chronic Kidney Disea se: Estimated GFR < 60 mL/min/[id number] Kidney Disease: Estimated GFR < 15 mL/min/1.73m2 Glucose 105 60 - 115 mg/dL [facility] Calcium 9.5 8.4 - 10.2 mg/dL [facility] Bilirubin, Total 0.3 0.0 - 1.0 mg/dL [facility] Aspartate Amino Transferase 28 5 - 31 U/L [facility] Alanine Aminotransferase 21 0 - 31 U/L [facility] Total Protein 8.4(H) 6.5 - 8.0 g/dL [facility] Albumin Level 3.9 3.5 - 5.0 g/dL [facility] Alkaline Phosphatase 31(L) 39 - 117 U/L [facility] Blood Venous blood specimen / Unknown 09/11/2024 8:31 AM EST 09/11/2024 11:06 AM EST us Chavo Fairbanks MD LAB BLOOD ORDERABLES Final Resul t [facility] [address] [facility] [place] [address] [phone] * POCT Glucose (09/06/2024 9:51 AM EST) Glucose Blood, POC 109 60 - 200 mg/dL QC Media Lot # [id number] Lot# Expiration Date 53,025 Blood Capillary blood specimen / Unknown 09/06/2024 9:51 AM EST us Chavo Fairbanks MD POINT OF CARE TEST ENTER/EDIT OR DERABLES Final Result * US RENAL BI (07/11/2024 11:13 AM EST) Anatomical Region Laterality Modality Abdomen Ultrasound 07/11/2024 11:1 3 AM EST Narrative 08/21/2024 1:32 PM EST ? [facility] ?[address] ?[place] [address] ? Ultrasound Report ? Signed ? Patient: Tahir Frias,Cassidyaida ?MR#: ?? [id number] ? : 1970 ?Acct:[id number] ? Age/Sex: 53 / F ?ADM Date: 12/10/24 ? Loc: HO.US ? Attending Dr: Isa Salamanca [employer]CH[employer]-BC ? Ordering Physician: Isa Salamanca [employer] ?? Date of Service: 07/11/24 ?? Procedure(s): US renal BI ?? Accession Number(s): [id number] ? cc: Isa Salamanca [employer]-BC; Name,Chavo MCMILLAN ? EXAMINATION: ?? US RETROPERITONEAL [...] DD/ 1113 ? TD/TT: 07/11/24 1120 ? Display Department Manager: ? Procedure Note Norma, Image - 08/21/2024 [place] [address] Ultrasound Report Signed Patient: Chanel AkhtarR#: [id number] : 1970Acct:[id number] Age/Sex: 53 / FADM Date: 07/11/24 Loc: HO.US Attending Dr: Isa NEGRO Ordering Physician: Isa Salamanca Date of Service: 07/11/24 Procedure(s): US renal BI Accession Number(s): [id number] cc: Isa Salamanca; Name,Chavo MCMILLAN EXAMINATION: US [...] by: Jaylene Amador MD 08/21/2024 01:29 PM [facility] Dictated By: Jaylene Amador MD Signed By: <Electronically signed by Jaylene Amador MD in OV> 08/21/24 1329 DD/ 1113 TD/TT: 07/11/24 1120 Display Department Manager: [facility] External Provider IMG US PROCEDURES Final Result * POCT HGB A1C (05/02/2024 9:22 AM EDT) Hemoglobin A1C 6.0 4.0 - 6.0 % QC Media Lot # [id number] Lot# Expiration Date 088 Blood 05/02/2024 9:22 AM EDT Chavo Fairbanks MD POINT OF CARE TEST ENTER/EDIT OR DERABLES Final Result * BI Mammogram Diagnostic Tomosynthesis Bilateral (03/06/2024 2:06 PM EDT) Anatomical Region Laterality Modality Breast Bilateral Mammography 03/06/2024 2:06 PM EDT Narrative 03/06/2024 2:57 PM EDT ? [facility] ? [address] ?[place] [address] ? Mammography Report ? Signed ? Patient: Giovana,Lizaida ?MR#: ?? [id number] ? : 1970 ?Acct:[id number] ? Age/Sex: 53 / F ?ADM Date: 03/06/24 ? Loc: HO.MAMMO ? Attending Dr: Chavo Fairbanks MD ? Ordering Physician: Chavo Fairbanks MD ?Results: 1Negative ? Date of Service: 03/06/24 ?Follow Up: 1 Year From Orig ?? inal Mammogram ? Procedure(s): MM tomosynthesis diagnostic BI ?? Accession Number(s): [id number] ? cc: Chavo Fairbanks MD ? EXAMINATION: ?? MM DIAGNOSTIC DIGITAL BREAST TOMOSYNTHESIS, BILATERAL ?? US BREAST LIMITED, RIGHT ? MAMMOGRAPHY: ?? CLINICAL INFORMATION: ? 53-year-old female complaining of right breast pain/palpable focus ?? approximate 11:00 axis, anterior one third. As per technologist note, ?? history of breast cancer in sister at age 48. ? COMPARISON: ?? Bilateral Mammography and right breast ultrasound 10/02/2021 from ?? [facility]. ? TECHNIQUE: ?? Digital breast tomosynthesis is [...] 1453 ? DD/ 1406 ? TD/TT: ? Display Department Manager: ? Procedure Note Donotuseinterpreter, Image - 03/06/2024 [place] [facility] [address] [place] [address] Mammography Report Signed Patient: Chanel AkhtarR#: [id number] : 1970Acct:[id number] Age/Sex: 53 / FADM Date: 03/06/24 Loc: HO.MAMMO Attending Dr: Chavo Fairbanks MD Ordering Physician: Chavo Fairbanks MDResults: 1Negative Date of Service: 03/06/24Follow Up: 1 Year From Orig inal Mammogram Procedure(s): MM tomosynthesis diagnostic BI Accession Number(s): [id number] cc: Chavo Fairbanks MD EXAMINATION: MM DIAGNOSTIC DIGITAL BREAST TOMOSYNTHESIS, BILATERAL US BREAST LIMITED, RIGHT MAMMOGRAPHY: CLINICAL INFORMATION: 53-year-old female complaining of right breast pain/palpable focus approximate 11:00 axis, anterior one third. As per technologist note, history of breast cancer in sister at age 48. COMPARISON: Bilateral Mammography and right breast ultrasound 10/02/2021 from [facility]. TECHNIQUE: Digital breast tomosynthesis is performed in [...] in OV> 03/06/24 1453 DD/ 1406 TD/TT: Display Department Manager: us Chavo Name IMG BI PROCEDURES Final Result * Hepatitis Panel, General (10/08/2023 9:30 AM EST) Hepatitis A IgM Nonreactive Nonreactive [facility] Comment:IgM antibodies to MASSEY V not detected; does not exclude earlyacute or recovered HAV infection. ~Hepatitis B Surface Antibody NONREACTIVE Nonreactive [facility] Comment:Nonreactive: < 8.00 mIU/mL Hepatitis B Core Antibody Nonreactive Nonreactive [facility] Hepatitis C Antibody Nonreactive Nonreactive [facility] Comment:Antibodies to HCV no t detected; does not exclude early acuteHCV infection. Hepatitis B Surface Ag Negative Negative [facility] Blood 10/08/2023 9:30 AM EST 10/08/2023 11:29 AM EST Katina Cabrera MD LAB BLOOD ORDERABLES Fin al Result [facility] [address] [place] [phone] [phone] from Last 3 Months or Most Recently Relevant to Health Maintenance Insurance [facility] C3 HSN [employer]IAL Care Teams Body Engineer Relationship Specialty Start Date End Date Name, MD Chavo [address] [place] [phone] PCP - General Internal Medicine 10/25/23 Gretchen Spears PharmD [address] [place] [phone] Pharmacist Internal Medicine 11/25/23
--- OUTSIDE RECORDS SUMMARY | 2024-09-25 16:04 | XMS_ITS | Encounter Summary ---
Author Organization [employer] Address [address] [place] [address] 7t [place] [address] Care Team Providers Care Study Abroad Advisor Name Role Phone Name, Chavo MCMILLAN Primary Care Provider [phone] Gretchen Spears PharmD Unavailable [phone] Reason for Visit * Reason Comments Follow-up Encounter Details Date Type Department Care Team ([facility] st Contact Info) Description 09/06/2024 9:45 AM EST Office Visit [facility] MED[facility] [address] [place] [address] [phone] Name, MD Chavo [address] [place] [address] Type 2 diabetes mellitus without complication, without long-term current use of insulin ([facility]) (Primary Dx); Elevated blood pressure reading Social [...] complication, without long-term current use of insulin (CMS/[facility]) Comments: Continue current medications, avoid sweets and [...] complication, without long-term current use of insulin (CMS/[facility]) LIPID PANEL, STANDARD Routine 09/11/2024 8:31 AM EST Type 2 diabetes mellitus without complication, without long-term current use of insulin (CMS/[facility]) COMPREHENSIVE METABOLIC PANEL Routine 09/11/2024 8:31 AM EST Type 2 diabetes mellitus without complication, without long-term current use of insulin (CMS/[facility]) POCT GLUCOSE Routine 09/06/2024 9:51 AM EST Type 2 diabetes mellitus without complication, without long-term current use of insulin ([facility]) documented in this encounter Results * Albumin, Random Urine W/Creatinine (09/11/2024 8:31 AM EST) Creatinine, Urine 215.17 mg/dL [facility] Microalbumin Urine 16.0 mg/L [facility] Microalbum Creatinine Ratio Ur 7.4 <30 ug/mg cr [facility] Comment:Albumin/Creatinine R atio Reference Ranges: Normal: < 30 ug/mg creatinine Microalbuminuria: 30 - 300 ug/mg creatinineClinical Albuminuria: > 300 ug/mg creatinine Urine (Urine, Random) 09/11/2024 8:31 AM EST 09/11/2024 11:02 AM EST us Chavo Name LAB URINE ORDERABLES Final Resul t Performing Organization Address City/State/[facility] Co de Phone Number [facility] [address] [place] [phone] * (ABNORMAL) Lipid Panel, Standard (09/11/2024 8:31 AM EST) Triglycerides 180(H) <150 mg/dL [facility] Comment:Desirable Triglyceri de: less than 150 mg/dLBorderline High Triglyceride 150-199 mg/dLHigh Triglyceride: 200-499 mg/dLVery High Triglyceride: greater than or equal to 5OO mg/dL Cholesterol 150 <200 mg/dL [facility] Comment:Desirable Cholestero l: less than 200 mg/dLBorderline High Cholesterol: 200-239 mg/dLHigh Cholesterol: greater than 239 mg/dL LDL Cholesterol Calculated 80 <100 mg/dL [facility] Comment:Desirable LDL: less than 100 mg/dLNear Optimal/Above Optimal LDL: 110- 129 mg/dLBorderline High LDL: 130-159 mg/dLHigh LDL: 160-189 mg/dLVery High LDL: greater than or equal to 190 mg/dL HDL Cholesterol 34(L) >40 mg/dL [facility] Comment:Desirable HDL: great er than 40 mg/dL Note: This HDL assay may give artificially low results in patients with liver disease. Blood Venous blood specimen / Unknown 09/11/2024 8:31 AM EST 09/11/2024 11:06 AM EST us Chvao Name MD LAB BLOOD ORDERABLES Final Resul t [facility] [address] [place], [place] [phone] * (ABNORMAL) Comprehensive Metabolic Panel (09/11/2024 8:31 AM EST) Sodium 139 135 - 145 mmol/L [facility] Potassium 3.7 3.3 - 5.1 mmol/L [facility] Chloride 105 96 - 108 mmol/L [facility] Carbon Dioxide 26 22 - 29 mmol/L [facility] Anion Gap 12 12 - 20 [facility] Urea Nitrogen (BUN) 17(H) 9 - 16 mg/dL [facility] Creatinine, Serum 0.58 0.5 - 1.4 mg/dL [facility] Estimated Glomerular Filt Rate >60 [facility] Comment:Chronic Kidney Disea se: Estimated GFR < 60 mL/min/1.27q0Vsoojw Kidney Disease: Estimated GFR < 15 mL/min/1.73m2 Glucose 105 60 - 115 mg/dL [facility] Calcium 9.5 8.4 - 10.2 mg/dL [facility] Bilirubin, Total 0.3 0.0 - 1.0 mg/dL [facility] Aspartate Amino Transferase 28 5 - 31 U/L [facility] Alanine Aminotransferase 21 0 - 31 U/L [facility] Total Protein 8.4(H) 6.5 - 8.0 g/dL [facility] Albumin Level 3.9 3.5 - 5.0 g/dL [facility] Alkaline Phosphatase 31(L) 39 - 117 U/L [facility] Blood Venous blood specimen / Unknown 09/11/2024 8:31 AM EST 09/11/2024 11:06 AM EST us Chavo Fairbanks MD LAB BLOOD ORDERABLES Final Resul t [facility] [address] [place] [phone] * POCT Glucose (09/06/2024 9:51 AM [...] complication, without long-term current use of insulin ([facility])- Primary Elevated blood pressure reading Elevated blood pressure reading without diagnosis of hypertension documented in this encounter Additional Health Concerns Assessment Noted Time PHQ-9 Depression Total Score: 0 10/25/19 24 1:07 PM EDT documented as of this encounter Care Teams Study Abroad Advisor Relationship Specialty Start Date End Date Name, MD Chavo [address] [place] [address] PCP - General Internal Medicine 10/25/23 Gretchen Spears PharmD [address] [place] [address] Pharmacist Internal Medicine 11/25/23 documented as of this encounter
--- OUTSIDE RECORDS SUMMARY | 2024-09-25 16:04 | XMS_ITS | Encounter Summary ---
Author Organization [employer] Address [address] [place] [address] 7[address] [place] [address] Care Team Providers Care International Travel Consultant Name Role Phone Name, Chavo MCMILLAN Primary Care Provider [phone] Gretchen Spears PharmD Unavailable [phone] Reason for Visit * Reason Onset Date Comments Med Refill 06/19/2024 Encounter Details Date Type Department Care Team (Late st Contact Info) Description 06/19/2024 Refill [facility] [address] [place], [place] [phone] Name, MD Chavo [address] [place] [address] Type 2 diabetes mellitus without complication, unspecified whether keno terminal operator insulin use ([facility]) Social History Tobacco Use Types Packs/Day [...] 2 diabetes mellitus without complication, unspecified whether keno terminal operator insulin use ([facility]) documented in this encounter Additional Health Concerns Assessment Noted Time PHQ-9 Depression Total Score: 0 10/25/19 24 1:07 PM EDT documented as of this encounter Care Teams International Travel Consultant Relationship Specialty Start Date End Date Name, MD Chavo [address] [place] [address] PCP - General Internal Medicine 10/25/23 Gretchen Spears PharmD [address] [place] [address] Pharmacist Internal Medicine 11/25/23 documented as of this encounter
== END 2024-09-25 14:57 | disposition home or self-care (01) ==
PROVIDERS: PCP Internal Medicine Geriatric Medicine; Visit Provider Physician Assistant
DX: M75.22 Bicipital tendinitis, left shoulder (principal)
CPT/HCPCS: 20610; 99213

== ENCOUNTER → 2024-09-25 14:05 | Outpatient (BNV) | payer MEDICAID, SELFPAY | PROVIDERS: Visit Provider Radiology Diagnostic Radiology | DX: M19.012 Primary osteoarthritis, left shoulder (principal) | CPT/HCPCS: 73030 ==

== ENCOUNTER 2024-10-29 15:19 | Emergency (ER) | payer MEDICAID, SELFPAY ==
--- NOTE | ~2024-10-29 | CT_ITS ---
CLINICAL HISTORY: flank pain, dysuria, hematuria, history calculi CT abdomen and pelvis without IV contrast. COMPARISON: CT abdomen and pelvis dated 05/09/24 at 20:43 EDT FINDINGS: Small hiatal hernia. Hepatic steatosis. Liver is enlarged with right lobe measuring 24.1 cm. Normal gallbladder. Noncontrast appearance of the spleen, pancreas and adrenal glands are unremarkable. No right-sided hydronephrosis. No right hydroureter. No right renal or ureteral calculus. No left-sided hydronephrosis. No left hydroureter. No left renal or ureteral calculus. Appendix is not seen. Mild colonic stool burden. No bowel obstruction. No mesenteric or retroperitoneal lymphadenopathy. Mild aortoiliac atherosclerotic vascular calcifications. Urinary bladder is unremarkable given degree of distention. No adnexal mass. [id number] spondylosis. No acute fracture or suspicious osseous abnormality. IMPRESSION: 1. No evidence of renal obstruction. No renal or ureteral calculus bilaterally. 2. Hepatomegaly with hepatic steatosis. This document has been electronically signed by: Paul Whaley MD on 10/29/2024 16:58:55
[2024-10-29 15:21] VITALS: BP 123/60; PULSE 83; RESP 18; TEMP 36.6; O2SAT 97; BMI 37.9
--- NOTE | 2024-10-29 15:22 | ED_ITS ---
HPI - Back Pain/Injury General Chief Complaint: Urogenital-Female Stated Complaint: Kidney Stones?? Time Seen by Provider: 10/29/24 15:40 Source: patient Mode of arrival: ambulatory Limitations: no limitations History of Present Illness ED Provider: Jasmin Walsh NP HPI Narrative: Patient is a 53-year-old female who presents emergency department for evaluation of lower back pain, hematuria, dysuria With onset yesterday, history of nephrolithiasis. denies associated fevers, chills, abdominal pain, nausea, vomiting, diarrhea, constipation, having vaginal discharge or bleeding. No recent trauma or injury precipitating the pain. Pain feels consistent prior kidney stones. Related Data Home Medications ?Medication ?Instructions ?Recorded ?Confirmed atorvastatin 20 mg tablet 20 mg PO DAILY 05/10/24 09/25/24 cholecalciferol (vitamin D3) 50 50 mcg PO QAM 05/10/24 09/25/24 mcg (2,000 unit) capsule (Vitamin D3) dapagliflozin propaned 5 2 tab PO DAILY 05/10/24 09/25/24 mg-metformin ER 1,000 mg tablet, ext rel 24hr (Xigduo XR) dulaglutide 0.75 mg/0.5 mL 0.75 mg subcut ORO 05/10/24 09/25/24 subcutaneous pen injector (Trulicity) Previous Rx's ?Medication ?Instructions ?Recorded cyclobenzaprine 10 mg tablet 10 mg PO TID PRN muscle spasm #7 04/20/24 tabs cefpodoxime 200 mg tablet 200 mg PO BID #20 tabs 10/29/24 Allergies Allergy/AdvReac Type Severity Reaction Status Date / Time No Known Allergies Allergy Verified 10/29/24 15:23 Review of Systems 2 Review of Systems: Yes all other systems are reviewed and are negative [facility] Past Medical History Attestation statement: The following information was validated with the patient. Source: old records reviewed Medical History YESSICA on CPAP Type 2 diabetes mellitus without complications HLD (hyperlipidemia) Surgical History Previous section Social History Social History (Updated 09/25/24 @ 14:21 by LISA Peralta) Household Members: Children Household Members Other:: daughter in her 30s Housing: House Do you presently have visiting nurse or other home services: No Unable to assess alcohol history related to: Unknown Alcohol intake: never Patient Tobacco Use Status: Never used Tobacco Use of substances other than those prescribed or required for medical reasons: Unknown Advance Directives: No Advance Directives Information Provided: Yes Do you have a plan to hurt others: No Plan Current occupational status: unemployed Current occupation: right hand dominant Physical Exam 2 Vital Signs: Vital Signs: Last Vital Signs Temp 97.9 F 10/29/24 15:21 Pulse 83 10/29/24 15:21 Resp 18 10/29/24 15:21 BP 123/60 10/29/24 15:21 Pulse Ox 97 10/29/24 15:21 O2 Del Method Room Air 10/29/24 15:21 BMI result Body Mass Index 37.9 Appearance: Alert.?Oriented to person, place and time. No acute distress.?Normal affect. Eyes: Pupils equal, round and reactive to light.? ENT: Pharynx normal.?? Neck: Normal inspection.? Neck supple.?? CVS: Heart sounds normal. Normal heart rate and rhythm.? Pulses normal.?? Respiratory: No respiratory distress.? Lung sounds clear to auscultation bilaterally?? Abdomen: Soft and non-tender. Mild bilateral CVAT. Normoactive bowel sounds. Skin: Skin warm and dry.? Normal skin color.? ? Extremities: No lower extremity edema.? No calf ttp? Neuro: Moves all extremities spontaneously. Sensation intact bilaterally. Ambulates with normal steady gait. Course Reevaluation(s) Reevaluation #1: CT of the abdomen pelvis is without acute pathology, no evidence of urolithiasis. CBC is without leukocytosis anemia or thrombocytopenia. No electrolyte derangement. No DEJAH. Overall unremarkable LFTs. urinalysis is concentrated glucosuria no ketonuria, findings consistent with urinary tract infection, given associated back pain concern for pyelonephritis, again without signs of systemic toxicity. At this time feel that she is stable for discharge home, prescription for antibiotics sent to pharmacy, strict return precautions. All questions answered. Medications Administered Discontinued Medications Generic Name Dose Route Start Last Admin Trade Name Freq PRN Reason Stop Dose Admin Ketorolac Tromethamine 15 mg 10/29/24 16:06 10/29/24 16:35 Ketorolac Tromethamine 15 Mg/Ml Vial IM 10/29/24 16:07 15 mg ONCE ONE Administration Medical Decision Making Medical Decision Making [facility] Narrative: patient is a 53 old female past medical history of YESSICA, type 2 diabetes, hyperlipidemia who presents emergency department for evaluation of bilateral lower back/ flank pain with CVAT associated dysuria and hematuria history of nephrolithiasis. Will obtain CBC to evaluate for leukocytosis/ anemia, CMP and lipase to evaluate for abnormal electrolytes /abnormal renal function/ abnormal hepatic/biliary function, and Urinalysis in addition to non con CT of the abdomen and pelvis to exclude obstructive uropathy. Differential Diagnosis Differential Diagnoses: The differential diagnosis associated with the presentation includes ( UTI, pyelonephritis, obstructive uropathy, hydronephrosis, DEJAH) Admission/Observation Consideration of admission/observation: Escalation of care including admission/observation considered Lab Data [facility] Lab Attestation statement: I reviewed the patient's lab results. 10/29/24 17:17 10/29/24 17:17 Labs: Lab Results 10/29/24 10/29/24 Range/Units 17:17 17:25 WBC 8.8 (4.8-10.8) X10*3/uL RBC 4.30 (4.20-5.50) X10*6/uL Hgb 13.2 (12.0-16.0) g/dl Hct 38.8 (37.0-47.0) % MCV 90.2 (80.0-98.0) fL MCH 30.7 (27.0-33.0) pg MCHC 34.0 (31.0-35.0) g/dl RDW 13.5 (11.0-16.0) % Plt Count 259 D (160-400) X10*3/uL MPV 8.6 L (9.4-12.3) fL Immature Gran % (Auto) 0.2 (0.0-0.4) % Neut % (Auto) 54.0 (45-73) % Lymph % (Auto) 36.8 (20-40) % [place] % (Auto) 6.2 (2-11) % Eos % (Auto) 2.3 (0-4) % Baso % (Auto) 0.5 (0-2) % Lymph # (Auto) 3.2 (1.2-4.9) X10*3/uL [place] # (Auto) 0.5 (0.1-1.2) X10*3/uL Eos # (Auto) 0.2 (0.0-0.4) X10*3/uL Baso # (Auto) 0.0 (0.0-0.2) X10*3/uL Abs Immat Gran (auto) 0.02 (0.00-0.03) X10*3/uL Absolute Neuts (auto) 4.7 (2.0-8.3) x10*3/uL Absolute Nucleated RBC 0.000 (0.0-0.012) X10*3/uL Nucleated RBC % (auto) 0.0 (0.0-0.2) /100WBC Sodium 143 (135-145) mmol/L Potassium 4.5 D (3.3-5.1) mmol/L Chloride 108 (96-108) mmol/L Carbon Dioxide 28 (22-29) mmol/L Anion Gap 12 (12-20) BUN 16 (9-16) mg/dL Creatinine 0.67 (0.5-1.4) mg/dL Estim Creat Clear Calc 106.4 Estimated GFR > 60 Random Glucose 83 (60-115) mg/dL Calcium 9.3 (8.4-10.2) mg/dL Total Bilirubin 0.2 (0.0-1.0) mg/dL AST 23 (5-31) U/L ALT 26 (0-31) U/L Alkaline Phosphatase 35 L (39-117) U/L Total Protein 7.2 (6.5-8.0) g/dL Albumin 3.8 (3.5-5.0) g/dL Lipase 87 H (8-78) U/L Urine Color Yellow Urine Appearance Clear Urine pH 7.0 (5.0-9.0) Ur Specific [place] >= 1.030 H (1.005-1.025) Urine Protein Negative (Neg-Trace) mg/dL Urine Glucose (UA) >=1000 H (Negative) mg/dL Urine Ketones Negative (Negative) mg/dL Urine Blood Negative (Negative) Urine Nitrite Positive H (Negative) Ur Leukocyte Esterase Trace H (Negative) Urine RBC 0-2 (0-2) /HPF Urine WBC 11-20 H (0-5) /HPF Ur Squamous Epith Cells 3-5 (0-2) /HPF Urine Bacteria 4+ (None Seen) Hyaline Casts 0-2 (0-2) /LPF Independent Interpretation I performed an independent interpretation of an: CT Scan ( no urolithiasis) Radiology Impression Discussion of test interpretation with radiology: I have reviewed the radiologist's reading. Radiologist Impression: IMPRESSION: 1. No evidence of renal obstruction. No renal or ureteral calculus bilaterally. 2. Hepatomegaly with hepatic steatosis. External Record Review External record reviewed: Outpatient record follows with urology, Dr. Tse; in May of 2024 had left-sided cystoscopy, left retrograde, left dilation of ureteric orifice under fluoroscopy, left ureteroscopy, laser lithotripsy, stone basketing, and stent placement due to 6 mm ureteric stone. Chronic Conditions Patient?s care impacted by: Other ( see narrative above) Discharge Plan Discharge Clinical Impression: Pyelonephritis Patient Disposition: Home, Self-Care Instructions: Kidney Infection (ED) Additional Instructions: A prescription for antibiotic has been sent to [facility] on [address], as discussed, you are found to have an infection in the urinary tract, given the associated back pain there was concern that this is traveled anterior kidneys. Your blood work today was very reassuring, does not show evidence of injury or damage to the kidneys at this time. CT scan does not show evidence of kidney stones. If you develop new or worsening symptoms or concerns which include but is not limited to fevers, chills, worsening pain, nausea persistent vomiting, inability to urinate, you should return for re-evaluation. Complete the entire course of antibiotics do not skip any doses or stop taking early even if you begin to feel better. Contact your primary care doctor to arrange for a follow- up visit. Prescriptions: New cefpodoxime 200 mg tablet 200 mg PO BID Qty: 20 0RF Rx Instructions: must administer with a meal/food No Action cyclobenzaprine 10 mg tablet 10 mg PO TID PRN (Reason: muscle spasm) Qty: 7 0RF atorvastatin 20 mg tablet 20 mg PO DAILY cholecalciferol (vitamin D3) [Vitamin D3] 50 mcg (2,000 unit) capsule 50 mcg PO QAM Trulicity 0.75 mg/0.5 mL pen injector 0.75 mg subcut ORO dapaglifloz propaned-metformin [Xigduo XR] 5-1,000 mg tablet, IR - ER, biphasic 24hr 2 tab PO DAILY Referrals: Name,MD Chavo [Primary Care Provider] - Print Language: Australian
[2024-10-29] MEDS: Ketorolac Tromethamine 15 MG/ML VIAL IM (16:35)
[2024-10-29 17:21] LABS: MANUAL DIFF FLAG NO
[2024-10-29 17:34] LABS: Appearance Urine Clear; Color Urine Yellow; Glucose Urine UA >=1000 mg/dL (Negative); Leukocyte Esterase Urine Trace (Negative); Nitrite Urine Positive (Negative); Specific Gravity - Urine >= 1.030 (1.005-1.025); UMIC TRIGGER UACC YES; Urine Blood Negative (Negative); Urine Ketones Negative (Negative); Urine Protein Negative (Neg-Trace)
[2024-10-29 17:37] LABS: Alanine Aminotransferase 26 U/L (0-31); Albumin Level 3.8 g/dL (3.5-5.0); Alkaline Phosphatase 35 U/L (39-117); Anion Gap 12 (12-20); Aspartate Amino Transferase 23 U/L (5-31); Bilirubin Total 0.2 mg/dL (0.0-1.0); Blood Urea Nitrogen 16 mg/dL (9-16); Calcium 9.3 mg/dL (8.4-10.2); Carbon Dioxide 28 mmol/L (22-29); Chloride 108 mmol/L (96-108); Creatinine Clr Calc Pharmacy 106.4; Estimated Glomerular Filt Rate > 60; Glucose Random 83 mg/dL (60-115); Lipase 87 U/L (8-78); Potassium 4.5 mmol/L (3.3-5.1); Sodium 143 mmol/L (135-145); Total Protein 7.2 g/dL (6.5-8.0)
[2024-10-29 17:38] LABS: Basophils Percent Auto 0.5 % (0-2); Eosinophils Absolute Auto 0.2 X10*3/uL (0.0-0.4); Eosinophils Percent Auto 2.3 % (0-4); Hematocrit 38.8 % (37.0-47.0); Hemoglobin 13.2 g/dl (12.0-16.0); Imm Gran Abs Auto 0.02 X10*3/uL (0.00-0.03); Imm Gran Pct Auto 0.2 % (0.0-0.4); Lymphocytes Absolute Auto 3.2 X10*3/uL (1.2-4.9); Lymphocytes Percent Auto 36.8 % (20-40); Mean Corpuscular Hemoglobin 30.7 pg (27.0-33.0); Mean Corpuscular Volume 90.2 fL (80.0-98.0); Mean Platelet Volume 8.6 fL (9.4-12.3); Monocytes Absolute Auto 0.5 X10*3/uL (0.1-1.2); Monocytes Percent Auto 6.2 % (2-11); Neutrophils Absolute Auto 4.7 x10*3/uL (2.0-8.3); Platelet Count 259 X10*3/uL (160-400); Red Cell Distribution Width 13.5 % (11.0-16.0); White Blood Count 8.8 X10*3/uL (4.8-10.8)
[2024-10-29 17:40] LABS: Bacteria Urine 4+ (None Seen); Hyaline Casts Urine 0-2 /LPF (0-2); RBC Urine 0-2 /HPF (0-2); UACC Culture Trigger YES
[2024-10-29 18:24] VITALS: BP 123/60; PULSE 83; RESP 18; TEMP 36.6; O2SAT 97
== END 2024-10-29 18:24 | disposition home or self-care (01) ==
PROVIDERS: Nurse Practitioner Family; Emergency Provider Internal Medicine; PCP Internal Medicine Geriatric Medicine
DX: N12 Tubulo-interstitial nephritis, not specified as acute or chronic (principal); R30.0 Dysuria; M54.50 Low back pain, unspecified; R31.9 Hematuria, unspecified; Z79.899 Other long term (current) drug therapy
CPT/HCPCS: 36415; 74176; 80053; 81001; 83690; 85025; 87086; 87088; 87186; 96372; 99284; J1885

== ENCOUNTER → 2024-10-29 15:46 | Outpatient (BNV) | payer MEDICAID, SELFPAY | PROVIDERS: Emergency Provider Internal Medicine; PCP Internal Medicine Geriatric Medicine; Visit Provider Radiology Diagnostic Radiology | DX: R16.0 Hepatomegaly, not elsewhere classified (principal) | CPT/HCPCS: 74176 ==

== ENCOUNTER 2024-11-03 17:36 | Outpatient (REF) | payer MEDICAID, SELFPAY | END 2024-11-03 17:37 | disposition home or self-care (01) | LOC: HO.HHCLNP 17:36 | PROVIDERS: Visit Provider Family Medicine | DX: B37.31 Acute candidiasis of vulva and vagina (principal); R39.9 Unspecified symptoms and signs involving the genitourinary system | CPT/HCPCS: 87086 ==

== ENCOUNTER 2024-11-08 10:00 | Outpatient (RCR) | payer MEDICAID, SELFPAY ==
--- NOTE | 2024-10-20 10:46 | MHC.PT.EP ---
[facility] [place] Office [place] [facility] [place] [facility] [address] Laura Trujillo [address] [phone] F: [phone] F: [phone] F: [phone] F: [phone] Physical Therapy Plan of Care Date of Evaluation: 10/20/24 Date of Surgery: Diagnosis: bicipital tendonitis, left shoulder. Assessment: Patient is a 53 year old R handed female who presents with s/s consistent with bicipital tendonitis. L shoulder pain. She is not currently working and is fairly sedentary at this time. She recently moved here from [facility]. Patient past medical history includes YESSICA and obesity. Current impairments include pain, posture, ROM, strength, activity tolerance and functional mobility. Functional limitations include decreased ability to lift, carry, push, pull, dress, and sleep. Patient is motivated with good rehab potential. Skilled PT will address impairments and functional limitations in order to achieve goals. Frequency and Duration: The patient will be seen 2x/week for 5 weeks Short Term Goals: I with HEP -2 weeks AROM full and pain free - 3 weeks Pain free sleep - 3 weeks Improved postural awareness - 3 weeks Forensic Document Examiner Goals: Shoulder Strength - 4/5 grossly - 5 weeks SPADI 30/130 - 5 weeks min tight b/l pec - 5 weeks MT/LT 4/5 b/l - 5 weeks Able to dress and hold 5# overhead pain free - 5 weeks Treatment Plan: Modalities to reduce pain, spasms and effusion. Manual therapy to restore motion and function. Therapeutic exercise to improve strength and flexibility. Neuromuscular re-education for posture and balance. Therapeutic activities to return to functional activities of daily living. Electronically signed by: Brennan Pierre, PT Please sign and return to therapist. Thank you for your referral.
--- NOTE | 2025-02-09 10:03 | MHC.PT.DC ---
[facility] [place] Office [place] Office [place] Office [address] Kari Trujillo [address] [phone] F: [phone] F: [phone] F: [phone] F: [phone] Physical Therapy Discharge Report Diagnosis: bicipital tendonitis, left shoulder. Date of Surgery: Date of Evaluation: 10/20/24 Date of Discharge: Treatments to Date: 3 Cancellations to Date: No Shows to Date: Discharge Status: Independent with HEP Patient Elected to Stop Discharge Summary: 11/08/24: pt still in significant pain for kidney stones and being followed. we have been cautious with progression and positions for exertion. 11/01/24: pt limited by kidney stones but we did progress and enoucraged her in her HEP to add wall slides. assess response and progress as tolerated. Patient is a 53 year old R handed female who presents with s/s consistent with bicipital tendonitis. L shoulder pain. She is not currently working and is fairly sedentary at this time. She recently moved here from [facility]. Patient past medical history includes YESSICA and obesity. Current impairments include pain, posture, ROM, strength, activity tolerance and functional mobility. Functional limitations include decreased ability to lift, carry, push, pull, dress, and sleep. Patient is motivated with good rehab potential. Skilled PT will address impairments and functional limitations in order to achieve goals. Electronically signed by: Brennan Pierre, PT Please sign and return to therapist. Thank you for your referral.
== END 2025-02-09 10:04 | disposition home or self-care (01) ==
LOC: HO.PTCHIC 10:00
PROVIDERS: Visit Provider Physician Assistant
DX: M75.22 Bicipital tendinitis, left shoulder (principal)
CPT/HCPCS: 97110; 97140; 97162

== ENCOUNTER 2024-11-27 16:07 | Outpatient (REF) | payer MEDICAID, SELFPAY ==
--- OUTSIDE RECORDS SUMMARY | 2024-11-27 18:48 | XMS_ITS | Encounter Summary ---
Author Organization [employer] Address [address] [place] [address] [address] [place] [address] Care Team Providers Care Roofer Vinyl Coating Name Role Phone Name, Chavo MCMILLAN Primary Care Provider [phone] Gretchen Spears PharmD Unavailable [phone] Reason for Visit * Reason Onset Date Comments Nurse Triage 11/01/2024 Encounter Details Date Type Department Care Team ([facility] st Contact Info) Description 11/01/2024 Telephone [facility] [address] [place], [place] [phone] Name, MD Chavo [address] [place] [address] Nurse Triage Social History Tobacco Use Types Packs/Day Years [...] encounter Miscellaneous Notes * Telephone Encounter - Loreto Koehler RN - 11/01/2024 5:36 PM EDT Triage call with [facility] Bottling Room Worker [place] [id number] . [place] [facility] [place] for low back pain and urinary symptoms , hematuria and dysuria. Pt reports continues to have pain no further hematuria or urinary symptoms present. Pt continues to take prescribed antibiotics and is drinking adequate liquids. Pt is requesting ED follow up . Pt is given ASK with MARY Enciso 11/06/24 @ 1130am. Pt agrees with disposition. Insurance is verified as active prior to booking. ED report is on the chart. Protocol Used: Back Pain (Adult) Protocol-Based Disposition: See in Office or Video Visit within 2 Weeks Video visit not offered Positive Triage Question: * Back pain lasts > 2 weeks * All higher-acuity triage questions were negative Care Advice Discussed: * Reassurance and Education - Back Pain * Cold or Heat * Pain Medicines * Reasons To Call Back - Fever occurs - Numbness or weakness occurs - Loss of control of your bladder or bowel - Severe pain not better after taking pain medicines - Pain begins to shoot into the leg - Pain lasts over 2 weeks - Pain becomes worse - You become worse * Telephone Encounter - Sourav Kaur - 11/01/2024 4:28 PM EDT Patient calling to report ED visit on : Date: 10/29/24 [place] [facility] [place] Seen for: lower back pain /kidney infection Symptomatic Yes *if yes message should go to Triage documented in this encounter Plan of Treatment Upcoming Encounters Date Type Department Care Team (Late st Contact Info) Description 12/01/2024 9:30 AM EDT Office Visit [facility] [address] [place] [phone] Ayah Kerns MD [address] [place] [phone] 01/24/2025 4:00 PM EDT Office Visit [address] [phone] NameChavo MD [address] [place] [phone] documented as of this encounter Goals Goal Patient Goal Type Associated Problems Recent Progress Patient-Stated? Author Hemoglobin A1c < 7 Result Component 5.7( 11:53 AM EDT) No Puia, Gretchen, PharmD Record your blood sugar as directed Result Component No PuiaKjGretchen, PharmD documented as of this encounter Visit Diagnoses Not on filedocumented in this encounter Additional Health Concerns Assessment Noted Time PHQ-9 Depression Total Score: 0 10/25/19 24 1:07 PM EDT documented as of this encounter Care Teams Roofer Vinyl [employer]ating Relationship Specialty Start Date End Date Name, MD Chavo [address] [place] [phone] PCP - General Internal Medicine 10/25/23 PuiaGretchen, PharmD [address] [place] [address] [phone] Pharmacist Internal Medicine 11/25/23 documented as of this encounter
--- OUTSIDE RECORDS SUMMARY | 2024-11-27 18:48 | XMS_ITS | Encounter Summary ---
Author Organization [employer] Address [address] [facility] [address] [place] [address] Care Team Providers Care Driver Trainer Name Role Phone Name, Chavo MCMILLAN Primary Care Provider [phone] Gretchen Spears PharmD Unavailable [phone] Reason for Visit * Reason Onset Date Comments Med Refill 08/05/2024 Encounter Details Date Type Department Care Team (Late st Contact Info) Description 08/05/2024 Refill [facility] [address] [place], [place] [phone] Katina Cabrera MD [address] [place] [address] Social History Tobacco Use Types Packs/Day Years [...] as of this encounter Plan of Treatment Upcoming Encounters Date Type Department Care Team (Late st Contact Info) Description 12/01/2024 9:30 AM EDT Office Visit [facility] [address] [place] [phone] Ayah Kerns MD [address] [place] [phone] 01/24/2025 4:00 PM EDT Office Visit [facility] [address] [place] [phone] Chavo Fairbanks MD [address] [place] [phone] documented as of this encounter Goals Goal [...] documented as of this encounter Care Teams Driver Trainer Relationship Specialty Start Date End Date NameChavo MD [address] [place] [phone] PCP - General Internal Medicine 10/25/23 Gretchen Spears, Debo [address] [place] [phone] Pharmacist Internal Medicine 11/25/23 documented as of this encounter
--- OUTSIDE RECORDS SUMMARY | 2024-11-27 18:48 | XMS_ITS | Encounter Summary ---
Author Organization [employer] Address [address] [place] [address] 7[address] [place] [address] Care Team Providers Care Bagman/Woman Name Role Phone Name, Chavo MCMILLAN Primary Care Provider [phone] Gretchen Spears PharmD Unavailable [phone] Reason for Visit * Reason Onset Date Comments Med Refill 06/19/2024 Encounter Details Date Type Department Care Team (Late st Contact Info) Description 06/19/2024 Refill [facility] [address] [place], [place] [phone] Name, MD Chavo [address] [place] [address] Type 2 diabetes mellitus without complication, unspecified whether long term acute care registered nurse insulin use ([facility]) Social History Tobacco Use Types Packs/Day [...] Description 12/01/2024 9:30 AM EDT Office Visit [facility] [address] [place] [address] Ayah Kerns MD [address] [place] [phone] 01/24/2025 4:00 PM EDT Office Visit [address] [address] Chavo Fairbanks MD [address] [place] [phone] documented as of this encounter Goals Goal Patient Goal Type Associated Problems Recent Progress Patient-Stated? Author Hemoglobin A1c < 7 Result Component 5.7( 11:53 AM EDT) No Puia, Gretchen, PharmD Record your blood sugar as directed Result Component No Puia, Gretchen, PharmD documented as of this encounter Visit Diagnoses Diagnosis Type 2 diabetes mellitus without complication, unspecified whether [facility] insulin use ([facility]) documented in this encounter Additional Health Concerns Assessment Noted Time PHQ-9 Depression Total Score: 0 10/25/19 24 1:07 PM EDT documented as of this encounter Care Teams Bagman/Woman Relationship Specialty Start Date End Date Chavo Fairbanks MD [address] [place] [address] PCP - General Internal Medicine 10/25/23 Gretchen Spears PharmD [address] [place] [address] Pharmacist Internal Medicine 11/25/23 documented as of this encounter
--- OUTSIDE RECORDS SUMMARY | 2024-11-27 18:48 | XMS_ITS | Clinical Summary ---
Author Organization [employer] Address [address] [place] [address] [address] [place] [address] Care Team Providers Care Store Detective Name Role Phone Name, Chavo MCMILLAN Primary Care Provider [phone] Gretchen Spears PharmD Unavailable [phone] Allergies No known active allergies Medications glucose blood test strip Use as instructed 100 each 12 10/04/19 24 Active TRUEplus Lancets 33G misc USE DIRECTED TO TEST BLOOD SUGAR EVERY DAY IN THE MORNING 10/04/19 24 Active dapagliflozin- metFORMIN ER (Xigduo XR) 5-1000 MGIndications: Type 2 diabetes mellitus without complication, unspecified whether detention insulin use ([facility]) Take 2 tablets by mouth [...] 2 mL 2 09/06/19 25 026 Active atorvastatin (Lipitor) 20 MG tablet TAKE 1 TABLET BY MOUTH EVERY DAY IN THE MORNING 30 tablet 10/31/19 25 Active D3 Super Strength 50 MCG (2000 UT) capsule TAKE 1 CAPSULE BY MOUTH EVERY DAY IN THE MORNING 30 capsule 10/31/19 25 Active clotrimazole (Lotrimin) 1 % vaginal creamIndicatio ns:Vulvovagina l Candidiasis Insert one applicator per vagina at bedtime for 7 nights 45 g 11/04/19 Active clotrimazole (Lotrimin) 1 % creamIndicatio ns:Tinea corporis Apply topically 2 times daily for 28 days. 35.4 g 11/07/19 25 025 Active lidocaine (Lidoderm) 5 % patch Apply 1 patch topically Once per day. Remove & discard patch within 12 hours or as directed by MD. 30 patch 2 11/28/19 25 026 Active acetaminophen (Tylenol) 325 MG tablet Take 2 tablets (650 mg) by mouth every 6 (six) hours if needed for moderate pain. OTC 40 tablet 11/28/19 Active tiZANidine (Zanaflex) 2 MG tablet Take 1 tablet (2 mg) by mouth every 6 (six) hours if needed for muscle spasms for up to 10 days. 30 tablet 11/28/19 025 Active fluconazole (Diflucan) 150 MG tablet Take 1 tablet (150 mg) by mouth Once per day for 1 dose. Prn vaginal yeast infection 1 tablet 11/28/19 25 025 Active amoxicillin-cl avulanate (Augmentin) 875-125 MG tablet Take 1 tablet by mouth 2 times daily for 7 days. 14 tablet 11/28/19 025 Active atorvastatin (Lipitor) 20 MG tablet Take 1 tablet (20 mg) by mouth in the morning. 30 tablet 11 10/25/19 025 Discontinued D3 Super Strength 50 MCG (1999 UT) capsule TAKE 1 CAPSULE BY MOUTH EVERY DAY IN THE MORNING 10/25/19 025 Discontinued acetaminophen (Tylenol) 325 MG tablet Take 2 tablets by mouth every 6 (six) hours if needed for mild pain. OTC 025 Discontinued(Re order (will not trigger notification to Pharmacy)) Active Problems Problem Noted Date Diagnosed Date Tinea corporis 11/06/2024 Recent urinary tract infection 11/06/2024 Vaginal candidiasis 11/06/2024 Sebaceous gland hyperplasia 06/06/2024 Assessment & Plan [...] to fu with new PCP in 4-6w information lead visit. Order labs Counseled re more frequent [...] Encounters Date Type Department Care Team Description 11/27/2024 10:00 AM EDT Office Visit [facility] [address] [place] [phone] Brennan Buitrago MD Dysuria (Primary Dx); Acute left-sided low back pain without sciatica; UTI symptoms 11/06/2024 11:30 AM EDT Office Visit [facility] [address] [place] [phone] Maggie Enciso FNP Tinea corporis (Primary Dx); Recent urinary tract infection; Vaginal candidiasis 11/06/2024 Travel 11/03/2024 9:40 AM EDT Office Visit [facility] [address] [place] [phone] Chino Trimble MD Recent urinary tract infection (Primary Dx); Vaginal candidiasis 11/01/2024 Telephone [facility] [address] [place] [address] Chavo Fairbanks MD Nurse Triage 10/30/2024 Orders Only [address] [address] Chavo Fairbanks MD 10/30/[address] [address] Chavo Fairbanks MD 10/29/2024 Orders Only [facility] External Provider, [facility] 10/13/2024 Population Health Risk Score [facility] () Department [address] [place] [phone] Provider, Population Health Generic 10/09/2024 Telephone [facility] [place] [address] Chavo Fairbanks MD Referral 09/06/2024 9:45 AM EST Office Visit [facility] [place] [address] Chavo Fairbanks MD Type 2 diabetes mellitus without complication, without long-term current use of insulin ([facility]) (Primary Dx); Elevated blood pressure reading from Last 3 Months Immunizations Name Administration Dates Next Due Hep A, Adult 01/11/2024 HepB-CpG 01/11/2024 Influenza Injectable Quadriv alant Preservative Free IIV4 MDCK 05/06/2022 Influenza, seasonal, injectable, preservative fr ee 04/26/2024 Pneumococcal Conjugate PCV 20 04/26/2024 Pneumococcal Polysaccharide PPSV23 10/11/2019 Tdap 11/25/2023 Social History Tobacco Use Types Packs/Day Years Used Date Smoking Tobacco: Former Cigarettes Smokeless Tobacco: Never Tobacco Cessation:Counseling Given: Not [...] Sign Reading Time Taken Comments Blood Pressure 144/77 11/27/2024 10:00 AM EDT Pulse 93 11/27/2024 10:00 AM EDT Temperature 36.6 ??C (97.9 ??F) 11/27/2024 10:00 AM E DT Respiratory Rate 18 11/27/2024 10:00 AM EDT Oxygen Saturation 96% 11/27/2024 10:00 AM EDT Inhaled Oxygen Concentration - - Weight 97 kg (213 lb 12.8 oz) 11/27/2024 10:00 A M EDT Height 160 cm (5' 3 ) 11/06/2024 11:24 AM EDT Body Mass Index 37.87 11/06/2024 11:24 AM EDT Plan of Treatment Upcoming Encounters Date Type Department Care Team (Late st Contact Info) Description 12/01/2024 9:30 AM EDT Office Visit [facility] [address] [place] [address] Ayah Kerns MD [address] [place], [place] [phone] 01/24/2025 4:00 PM EDT Office Visit [facility] [address] [place] [address] Name, MD Chavo [address] [place] [address] Health Maintenance Due Date Last Done Comments CT Colonography 1969 Colonoscopy 1969 Colorectal Cancer Screening 1969 FIT DNA/Cologuard 1969 FIT 1969 FOBT 1970 HIV Screening 1970 Sigmoidoscopy 1969 Diabetes: Foot Exam 11/16/1979 Pap Smear 1990 Cervical Cancer Screening 11/16/1999 HPV/Cotest 11/16/1999 Hepatitis B Vaccines (2 of 2 - CpG 2-dose series) 02/08/2024 01/11/2024 COVID-19 Vaccine ( - season) 2024 Zoster Vaccines (2 of 2) 07/13/2024 05/18/2024 SDOH Screening 10/17/2024 10/18/2023 Depression Screening 10/24/2024 10/25/2023, 10/25/19 24 Alcohol/Substance Use Screening 01/17/2025 01/18/2024 Diabetes: Hemoglobin A1C 05/05/2025 0404/2 025, 05/02/2024, 01/11/2024, Additional history exists Diabetes: Urine Protein Screening 09/11/2025 09/11/2024, 10/08/2023 Lipid Panel 09/11/2025 09/11/2024, 12/31, 10/08/2023 Tobacco Screening 11/27/2025 11/27/2024 Mammogram 03/06/2026 03/06/2024, 08/0 12/2023, 10/02/2021, Additional [...] Result Component 5.7( 11:53 AM EDT) No Gretchen Spears, PharmErnesto Record your blood sugar as directed Result Component No Regan, Gretchen, PharmD Procedures Procedure Name Priority Date/Time Associated Diagnosis Comments POCT URINALYSIS DIPSTICK Routine 11/27/2024 10:08 AM EDT UTI symptoms POCT GLYCATED HEMOGLOBIN, TOTAL Routine 11/03/2024 11:53 AM EDT Recent urinary tract infection CULTURE, URINE, ROUTINE Routine 11/03/2024 10:00 AM EDT Vaginal candidiasis POCT URINALYSIS DIPSTICK Routine 11/03/2024 9:46 AM EDT Vaginal candidiasis URINALYSIS, COMPLETE, WITH REFLEX TO CULTURE Routine 10/29/2024 5:25 PM EDT CBC WITH AUTO DIFFERENTIAL Routine 10/29/2024 5:17 PM EDT LIPASE Routine 10/29/2024 5:17 PM EDT COMPREHENSIVE METABOLIC PANEL Routine 10/29/2024 5:[address] ABDOMEN PELVIS WO CONTRAST Routine 10/29/2024 4:58 PM EDT CULTURE, URINE, ROUTINE Routine 10/29/2024 12:00 AM EDT ALBUMIN, RANDOM URINE W/CREATININE Routine 09/11/2024 8:31 [...] without long-term current use of insulin (CMS/HCC) BI MAMMOGRAM DIAGNOSTIC TOMOSYNTHESIS BILATERAL Routine 03/06/2024 2:06 PM EDT Painful lumpy right breast HEPATITIS PANEL, GENERAL Routine 10/08/2023 9:30 AM EST Dizziness from Last 3 Months or Most Recently Relevant to Health Maintenance Results * (ABNORMAL) POCT urinalysis dipstick manually resulted (11/27/2024 10:08 AM EDT) Only the most recent of2 resultswithin the time period is included. Color, UA Yellow Clarity, UA Clear Glucose, UA Few 15 Comment:500 mg/dL Bilirubin, UA Negative Ketones, UA Negative Spec Grav, UA 1.020 Blood, UA Positive(A) Negative, None Detected Comment:Trace-lysed pH, UA 5.5 Protein, UA Negative Urobilinogen, UA 0.2 Leukocytes, UA Negative Negative, Rare, Trace Nitrite, UA Positive(A) Negative, None Detected Urine 11/27/2024 10:0 8 AM EDT Brennan Buitrago MD POINT OF CARE TEST ENTER/EDIT OR DERABLES Final Result * POCT A1C (11/03/2024 11:53 AM EDT) Hemoglobin A1C 5.7 4.0 - 6.0 % Blood 11/03/2024 11:5 3 AM EDT Chino Trimble MD POINT OF CARE TEST ENTER/EDIT OR DERABLES Final Result * Culture, Urine, Routine (11/03/2024 10:00 AM EDT) Only the most recent of2 resultswithin the time period is included. Urine Urine specimen obtained by clean catch procedure / Unknown 11/03/2024 10:00 AM EDT 11/03/2024 5:37 PM EDT Comment:UACC Narrative [facility] - 11/05/2024 11:03 AM EDT Urine Culture Report Result Urine Culture < 10,000 cfu/ml Specimen Source: Urine clean catch Chino Trimble MD LAB MICROBIOLOGY - GENERAL ORDER RAFAEL Final Result [facility] [address] [place] [phone] * (ABNORMAL) Urinalysis, Complete, with Reflex to Culture (10/29/2024 5:25 PM EDT) Color Urine Yellow [facility] Appearance Urine Clear [facility] PH 7.0 5.0 - 9.0 [facility] Glucose Urine UA >=1000(A) Negative mg/dL [facility] Urine Blood Negative Negative [facility] Specific [place] - Urine >=1.030(H) 1.005 - 1.025 [facility] Urine Protein Negative Neg-Trace mg/dL [facility] Urine Ketones Negative Negative mg/dL [facility] Nitrite Urine Positive(A) Negative [facility] Leukocyte Esterase Urine Trace(A) Negative [facility] RBC Urine 0-2 0 - 2 /HPF [facility] Urine WBC 11-20(A) 0 - 5 /HPF [facility] Urine Squamous Epithelial Cell 3-5 0 - 2 /HPF [facility] Urine Bacteria 4+ None Seen [facility] Hyaline Casts, Urine 0-2 0 - 2 /LPF [facility] 10/29/2024 5:25 PM EDT 10/29/2024 5:28 PM EDT Narrative [facility] - 10/29/2024 5:42 PM EDT Urine, Clean Catch us Generic External Data Provider LAB URINE ORDERAB LES Final Result [facility] [address] [place] [address] [phone] * (ABNORMAL) CBC auto differential (10/29/2024 5:17 PM EDT) White Blood Count 8.8 4.8 - 10.8 X10*3/uL [facility] Red Blood Count 4.30 4.20 - 5.50 X10*6/uL [facility] Hemoglobin 13.2 12.0 - 16.0 g/dl [facility] Hematocrit 38.8 37.0 - 47.0 % [facility] Mean Corpuscular Volume 90.2 80.0 - 98.0 fL [facility] Mean Corpuscular Hemoglobin 30.7 27.0 - 33.0 pg [facility] Mean Corpuscular HGB Conc 34.0 31.0 - 35.0 g/dl [facility] Red Cell Distribution Width 13.5 11.0 - 16.0 % [facility] Platelet Count 259 160 - 400 X10*3/uL [facility] Mean Platelet Volume 8.6(L) 9.4 - 12.3 fL [facility] Neutrophils Percent Auto 54.0 45 - 73 % [facility] Imm Gran Pct Auto 0.2 0.0 - 0.4 % [facility] Lymphocytes Percent Auto 36.8 20 - 40 % [facility] Monocytes Percent Auto 6.2 2 - 11 % [facility] Eosinophils Percent Auto 2.3 0 - 4 % [facility] Basophils Percent Auto 0.5 0 - 2 % [facility] NRBC Pct Auto 0.0 0.0 - 0.2 /100WBC [facility] Neutrophils Absolute Auto 4.7 2.0 - 8.3 x10*3/uL [facility] Imm Gran Abs Auto 0.02 0.00 - 0.03 X10*3/uL [facility] Lymphocytes Absolute Auto 3.2 1.2 - 4.9 X10*3/uL [facility] Monocytes Absolute Auto 0.5 0.1 - 1.2 X10*3/uL [facility] Eosinophils Absolute Auto 0.2 0.0 - 0.4 X10*3/uL [facility] Basophils Absolute Auto 0.0 0.0 - 0.2 X10*3/uL [facility] NRBC Abs Auto 0.000 0.0 - 0.012 X10*3/uL [facility] 10/29/2024 5:17 PM EDT 10/29/2024 5:20 PM EDT us Generic External Data Provider LAB BLOOD ORDERAB LES Final Result [facility] [address] [place] [address] [phone] * (ABNORMAL) Lipase (10/29/2024 5:17 PM EDT) Lipase 87(H) 8 - 78 U/L [facility] 10/29/2024 5:17 PM EDT 10/29/2024 5:20 PM EDT us Generic External Data Provider LAB BLOOD ORDERAB LES Final Result [facility] [address] [place] [address] [phone] * (ABNORMAL) Comprehensive Metabolic Panel (10/29/2024 5:17 PM EDT) Only the most recent of2 resultswithin the time period is included. Sodium 143 135 - 145 mmol/L [facility] Potassium 4.5 3.3 - 5.1 mmol/L [facility] Chloride 108 96 - 108 mmol/L [facility] Carbon Dioxide 28 22 - 29 mmol/L [facility] Anion Gap 12 12 - 20 [facility] Urea Nitrogen (BUN) 16 9 - 16 mg/dL [facility] Creatinine, Serum 0.67 0.5 - 1.4 mg/dL [facility] Creatinine Clr Calc Pharmacy 106.4 [facility] Comment:Provided height and weight: 160.02 cm,97 kg.eGFR (calculated from the MDRD study equation) and eCrCl(calculated from the Cockcroft-Gault equation) are based ondifferent parameters and may not yield comparable results.If eCrCl result is absurd, please check patient'sheight/weight. Estimated Glomerular Filt Rate >60 [facility] Comment:Chronic Kidney Disea se: Estimated GFR < 60 mL/min/1.36d3Zoyqrf Kidney Disease: Estimated GFR < 15 mL/min/1.73m2 Glucose 83 60 - 115 mg/dL [facility] Calcium 9.3 8.4 - 10.2 mg/dL [facility] Bilirubin, Total 0.2 0.0 - 1.0 mg/dL [facility] Aspartate Amino Transferase 23 5 - 31 U/L [facility] Alanine Aminotransferase 26 0 - 31 U/L [facility] Total Protein 7.2 6.5 - 8.0 g/dL [facility] Albumin Level 3.8 3.5 - 5.0 g/dL [facility] Alkaline Phosphatase 35(L) 39 - 117 U/L [facility] 10/29/2024 5:17 PM EDT 10/29/2024 5:20 PM EDT us Generic External Data Provider LAB BLOOD ORDERAB LES Final Result [facility] [address] [place] [address] [phone] * CT Abdomen Pelvis w/o Contrast (10/29/2024 4:58 PM EDT) Anatomical Region Laterality Modality Body, Pelvis, Abdomen Computed T omography 10/29/2024 4:58 PM EDT Narrative 10/29/2024 5:00 PM EDT ? [facility] ?[address] ?[place] [address] ? CT Scan Report ? Signed ? Patient: Darek Akhtar ?MR#: ?? [id number] ? : 1970 ?Acct:[id number] ? Age/Sex: 53 / F ?ADM Date: 10/29/24 ? Loc: HO.ED ? Attending Dr: ? Ordering Physician: Jasmin Walsh CNP ?? Date of Service: 10/29/24 ?? Procedure(s): CT abdomen pelvis wo IV con ?? Accession Number(s): [id number] ? cc: Jasmin Walsh CNP; Name,Chavo MCMILLAN ? Report Number: ?? [id number]: Total DLP = ??999.00 mGy-cm ? CLINICAL HISTORY: flank pain, dysuria, hematuria, history calculi ? CT abdomen and pelvis without IV contrast. ? COMPARISON: CT abdomen and pelvis dated 05/09/24 at 20:43 EDT ? FINDINGS: ?? Small hiatal hernia. ?? Hepatic steatosis. Liver is enlarged with right lobe measuring 24.1 cm. ?? Normal gallbladder. Noncontrast appearance of the spleen, pancreas and ?? adrenal glands are unremarkable. ?? No right-sided hydronephrosis. No right hydroureter. No right renal or ?? ureteral calculus. ?? No left-sided hydronephrosis. No left hydroureter. No left renal or ?? ureteral calculus. ? Appendix is not seen. Mild colonic stool burden. No bowel obstruction. ?? No mesenteric or retroperitoneal lymphadenopathy. ?? Mild aortoiliac atherosclerotic vascular calcifications. ? Urinary bladder is unremarkable given degree of distention. ?? No adnexal mass. ?? Vmax-cz-yohmyumj spondylosis. No acute fracture or suspicious osseous ?? abnormality. ? IMPRESSION: ?? 1. No evidence of renal obstruction. No renal or ureteral calculus ?? bilaterally. ?? 2. Hepatomegaly with hepatic steatosis. ? This document has been electronically signed by: Paul Whaley MD on ?? 10/29/2024 16:58:55 ? Dictated By: ?Paul Whaley MD ? Signed By: ?<Electronically signed by Paul Whaley MD in OV> ?10/29/24 1700 ? DD/ ? TD/TT: 10/29/248 ? Senior Media Buyer: ? Procedure Note Norma, Shweta - 10/29/[address] [place] [address] [address] Scan Report Signed Patient: Michael Akhtar#: [id number] : 1970Acct:[id number] Age/Sex: 53 / FADM Date: 10/29/24 Loc: .ED Attending Dr: Ordering Physician: Jasmin Walsh CNP Date of Service: 10/29/24 Procedure(s): CT abdomen pelvis wo IV con Accession Number(s): [id number] cc: Jasmin Walsh CNP; Name,Chavo MCMILLAN Report Number: [id number]: Total DLP = 999.00 mGy-cm CLINICAL HISTORY: flank pain, dysuria, hematuria, history calculi CT abdomen and pelvis without IV contrast. COMPARISON: CT abdomen and pelvis dated 05/09/24 at 20:43 EDT FINDINGS: Small hiatal hernia. Hepatic steatosis. Liver is enlarged with right lobe measuring 24.1 cm. Normal gallbladder. Noncontrast appearance of the spleen, pancreas and adrenal glands are unremarkable. No right-sided hydronephrosis. No right hydroureter. No right renal or ureteral calculus. No left-sided hydronephrosis. No left hydroureter. No left renal or ureteral calculus. Appendix is not seen. Mild colonic stool burden. No bowel obstruction. No mesenteric or retroperitoneal lymphadenopathy. Mild aortoiliac atherosclerotic vascular calcifications. Urinary bladder is unremarkable given degree of distention. No adnexal mass. Drjj-ok-mydgbmkk spondylosis. No acute fracture or suspicious osseous abnormality. IMPRESSION: 1. No evidence of renal obstruction. No renal or ureteral calculus bilaterally. 2. Hepatomegaly with hepatic steatosis. This document has been electronically signed by: Paul Whaley MD on 10/29/2024 16:58:55 Dictated By: Paul Whaley MD Signed By: <Electronically signed by Paul Whaley MD in OV> 10/29/24 1700 DD/ 57 TD/TT: 10/29/241657 Senior Media Buyer: [facility] External Provider IMG CT PROCEDURES Edited Result - Final * Albumin, Random Urine W/Creatinine (09/11/2024 8:31 AM EST) Creatinine, Urine 215.17 mg/dL [facility] Microalbumin Urine 16.0 mg/L [facility] Microalbum Creatinine Ratio Ur 7.4 <30 ug/mg cr [facility] Comment:Albumin/Creatinine R atio Reference Ranges: Normal: < 30 ug/mg creatinine Microalbuminuria: 30 - 300 ug/mg creatinineClinical Albuminuria: > 300 ug/mg creatinine Urine (Urine, Random) 09/11/2024 8:31 AM EST 09/11/2024 11:02 AM EST Chavo Fairbanks MD LAB URINE ORDERABLES Final Resul t [facility] [address] [place] [phone] * (ABNORMAL) Lipid Panel, Standard (09/11/2024 8:31 AM EST) Triglycerides 180(H) <150 mg/dL [facility] Comment:Desirable Triglyceri de: less than 150 mg/dLBorderline High Triglyceride 150-199 mg/dLHigh Triglyceride: 200-499 mg/dLVery High Triglyceride: greater than or equal to 5OO mg/dL Cholesterol 150 <200 mg/dL [facility] Comment:Desirable Cholestero l: less than 200 mg/dLBorderline High Cholesterol: 200-239 mg/dLHigh Cholesterol: greater than 239 mg/dL LDL Cholesterol Calculated 80 <100 mg/dL [facility] Comment:Desirable LDL: less than 100 mg/dLNear Optimal/Above Optimal LDL: 110- 129 mg/dLBorderline High LDL: 130-159 mg/dLHigh LDL: 160-189 mg/dLVery High LDL: greater than or equal to 190 mg/dL HDL Cholesterol 34(L) >40 mg/dL [facility] Comment:Desirable HDL: great er than 40 mg/dL Note: This HDL assay may give artificially low results in patients with liver disease. Blood Venous blood specimen / Unknown 09/11/2024 8:31 AM EST 09/11/2024 11:06 AM EST us Chavo Fairbanks MD LAB BLOOD ORDERABLES Final Resul t [facility] [address] [place] [phone] * POCT Glucose (09/06/2024 9:51 AM [...] EDT Narrative 03/06/2024 2:57 PM EDT ? [facility] ? [address] ?[place] [address] ? Mammography Report ? Signed ? Patient: Giovana,Lizaida ?MR#: ?? [id number] ? : 1970 ?Acct:[id number] ? Age/Sex: 53 / F ?ADM Date: 03/06/24 ? Loc: HO.MAMMO ? Attending : Chavo Fairbanks MD ? Ordering Physician: Chavo Fairbanks MD ?Results: 1Negative ? Date of Service: 03/06/24 ?Follow Up: 1 Year From Orig ?? inal Mammogram ? Procedure(s): MM tomosynthesis diagnostic BI ?? Accession Number(s): [id number] ? cc: Name,Chavo MCMILLAN ? EXAMINATION: ?? [...] and right breast ultrasound 10/02/2021 from ?? [facility]. ? TECHNIQUE: ?? Digital breast tomosynthesis [...] ? DD/ 1406 ? TD/TT: ? Senior Media Buyer: ? Procedure Note Donotfabianinterpreter, Image - 03/06/2024 [place] [facility] [address] [place], [place] [address] Mammography Report Signed Patient: Michael Akhtar#: [id number] : 1970Acct:[id number] Age/Sex: 53 / FADM Date: 03/06/24 Loc: HO.MAMMO Attending Dr: Chavo Fairbanks MD Ordering Physician: Chavo Fairbanks MDResults: 1Negative Date of Service: 03/06/24Follow Up: 1 Year From Orig ina Mammogram Procedure(s): MM tomosynthesis diagnostic BI Accession Number(s): [id number] cc: Chavo Fairbanks MD EXAMINATION: MM DIAGNOSTIC DIGITAL BREAST TOMOSYNTHESIS, BILATERAL US BREAST LIMITED, RIGHT MAMMOGRAPHY: CLINICAL INFORMATION: 53-year-old female complaining of right breast pain/palpable focus approximate 11:00 axis, anterior one third. As per technologist note, history of breast cancer in sister at age 48. COMPARISON: Bilateral Mammography and right breast ultrasound 10/02/2021 from [facility]. TECHNIQUE: Digital breast tomosynthesis is performed [...] OV> 03/06/24 1453 DD/ 1406 TD/TT: Senior Media Buyer: Chavo Name [facility] BI PROCEDURES Final Result * Hepatitis Panel, General (10/08/2023 9:30 AM EST) Hepatitis A IgM Nonreactive Nonreactive [facility] Comment:IgM antibodies to MASSEY V not detected; does not exclude earlyacute or recovered HAV infection. ~Hepatitis B Surface Antibody NONREACTIVE Nonreactive [facility] Comment:Nonreactive: < 8.00 mIU/mL Hepatitis B Core Antibody Nonreactive Nonreactive [facility] Hepatitis C Antibody Nonreactive Nonreactive [facility] Comment:Antibodies to HCV no t detected; does not exclude early acuteHCV infection. Hepatitis B Surface Ag Negative Negative [facility] Blood 10/08/2023 9:30 AM EST 10/08/2023 11:29 AM EST Katina Cabrera MD LAB BLOOD ORDERABLES Fin al Result [facility] [address] [place] [address] [phone] from Last 3 Months or Most Recently Relevant to Health Maintenance Insurance [facility] C3 HSN PARTIAL Care Teams Store Detective Relationship Specialty Start Date End Date Name, MD Chavo [address] [place] [address] PCP - General Internal Medicine 10/25/23 Gretchen Spears PharmD [address] [place] [address] Pharmacist Internal Medicine 11/25/23
--- OUTSIDE RECORDS SUMMARY | 2024-11-27 18:48 | XMS_ITS | Encounter Summary ---
Author Organization [employer] Address [address] [place] [address] [address] [place] [address] Care Team Providers Care Contact Centre Supervisor Name Role Phone Name, Chavo MCMILLAN Primary Care Provider Gretchen Spears PharmD Unavailable [phone] Reason for Referral * Consultation (Routine) - Closed Specialty Diagnoses / Procedures Referred By Contac t Referred To Contact Physical Therapy Diagnoses Acute left-sided low back pain without sciatica Brennan Buitrago MD [address] [place] [id number] Phone: tel: fax: [facility] Physical Therapy [address] [place] [address] Phone: tel: fax: Referral ID Status Reason Start Date Expiration Date V isits Requested Visits Authorized [id number] Closed Specialty Services Required 11/27/2024 11/27/2025 20 20 Reason for Visit * Reason Comments Back Pain Burning while urinating Encounter Details Date Type Department Care Team (Late st Contact Info) Description 11/27/2024 10:00 AM EDT Office Visit [facility] [address] [place] [id number] Brennan Buitrago MD [address] [place] [address] [phone] Dysuria (Primary Dx); Acute left-sided low back pain without sciatica; UTI symptoms Social History Tobacco Use Types Packs/Day Years [...] oz) 11/27/2024 10:00 A M EDT Height - - Body Mass Index 37.87 11/06/2024 11:24 AM EDT documented in this encounter Progress Notes * Brennan Buitrago MD - 11/27/2024 10:00 AM EDT Subjective Patient ID: Darek Frias is a 54 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 Coli. Was treated with Cefpodoxime 200mg PO BID for 10 days. WBC was within normal range. CT A/P showed no evidence of renal obstruction or calculus. Denies F/C/N/V/D. History of ureteral stone and stent placement (05/2024). Followed by Dr. Tse (Urology). Imaging was done due to left back pain. Diagnosed in [facility] with candidal vulvovaginitis and treated with Diflucan. Darek returns to walk-in clinic today because of 4 day h/o burning on urination, urgency, frequency. Has persistent left back pain that started prior to [facility] ED visit 10/29/2024. Back pain is worse withmovements of torso. + n/v last night when pain was bad . No fever, chills. Taking Tylenol with little relief of pain. Has catrachito't with Dr. Tse 01/22. Lives with daughter. LMP=years ago. Not employed. Former smoker. Patient Active Problem List Diagnosis Type 2 diabetes mellitus without complication (CMS/[facility]) Dizziness YESSICA (obstructive sleep apnea) Hyperlipidemia Obesity (BMI 30-39.9) Sebaceous gland hyperplasia Tinea corporis Recent urinary tract infection Vaginal candidiasis The following portions of the chart were reviewed this encounter and updated as appropriate: Tobacco Allergies Meds Problems Med Hx Surg Hx Fam Hx Review of Systems Constitutional: Negative for fever. Respiratory: Negative for shortness of breath. Cardiovascular: Negative for chest pain. Gastrointestinal: Positive for nausea and vomiting. Negative for abdominal pain. Genitourinary: Positive for dysuria, frequency and urgency. Negative for vaginal discharge. Musculoskeletal: Positive for back pain. Skin: Negative for rash. Neurological: Negative for headaches. Objective Physical Exam Constitutional: Appearance: Normal appearance. HENT: Right Ear: Tympanic membrane, ear canal and external ear normal. Left Ear: Tympanic membrane, ear canal and external ear normal. Nose: Nose normal. Mouth/Throat: Mouth: Mucous membranes are moist. Pharynx: Oropharynx is clear. Eyes: Conjunctiva/sclera: Conjunctivae normal. Pupils: Pupils are equal, round, and reactive to light. Cardiovascular: Rate and Rhythm: Normal rate and regular rhythm. Heart sounds: No murmur heard. Pulmonary: Effort: Pulmonary effort is normal. Breath sounds: Normal breath sounds. Abdominal: General: Abdomen is flat. Palpations: Abdomen is soft. Tenderness: There is no right CVA tenderness or left CVA tenderness. Musculoskeletal: General: Normal range of motion. Cervical back: No tenderness. Comments: Tenderness over the left lower lumbar area. Skin: Findings: No rash. Neurological: Mental Status: She is alert. Gait: Gait is intact. Psychiatric: Mood and Affect: Mood normal. Behavior: Behavior normal. Procedures Assessment/Plan Diagnoses and all orders for this visit: Dysuria U/a: + nitrite, + blood Urine C&S pending. Left back pain appears to be lower lumbar pain, not flank pain, but will treat for possible pyelonephritis. Prescribed Augmentin and Diflucan (h/o Candidal vulvovaginitis with some antibiotics). Rtc if not improving. Acute left-sided low back pain without sciatica Prescribed lidocaine patches, Tylenol, tizanidine. Referred to physical therapy. Return to clinic if not improving - POCT urinalysis dipstick manually resulted - Culture, Urine, Routine Other orders - lidocaine (Lidoderm) 5 % patch; Apply 1 patch topically Once per day. Remove & discard patch within 12 hours or as directed by MD. - acetaminophen (Tylenol) 325 MG tablet; Take 2 tablets (650 mg) by mouth every 6 (six) hours if needed for moderate pain. OTC - tiZANidine (Zanaflex) 2 MG tablet; Take 1 tablet (2 mg) by mouth every 6 (six) hours if needed for muscle spasms for up to 10 days. - fluconazole (Diflucan) 150 MG tablet; Take 1 tablet (150 mg) by mouth Once per day for 1 dose. Prn vaginal yeast infection - amoxicillin-clavulanate (Augmentin) 875-125 MG tablet; Take 1 tablet by mouth 2 times daily for 7days. documented in this encounter Plan of Treatment Upcoming Encounters Date Type Department Care Team (Late st Contact Info) Description 12/01/2024 9:30 AM EDT Office Visit [facility] [address] [place] [phone] Ayah Kerns MD [address] [place] [address] [phone] 01/24/2025 4:00 PM EDT Office Visit [facility] [address] [place] [address] [phone] Name, MD Chavo [address] [place] [phone] Scheduled Orders Name Type Priority Associated Diagnoses Orde r Schedule Culture, Urine, Routine Microbiology Routine UTI symptoms Ordered: 11/27/2024 Scheduled Referrals Name Type Priority Associated Diagnoses Orde r Schedule Referral to Physical Therapy Outpatient Referral Routine Acute left-sided low back pain without sciatica Expected: 11/27/2024 (Approximate), Expires: 11/27/2025 documented as of this encounter Goals Goal Patient Goal Type Associated Problems Recent Progress Patient-Stated? Author Hemoglobin A1c < 7 Result Component 5.7( 11:53 AM EDT) No Puia, Gretchen, PharmD Record your blood sugar as directed Result Component No Puia, Gretchen, PharmD documented as of this encounter Procedures Procedure Name Priority Date/Time Associated Diagnosis Comments POCT URINALYSIS DIPSTICK Routine 11/27/2024 10:08 AM EDT UTI symptoms documented in this encounter Results * (ABNORMAL) POCT urinalysis dipstick manually resulted (11/27/2024 10:08 AM EDT) Color, UA Yellow Clarity, UA Clear Glucose, [...] documented in this encounter Visit Diagnoses Diagnosis Dysuria- Primary Acute left-sided low back pain without sciatica UTI symptoms documented in this encounter Additional Health Concerns Assessment Noted Time PHQ-9 Depression Total Score: 0 10/25/19 24 1:07 PM EDT documented as of this encounter Care Teams Contact Centre Supervisor Relationship Specialty Start Date End Date Name, MD Chavo [address] [place] [address] PCP - General Internal Medicine 10/25/23 Gretchen Spears PharmD [address] [place] [phone] Pharmacist Internal Medicine 11/25/23 documented as of this encounter
--- OUTSIDE RECORDS SUMMARY | 2024-11-27 18:48 | XMS_ITS | Encounter Summary ---
Author Organization [employer] Address [address] [place] [address] 7[address] [place] [address] Care Team Providers Care Lottery Sales Clerk Name Role Phone Name, Chavo MCMILLAN Primary Care Provider [phone] Gretchen Spears PharmD Unavailable [phone] Reason for Visit * Reason Onset Date Comments Med Refill 08/05/2024 Encounter Details Date Type Department Care Team (Late st Contact Info) Description 08/05/2024 Refill [facility] [address] [place], [place] [phone] Name, MD Chavo [address] [place] [address] Social History Tobacco Use Types Packs/Day Years [...] Description 12/01/2024 9:30 AM EDT Office Visit [facility] [address] [place] [phone] Ayah Kerns MD [address] [place] [phone] 01/24/2025 4:00 PM EDT Office Visit [facility] [address] [place] [phone] NameChavo MD [address] [place] [phone] documented as of this encounter Goals Goal [...] documented as of this encounter Care Teams Lottery Sales Clerk Relationship Specialty Start Date End Date NameChavo MD [address] [place] [phone] PCP - General Internal Medicine 10/25/23 Gretchen Spears, Debo [address] [place] [address] Pharmacist Internal Medicine 11/25/23 documented as of this encounter
== END 2024-11-27 16:08 | disposition home or self-care (01) ==
LOC: HO.HHCLNP 16:07
PROVIDERS: Visit Provider Emergency Medicine
DX: R39.9 Unspecified symptoms and signs involving the genitourinary system (principal)
CPT/HCPCS: 87086; 87088; 87186

== ENCOUNTER 2025-02-05 13:57 | Outpatient (REF) | payer MEDICAID, SELFPAY ==
--- NOTE | ~2025-02-05 | US_ITS ---
EXAMINATION: US KIDNEY BILATERAL HISTORY: N20.0 - Calculus of kidney TECHNIQUE: Real-time grayscale ultrasound imaging of the kidneys was performed and images were reviewed. COMPARISON: Comparison is made with the prior examination dated 07/11/2024. FINDINGS: Right kidney: The right kidney measures 12.9 x 6.5 x 5.0 cm. Renal parenchymal echotexture and thickness are normal. There are no masses. There is no hydronephrosis or renal calculi. Left Kidney: The left kidney measures 11.0 x 5.6 x 4.8 cm. Renal parenchymal echotexture and thickness are normal. There are no masses. There is mild fullness of the renal pelvis without hydronephrosis. US/US renal BI IMPRESSION: No evidence of nephrolithiasis. Electronically signed by: Emeka Webber MD 02/05/2025 02:36 PM EDT
--- OUTSIDE RECORDS SUMMARY | 2025-02-05 14:25 | XMS_ITS | Encounter Summary ---
Author Organization [employer] Address [address] [place] [address] 7[address] [place] [address] Care Team Providers Care Steel Die Engraver Name Role Phone Name, Chavo MCMILLAN Primary Care Provider [phone] Gretchen Spears PharmD Unavailable [phone] Encounter Details Date Type Department Care Team (Late st Contact Info) Description 12/08/2024 Orders Only [facility] [address] [place] [address] ProviderHannah MD Social History Tobacco Use Types Packs/Day Years Used Date Smoking Tobacco: Former Cigarettes Smokeless Tobacco: Never Alcohol Use Standard Drinks/Week [...] Care Team (Late st Contact Info) Description 05/30/2025 9:30 AM EDT Office Visit [facility] [address] [place], [place] [phone] Pearl Buckley, OD [address] [place] [address] documented as of this encounter Goals Goal Patient Goal Type Associated Problems Recent Progress Patient-Stated? Author Hemoglobin A1c < 7 Result Component 6(01/24/2025 4:19 PM EDT) No Puia, Gretchen, PharmD Record your blood sugar as directed Result Component No Puia, Gretchen, PharmD documented as of this encounter Procedures Procedure Name Priority Date/Time Associated Diagnosis Comments DERMATOPATHOLOGY REPORT Routine 12/01/2024 2:05 PM EDT documented in this encounter Results * Dermatopathology Report (12/01/2024 2:05 PM EDT) us Historical Provider LAB BLOOD ORDERABLES Lia l Result documented in this encounter Visit Diagnoses Not on filedocumented in this encounter Additional Health Concerns Assessment Noted Time PHQ-9 Depression Total Score: 0 10/25/19 24 1:07 PM EDT documented as of this encounter Care Teams Steel Die Engraver Relationship Specialty Start Date End Date Name, MD Chavo [address] [place], [place] [phone] PCP - General Internal Medicine 10/25/23 Puia, Gretchen, PharmD [address] [place], [place] [phone] Pharmacist Internal Medicine 11/25/23 documented as of this encounter
== END 2025-02-05 13:58 | disposition home or self-care (01) ==
LOC: HO.US 13:57
PROVIDERS: PCP Internal Medicine Geriatric Medicine; Visit Provider Nurse Practitioner Family
DX: N20.0 Calculus of kidney (principal)
CPT/HCPCS: 76775

== ENCOUNTER → 2025-02-05 14:01 | Outpatient (BNV) | payer MEDICAID, SELFPAY | PROVIDERS: PCP Internal Medicine Geriatric Medicine; Visit Provider Radiology Diagnostic Radiology | DX: N20.0 Calculus of kidney (principal) | CPT/HCPCS: 76775 ==

== ENCOUNTER 2025-02-08 20:57 | Emergency (ER) | payer MEDICAID, SELFPAY ==
--- NOTE | ~2025-02-08 | CT_ITS ---
CLINICAL HISTORY: right flank pain --- Additional Notes or Special Instructions: renal colic? CT abdomen and pelvis without contrast Comparison: CT of the abdomen and pelvis from 10/29/2024 Findings: No consolidation of the imaged lung bases. Steatotic change of the hepatosplenomegaly redemonstrated with spleen measuring 13.3 cm. Adrenal glands appear unchanged, with phleboliths cm left myelolipoma. Mild volume loss of the pancreas noted. No obstructing stone of either kidney or either imaged ureter. Phleboliths are redemonstrated pelvis. Additional vascular calcifications again noted. Small mesenteric and periaortic lymph nodes are nonspecific and may be reactive. No small bowel obstruction. Severe stool burden present, including the cecum. The appendix is within normal limits (imaged 43 of series 7). Wall thickening of the large intestine is nonspecific in to underdistention, including descending colon and sigmoid colon. The uterus is anteverted. No adnexal soft tissue mass by CT. Question left fibroid from dome of the uterus measuring proximally 2.[address] Urinary bladder is unremarkable. Bilateral pelvis deformities are redemonstrated appear old/chronic. Moderate osteoarthritis of the both hips. Degenerative changes include facet arthropathy of the imaged spine. IMPRESSION: 1. No obstructing stone of either kidney or either ureter. 2. Steatotic change of the liver. 3. Mild splenomegaly. 4. Severe stool burden. No small bowel obstruction. This document has been electronically signed by: Chauncey Ibrahim MD on 02/09/2025 02:16:36
[2025-02-08 21:07] VITALS: BP 140/64; PULSE 89; RESP 16; TEMP 36.6; O2SAT 99; BMI 38.4
[2025-02-08 21:41] LABS: MANUAL DIFF FLAG NO
[2025-02-08 21:43] LABS: Hematocrit 41.2 % (37.0-47.0); Hemoglobin 14.2 g/dl (12.0-16.0); Imm Gran Abs Auto 0.01 X10*3/uL (0.00-0.03); Imm Gran Pct Auto 0.1 % (0.0-0.4); Lymphocytes Absolute Auto 3.0 X10*3/uL (1.2-4.9); Mean Corpuscular HGB Conc 34.5 g/dl (31.0-35.0); Mean Corpuscular Hemoglobin 30.2 pg (27.0-33.0); Mean Corpuscular Volume 87.7 fL (80.0-98.0); NRBC Abs Auto 0.000 X10*3/uL (0.0-0.012); NRBC Pct Auto 0.0 /100WBC (0.0-0.2); Platelet Count 272 X10*3/uL (160-400); Red Blood Count 4.70 X10*6/uL (4.20-5.50); White Blood Count 8.5 X10*3/uL (4.8-10.8)
[2025-02-08 22:00] LABS: Alanine Aminotransferase 52 U/L (0-31); Albumin Level 4.4 g/dL (3.5-5.0); Alkaline Phosphatase 35 U/L (39-117); Anion Gap 15 (12-20); Aspartate Amino Transferase 37 U/L (5-31); Blood Urea Nitrogen 17 mg/dL (9-16); Calcium 9.3 mg/dL (8.4-10.2); Carbon Dioxide 29 mmol/L (22-29); Chloride 101 mmol/L (96-108); Creatinine Clr Calc Pharmacy 101.4; Estimated Glomerular Filt Rate > 60; Potassium 4.1 mmol/L (3.3-5.1); Sodium 141 mmol/L (135-145); Total Protein 7.8 g/dL (6.5-8.0)
[2025-02-09 00:41] LABS: Appearance Urine Clear; Glucose Urine UA >=1000 mg/dL (Negative); PH 6.0 (5.0-9.0); Specific Gravity - Urine >= 1.030 (1.005-1.025); UMIC TRIGGER UACC YES
[2025-02-09 00:56] LABS: UACC Culture Trigger YES
[2025-02-09 02:36] VITALS: BP 136/75; PULSE 86; RESP 16; TEMP 36.8; O2SAT 97
[2025-02-09 04:00] VITALS: BP 117/74; PULSE 86; RESP 16; TEMP 36.9; O2SAT 96
--- NOTE | 2025-02-09 04:11 | ED.GENADULT ---
HPI - General Adult General Chief complaint: Abdominal Pain Stated complaint: back pain Time Seen by Provider: 02/09/25 00:22 Source: patient Limitations: no limitations History of Present Illness ED Provider: Raissa Garcia PA-C HPI narrative: 54-year-old female with a history of obesity, diabetes, hyperlipidemia, and kidney stone who presents with right flank pain x2 days. Pain originates in right mid back, and wraps around to right flank and abdomen at times. Unable to describe the nature of her pain. Associated nausea. Denies hematuria, dysuria, fever or active vomiting. Related Data Home Medications ?Medication ?Instructions ?Recorded ?Confirmed atorvastatin 20 mg tablet 20 mg PO DAILY 05/10/24 09/25/24 cholecalciferol (vitamin D3) 50 50 mcg PO QAM 05/10/24 09/25/24 mcg (2,000 unit) capsule (Vitamin D3) dapagliflozin propaned 5 2 tab PO DAILY 05/10/24 09/25/24 mg-metformin ER 1,000 mg tablet, ext rel 24hr (Xigduo XR) dulaglutide 0.75 mg/0.5 mL 0.75 mg subcut ORO 05/10/24 09/25/24 subcutaneous pen injector (Trulicity) Previous Rx's ?Medication ?Instructions ?Recorded cyclobenzaprine 10 mg tablet 10 mg PO TID PRN muscle spasm #7 04/20/24 tabs cefpodoxime 200 mg tablet 200 mg PO BID #20 tabs 10/29/24 meloxicam 15 mg tablet 15 mg PO DAILY #7 tabs 02/09/25 Allergies Allergy/AdvReac Type Severity Reaction Status Date / Time No Known Allergies Allergy Verified 02/08/25 21:08 Review of Systems Review of Systems: Yes all other systems are reviewed and are negative Constitutional: Constitutional: Denies fatigue and Denies fever(s) Cardiovascular: Cardiovascular: Denies chest pain and Denies dyspnea Respiratory: Respiratory: Denies dyspnea Gastrointestinal: Gastrointestinal: Reports abdominal pain, Reports nausea and Denies vomiting Genitourinary: Genitourinary: Denies hematuria, Denies dysuria and Reports flank pain Endocrine: Endocrine: Denies fatigue PMFSH Past Medical History Attestation statement: The following information was validated with the patient. Medical History YESSICA on CPAP Type 2 diabetes mellitus without complications HLD (hyperlipidemia) Surgical History Previous section Social History Social History (Updated 09/25/24 @ 14:21 by Eli Villeda Norman) Household Members: Children Household Members Other:: daughter in her 30s Housing: House Do you presently have visiting nurse or other home services: No Unable to assess alcohol history related to: Unknown Alcohol intake: never Patient Tobacco Use Status: Never used Tobacco Smoked in Last 30 Days: No Use of substances other than those prescribed or required for medical reasons: No Advance Directives: No Patient : No Current occupational status: unemployed Current occupation: right hand dominant Physical Exam ED Vital Signs: Vital Signs - 24 hr 02/08/25 21:07 02/09/25 02:36 Temperature 97.8 F 98.3 F Pulse Rate 89 86 Respiratory Rate 16 16 Blood Pressure 140/64 H 136/75 Pulse Oximetry 99 97 Oxygen Delivery Method Room Air Room Air BMI result Body Mass Index 38.4 Const Other: Alert Orientation/consciousness: patient oriented x3 Resp Effort & Inspection: normal respiratory effort Cardio Other: Normal peripheral perfusion GI Other: Abdomen is soft, nondistended obese nontender Back/Spine/Pelvis Other: Right CVA tenderness Skin Other: Warm dry no rash Neuro General: patient oriented x3, gait normal, no focal motor deficits and CN's II-XI intact bilaterally Psych Other: Cooperative Medications Administered Discontinued Medications Generic Name Dose Route Start Last Admin Trade Name Freq PRN Reason Stop Dose Admin Ketorolac Tromethamine 15 mg 02/09/25 00:30 02/09/25 01:35 Ketorolac Tromethamine 15 Mg/Ml Vial IVPUSH 02/09/25 00:31 15 mg ONCE ONE Administration Ondansetron HCl 4 mg 02/09/25 00:30 02/09/25 01:35 Ondansetron Hcl 4 Mg/2 Ml Vial IVPUSH 02/09/25 00:31 4 mg ONCE ONE Administration Medical Decision Making Medical Decision Making MDM Narrative: 54-year-old female with a history of obesity, diabetes, hyperlipidemia, and kidney stone who presents with right flank pain x2 days. Pain originates in right mid back, and wraps around to right flank and abdomen at times. Unable to describe the nature of her pain. Associated nausea. Denies hematuria, dysuria, fever or active vomiting. Problem: Obesity, diabetes, kidney stones History: Per patient I have considered the following differential diagnoses: Pyelonephritis, renal colic, UTI, biliary pathology, musculoskeletal strain Plan: Given distribution of discomfort in nature of symptoms, I am considering renal colic. Although she appears well, not extremely uncomfortable, as people typically do amidst renal colic. Obtaining a CT scan, giving Toradol morphine Zofran for discomfort. Giving right-sided symptoms, this could be underlying biliary pathology, although she has no focal right upper quadrant pain on exam. Thought about pyelonephritis given positive CVA tenderness, UA pending. And again she denies related symptoms. Labs: No leukocytosis, not anemic, no electrolyte abnormality, urine not infected no blood CT abdomen and pelvis:IMPRESSION: 1. No obstructing stone of either kidney or either ureter. 2. Steatotic change of the liver. 3. Mild splenomegaly. 4. Severe stool burden. No small bowel obstruction. Lab Data 02/08/25 21:35 02/08/25 21:35 Labs: Lab Results 02/08/25 02/09/25 Range/Units 21:35 00:33 WBC 8.5 (4.8-10.8) X10*3/uL RBC 4.70 (4.20-5.50) X10*6/uL Hgb 14.2 (12.0-16.0) g/dl Hct 41.2 (37.0-47.0) % MCV 87.7 (80.0-98.0) fL MCH 30.2 (27.0-33.0) pg MCHC 34.5 (31.0-35.0) g/dl RDW 13.3 (11.0-16.0) % Plt Count 272 (160-400) X10*3/uL MPV 8.4 L (9.4-12.3) fL Immature Gran % (Auto) 0.1 (0.0-0.4) % Neut % (Auto) 55.1 (45-73) % Lymph % (Auto) 35.6 (20-40) % [place] % (Auto) 6.4 (2-11) % Eos % (Auto) 2.4 (0-4) % Baso % (Auto) 0.4 (0-2) % Lymph # (Auto) 3.0 (1.2-4.9) X10*3/uL [place] # (Auto) 0.5 (0.1-1.2) X10*3/uL Eos # (Auto) 0.2 (0.0-0.4) X10*3/uL Baso # (Auto) 0.0 (0.0-0.2) X10*3/uL Abs Immat Gran (auto) 0.01 (0.00-0.03) X10*3/uL Absolute Neuts (auto) 4.7 (2.0-8.3) x10*3/uL Absolute Nucleated RBC 0.000 (0.0-0.012) X10*3/uL Nucleated RBC % (auto) 0.0 (0.0-0.2) /100WBC Sodium 141 (135-145) mmol/L Potassium 4.1 (3.3-5.1) mmol/L Chloride 101 (96-108) mmol/L Carbon Dioxide 29 (22-29) mmol/L Anion Gap 15 (12-20) BUN 17 H (9-16) mg/dL Creatinine 0.70 (0.5-1.4) mg/dL Estim Creat Clear Calc 101.4 Estimated GFR > 60 Random Glucose 110 (60-115) mg/dL Calcium 9.3 (8.4-10.2) mg/dL Total Bilirubin 0.3 (0.0-1.0) mg/dL AST 37 H (5-31) U/L ALT 52 H (0-31) U/L Alkaline Phosphatase 35 L (39-117) U/L Total Protein 7.8 (6.5-8.0) g/dL Albumin 4.4 (3.5-5.0) g/dL Urine Color Yellow Urine Appearance Clear Urine pH 6.0 (5.0-9.0) Ur Specific [place] >= 1.030 H (1.005-1.025) Urine Protein Negative (Neg-Trace) mg/dL Urine Glucose (UA) >=1000 H (Negative) mg/dL Urine Ketones Trace (Negative) mg/dL Urine Blood Negative (Negative) Urine Nitrite Negative (Negative) Ur Leukocyte Esterase Negative (Negative) Urine RBC 0-2 (0-2) /HPF Urine WBC 6-10 H (0-5) /HPF Ur Squamous Epith Cells 6-10 (0-2) /HPF Urine Bacteria 1+ (None Seen) Hyaline Casts 0-2 (0-2) /LPF Discharge Plan Discharge Clinical Impression: Constipation, Osteoarthritis Patient Disposition: Home, Self-Care Instructions: Constipation (ED), Osteoarthritis (ED) Additional Instructions: All of your screening labs were normal. The CT scan revealed that you were very constipated, and that you have arthritic changes of the spine and the hips. See home care instructions. Use the meloxicam as directed for your arthritis, take it with food. Purchase [id number] Colace, this is a stool softener, take it twice a day. Purchase [id number] MiraLax, drink it 3 to 4 times a day, until you regulate your bowel habits. You should have multiple large volume bowel movements. Once you clear your stool burden, use the Colace daily, use the MiraLax daily, to help maintain regularity. Follow up with your primary care provider as needed. Prescriptions: New meloxicam 15 mg tablet 15 mg PO DAILY Qty: 7 0RF No Action cyclobenzaprine 10 mg tablet 10 mg PO TID PRN (Reason: muscle spasm) Qty: 7 0RF cefpodoxime 200 mg tablet 200 mg PO BID Qty: 20 0RF Rx Instructions: must administer with a meal/food atorvastatin 20 mg tablet 20 mg PO DAILY cholecalciferol (vitamin D3) [Vitamin D3] 50 mcg (2,000 unit) capsule 50 mcg PO QAM Trulicity 0.75 mg/0.5 mL pen injector 0.75 mg subcut ORO dapaglifloz propaned-metformin [Xigduo XR] 5-1,000 mg tablet, IR - ER, biphasic 24hr 2 tab PO DAILY Print Language: Botswanan
[2025-02-09 04:54] VITALS: BP 117/74; PULSE 86; RESP 16; TEMP 36.9; O2SAT 96
== END 2025-02-09 04:55 | disposition home or self-care (01) ==
PROVIDERS: Emergency Provider Emergency Medicine; PCP Internal Medicine Geriatric Medicine
DX: K59.00 Constipation, unspecified (principal); M16.0 Bilateral primary osteoarthritis of hip; M47.899 Other spondylosis, site unspecified; R10.9 Unspecified abdominal pain; E11.9 Type 2 diabetes mellitus without complications; E78.5 Hyperlipidemia, unspecified; Z87.442 Personal history of urinary calculi; Z79.02 Long term (current) use of antithrombotics/antiplatelets; Z79.85 Long-term (current) use of injectable non-insulin antidiabetic drugs
CPT/HCPCS: 36415; 74176; 80053; 81001; 85025; 87086; 96374; 96375; 99284; J1885; J2405

== ENCOUNTER → 2025-02-09 00:28 | Outpatient (BNV) | payer MEDICAID, SELFPAY | PROVIDERS: PCP Internal Medicine Geriatric Medicine; Visit Provider Radiology Neuroradiology | DX: R16.2 Hepatomegaly with splenomegaly, not elsewhere classified (principal) | CPT/HCPCS: 74176 ==

== ENCOUNTER 2025-02-22 10:50 | Outpatient (AMB) | payer MEDICAID, SELFPAY ==
--- NOTE | 2025-02-22 10:52 | MHC.OFFVIS ---
Intake Visit Reasons: 6m/US(set) Intake Note: Patient is present for 6M/US Urology Medication:NONE Antibiotic Allergy:NONE Blood Thinner:NONE Mobile Phone Salesperson Required: No Mobile Phone Salesperson Name: [id number] Allergies No Known Allergies Allergy (Verified 02/22/25 13:23) Medication List - Last Reconciled 02/22/25 by SRUTHI Harris atorvastatin 20 mg PO DAILY cholecalciferol (vitamin D3) (Vitamin D3) 50 mcg PO QAM dulaglutide (Trulicity) 0.75 mg subcut ORO metformin 1,000 mg PO BID HPI Comments Details: Darek is a very pleasant 54-year-old female patient of Dr. Fairbanks who is accompanied by her daughter at todays office visit. She has a past medical history of type 2 diabetes, obstructive sleep apnea, and hyperlipidemia. She presents to the office today for follow-up of her nephrolithiasis. In discussion with the patient today she reports she has been having ongoing right-sided flank pain and has seeked emergency room care services earlier this month at which time a CT was ordered and performed. These results were reviewed and communicated with the patient today. 02/23 no nephrolithiasis or obstructing stones of either kidneys. Severe stool burden. No small-bowel obstruction. She reports having had labs and noting elevated liver enzymes in his due to follow-up with her PCP earlier next week regarding this issue. She does continue to experience right-sided flank pain. However no CVA tenderness noted on exam today. We did discuss potential causes of flank pain. We did discuss increase in stool burden. She does report she is having bowel movements and passing gas. In office urinalysis results reviewed with the patient today. Negative leukocytes negative nitrates, pH 6.0 3+ glucosuria. We did discussed the importance of adequate hydration in relation to nephrolithiasis as well as overall health and well-being. Of note, patient underwent left-sided cystoscopy, left retrograde, left dilatation of ureteric orifice under fluoroscopy, left ureteroscopy, laser lithotripsy, stone basketing, and left stent placement with Dr. Tse 05/10/24 for distal left 6 mm ureteric stone. She currently denies any bothersome urinary issues. She denies urinary urgency, urinary frequency, incontinence, nocturia, hematuria, dysuria, foul smelling urine, changes to urinary stream, fever, and or chills. She is happy with her current voiding parameters. She otherwise offers no other issues or concerns at this time. [facility] Medical History YESSICA on CPAP Type 2 diabetes mellitus without complications HLD (hyperlipidemia) Surgical History Previous section Social History (Updated 09/25/24 @ 14:21 by Eli Villeda [facility]) Household Members: Children Household Members Other:: daughter in her 30s Housing: House Do you presently have visiting nurse or other home services: No Unable to assess alcohol history related to: Unknown Alcohol intake: never Patient Tobacco Use Status: Never used Tobacco Current occupational status: unemployed Current occupation: right hand dominant Review of Systems Const All systems reviewed & are unremarkable except as noted in HPI and below Physical Exam Const General: cooperative, healthy appearing, comfortable, no acute distress, well developed, alert and awake Orientation/consciousness: patient oriented x3 Limitations: language barrier HEENT Head: Yes normal to inspection, Yes normocephalic and Yes atraumatic Ears: hearing grossly normal bilaterally Eyes General: appearance normal, both eyes and all related structures Neck Neck: Yes normal visual inspection and Yes trachea midline Chest Chest palpation & inspection: normal inspection of the chest Resp Effort & Inspection: normal respiratory effort and able to speak in complete sentences Cardio Rate: regular rate GI Inspection: Yes normal to inspection General: Yes no CVA tenderness External Female Exam: normal external appearance Speculum Exam - Vagina: normal appearance of the vagina Back/Spine/Pelvis Back: no CVA tenderness Skin General skin exam: no rashes or lesions noted Neuro General: patient oriented x3 Extrem General: Yes normal to inspection Psych Appearance: grossly normal and well kempt Mental Status: mental status grossly normal Speech and movement: Normal speech and movement present and Clear speech present Affect: normal affect Attitude: cooperative Thought process: Normal thought process present Thought content: Normal thought content present Insight: Fair insight present (Psych) Judgement: Fair judgement present (Psych) Results AMB Urinalysis, Automated UA Leukoctes 0 Kaelyn/uL Last Edit by MARY Davey on 02/22/25 11:05 UA Nitrite Negative Last Edit by MARY Davey on 02/22/25 11:05 UA Urobilinogen 0.2 mg/dL Last Edit by MARY Davey on 02/22/25 11:05 UA Protein 0 mg/dL Last Edit by MARY Davey on 02/22/25 11:05 UA pH 6.0 Last Edit by Chuy Villarreal CCM on 02/22/25 11:05 UA Blood 0 Domo/uL Last Edit by MARY Davey on 02/22/25 11:05 UA Specific [place] 1.020 Last Edit by Chuy Villarreal CCM on 02/22/25 11:05 UA Ketone Negative Last Edit by MARY Davey on 02/22/25 11:05 UA Bilirubin 0 mg/dL Last Edit by [facility]real [facility] on 02/22/25 11:05 UA Glucose 1000 mg/dL Last Edit by Chuy Villarreal [facility] on 02/22/25 11:05 Results Reviewed Results Reviewed: Laboratory Last Values Urine pH (Auto) 6.0 02/22/25 11:04 Specific [place] (Auto) 1.020 02/22/25 11:04 Urine Protein (Auto) 0 mg/dL 02/22/25 11:04 Glucose (UA)(Auto) 1000 mg/dL 02/22/25 11:04 Urine Ketones (Auto) Negative 02/22/25 11:04 Urine Blood (Auto) 0 Domo/uL 02/22/25 11:04 Urine Nitrite (Auto) Negative 02/22/25 11:04 Urine Bilirubin (Auto) 0 mg/dL 02/22/25 11:04 Urine Urobilinogen (Auto) 0.2 mg/dL 02/22/25 11:04 Leukocyte Esterase (Auto) 0 Kaelyn/uL 02/22/25 11:04 Date of Service: 02/09/25 Procedure(s): CT abdomen pelvis wo IV con Findings: No consolidation of the imaged lung bases. Steatotic change of the hepatosplenomegaly redemonstrated with spleen measuring 13.3 cm. Adrenal glands appear unchanged, with phleboliths cm left myelolipoma. Mild volume loss of the pancreas noted. No obstructing stone of either kidney or either imaged ureter. Phleboliths are redemonstrated pelvis. Additional vascular calcifications again noted. Small mesenteric and periaortic lymph nodes are nonspecific and may be reactive. No small bowel obstruction. Severe stool burden present, including the cecum. The appendix is within normal limits (imaged 43 of series 7). Wall thickening of the large intestine is nonspecific in to underdistention, including descending colon and sigmoid colon. The uterus is anteverted. No adnexal soft tissue mass by CT. Question left fibroid from dome of the uterus measuring proximally 2.[address] Urinary bladder is unremarkable. Bilateral pelvis deformities are redemonstrated appear old/chronic. Moderate osteoarthritis of the both hips. Degenerative changes include facet arthropathy of the imaged spine. IMPRESSION: 1. No obstructing stone of either kidney or either ureter. 2. Steatotic change of the liver. 3. Mild splenomegaly. 4. Severe stool burden. No small bowel obstruction. Date of Service: 02/05/25 Procedure(s): US renal BI FINDINGS: Right kidney: The right kidney measures 12.9 x 6.5 x 5.0 cm. Renal parenchymal echotexture and thickness are normal. There are no masses. There is no hydronephrosis or renal calculi. Left Kidney: The left kidney measures 11.0 x 5.6 x 4.8 cm. Renal parenchymal echotexture and thickness are normal. There are no masses. There is mild fullness of the renal pelvis without hydronephrosis. IMPRESSION: No evidence of nephrolithiasis. Assessment & Plan Assessment & Plan (1) Flank pain: Code(s): R10.9 - Unspecified abdominal pain Category: Medical (2) Nephrolithiasis: Code(s): N20.0 - Calculus of kidney Category: Medical Plan In office urinalysis results with the patient today; as noted above. Recent CT and renal ultrasound results reviewed with the patient today; as noted above. Recent renal imaging results reviewed with the patient today; as noted above. Continue to follow-up with PCP as planned. We discussed the importance of adequate hydration relation to nephrolithiasis as well as overall health and well-being. All questions were answered. Will continue with surveillance monitoring. We did discussed potential causes of flank pain patient is experiencing although on exam it appears patient with musculoskeletal discomfort. Will obtain renal ultrasound in 6 months. Follow-up in 6 months with imaging to be completed prior; or sooner with any issues, concerns, and or questions. Orders: Orders AMB Urinalysis Automated Today Z13.9 - Encounter for screening, unspecified US renal BI 6 Months N20.0 - Calculus of kidney Patient Instructions: The patient had an opportunity to ask questions regarding the treatment plan. All questions were answered. Physical exam, labs, and imaging were discussed and reviewed in detail. As well as risks, benefits, and discussion of treatment choices. No major barriers to understanding were identified. The patient expressed understanding and agreement with the above treatment plan. The patient was made aware they should contact our office by phone for worsening of their current condition, the appearance of new symptoms, or with any questions or concerns. Compliance is encouraged with any medications and follow up testing that is ordered. It is a privilege to be allowed the opportunity to participate in? your urological care.? Again, if you have any questions or concerns If you have any questions or concerns please do not hesitate to contact me. The office is [phone]. This note is constructed using voice recognition software. While every effort has been made to ensure accuracy mixing and dispensing supervisor errors may have been included. Yours sincerely, SRUTHI Harris Coding Level of Care Code Est Pt Level 3 (31300) Complex EM visit Add On G2211 Diagnoses Flank pain R10.9 Nephrolithiasis N20.0
--- OUTSIDE RECORDS SUMMARY | 2025-02-22 11:42 | XMS_ITS | Encounter Summary ---
Author Organization [employer] Address [address] [place] [address] [address] [place] [address] Care Team Providers Care Poultry Feed Supervisor Name Role Phone Name, Chavo MCMILLAN Primary Care Provider Gretchen Spears PharmD Unavailable [phone] Encounter Details Date Type Department Care Team (Late st Contact Info) Description 12/08/2024 Orders Only [facility] [address] [place] [address] ProviderHannah MD Social History Tobacco Use Types [...] Care Team (Late st Contact Info) Description 02/26/2025 3:30 PM EDT Office Visit [facility] [address] [place] [address] Dary Lozano NP [address] [place] [address] 05/30/2025 9:30 AM EDT Office Visit [facility] [address] [place] [address] Marcio, Pearl, OD [address] [place] [address] documented as of this encounter Goals Goal [...] documented as of this encounter Care Teams Poultry Feed Supervisor Relationship Specialty Start Date End Date Name, MD Chavo [address] [place] [address] PCP - General Internal Medicine 10/25/23 Gretchen Spears PharmD [address] [place] [address] Pharmacist Internal Medicine 11/25/23 documented as of this encounter
== END 2025-02-22 11:23 | disposition home or self-care (01) ==
LOC: HO.HUSH 10:51
PROVIDERS: PCP Internal Medicine Geriatric Medicine; Visit Provider Nurse Practitioner Family
DX: R10.9 Unspecified abdominal pain (principal); N20.0 Calculus of kidney; Z13.9 Encounter for screening, unspecified
CPT/HCPCS: 99213

== ENCOUNTER → 2025-02-22 10:50 | Outpatient (BNVA) | payer MEDICAID, SELFPAY | PROVIDERS: PCP Internal Medicine Geriatric Medicine; Visit Provider Nurse Practitioner Family | DX: N20.0 Calculus of kidney (principal); R10.9 Unspecified abdominal pain; E11.9 Type 2 diabetes mellitus without complications | CPT/HCPCS: 81003; 99212 ==

== ENCOUNTER 2025-02-26 11:25 | Outpatient (REF) | payer MEDICAID, SELFPAY | END 2025-02-26 11:26 | disposition home or self-care (01) | LOC: HO.HHCLNP 11:25 | PROVIDERS: Visit Provider Nurse Practitioner | DX: R35.0 Frequency of micturition (principal) | CPT/HCPCS: 87086 ==

== ENCOUNTER 2025-02-26 16:28 | Outpatient (REF) | payer MEDICAID, SELFPAY ==
--- OUTSIDE RECORDS SUMMARY | 2025-02-27 12:21 | XMS_ITS | Encounter Summary ---
Author Organization [employer] Address [address] [place] [address] [address] [place] [address] Care Team Providers Care Grinder Machine Setter Name Role Phone Name, Chavo MCMILLAN Primary Care Provider [phone] Gretchen Spears PharmD Unavailable [phone] Encounter Details Date Type Department Care Team (Late st Contact Info) Description 12/08/2024 Orders Only [facility] [address] [place] [address] ProviderHannah MD Social History Tobacco Use Types [...] Description 05/30/2025 9:30 AM EDT Office Visit [facility] [address] [place], [place] [id number] Pearl Buckley, OD [address] [place] [address] documented as of this encounter Goals Goal [...] documented as of this encounter Care Teams Grinder Machine Setter Relationship Specialty Start Date End Date Name, MD Chavo [address] [place], [place] [id number] PCP - General Internal Medicine 10/25/23 Puia, Gretchen, PharmD [address] [place], [place] [phone] Pharmacist Internal Medicine 11/25/23 documented as of this encounter
[2025-02-27 13:10] LABS: Bacterial Vaginosis PCR POSITIVE (Negative); Candida Group PCR DETECTED (Not Detect); Candida glab krusei PCR DETECTED (Not Detect); Trichomonas vaginalis PCR NOT DETECTED (Not Detect)
== END 2025-02-26 16:29 | disposition home or self-care (01) ==
LOC: HO.HHCLNP 16:28
PROVIDERS: Visit Provider Nurse Practitioner
DX: N89.8 Other specified noninflammatory disorders of vagina (principal); R35.0 Frequency of micturition
CPT/HCPCS: 81515; 87086

== ENCOUNTER 2025-05-30 13:09 | Outpatient (REF) | payer MEDICAID, SELFPAY ==
--- OUTSIDE RECORDS SUMMARY | 2025-05-30 09:30 | XMS_ITS | Encounter Summary ---
Author Organization [employer] Address [address] [place] [address] Care Team Providers Care Car Hopper Name Role Phone Name, Chavo MCMILLAN Primary Care Provider [phone] Gretchen Spears PharmD Unavailable [phone] Reason for Visit * Reason Comments Blurred Vision Diabetic Eye Exam Encounter Details Date Type Department Care Team (Late st Contact Info) Description 05/30/2025 9:30 AM EDT Office Visit [facility] [address] [place] [address] Marcio, Pearl, OD [address] [place] [address] Diabetes type 2, no ocular involvement (HCC) (Primary Dx); Suspicious optic nerve cupping of both eyes; 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 I have silke lopez 02/26/[address] you li ve. Do you have problems with any of the following? None of the above 02/26/2025 Food Insecurity Answer Date Recorded Within the past 12 months, y ou worried that your food would run out before you got money to buy more: Never True 02/26/2025 Within the past 12 months,th e food you bought just didn't last and you didn't have enough money to get more: Never True Transportation Answer Date Recorded In the past 12 months, has l ack of transportation kept you from medical appts, meetings, work or from getting things needed for daily living? No 02/26/2025 Utilities Answer Date Recorded In the past 12 months, has t he electric, gas, oil or water company threatened to shut off services in your home? No 02/26/2025 Depression Answer Date Recorded Patient Health Questionnaire-2 Score 0 02/26/2025 Internet Access Answer Date Recorded Internet Access Q1 Yes 02/26/2025 Internet Access Q2 Not on file 02/26/2025 Comments Unknown Sex and Gender Information Value Date Recorded Sex Assigned at Female 10/04/2023 3:37 PM EST Legal Sex Female 10:09 AM EST Gender Identity Female 10/04/2023 3:37 PM EST Sexual Orientation Straight 10/04/2023 3: 37 PM EST documented as of this encounter Plan of Treatment Upcoming Encounters Date Type Department Care Team (Late st Contact Info) Description 06/25/2025 4:00 PM EST Office Visit [facility] [address] [place] [id number] Name, MD Chavo [address] [place] [phone] Pending Results Name Type Priority Associated Diagnoses Date /Time OCT, Optic Nerve - OU - Both Eyes Ophthalmology Routine Suspicious optic nerve cupping of both eyes 05/30/2025 10:21 AM EDT documented as of this encounter Goals Goal Patient Goal Type Associated Problems Recent Progress Patient-Stated? 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
--- OUTSIDE RECORDS SUMMARY | 2025-05-30 10:40 | XMS_ITS | Encounter Summary ---
Author Organization [employer] Address [address] [place] [address] 7t [place] [address] Care Team Providers Care Chronic Disease Manager Name Role Phone Name, hCavo MCMILLAN Primary Care Provider [phone] Gretchen Spears PharmD Unavailable [phone] Reason for Visit * Reason Comments Vaginal Itching DYSURIA Encounter Details Date Type Department Care Team (Late st Contact Info) Description 05/30/2025 10:40 AM EDT Office Visit [facility] [address] [place], [place] [phone] Jacque Carreno DO [address] [place] [address] Complicated UTI (urinary tract infection) (Primary Dx); Vaginal itching Social History Tobacco Use Types Packs/Day Years Used Date Smoking Tobacco: Former Cigarettes Passive Smoke Exposure: Past Smokeless Tobacco: Never Tobacco Cessation:Counseling Given: Not [...] Sign Reading Time Taken Comments Blood Pressure 126/66 05/30/2025 10:35 AM EDT Pulse 88 05/30/2025 10:35 AM EDT Temperature 36.9 C (98.4 F) 05/30/2025 10:35 AM EDT Respiratory Rate 19 05/30/2025 10:35 AM EDT Oxygen Saturation 97% 05/30/2025 10:35 AM EDT Inhaled Oxygen Concentration - - Weight 101 kg (223 lb) 05/30/2025 10:35 AM EDT Height 160 cm (5' 3 ) 05/30/2025 10:35 AM EDT Body Mass Index 39.5 05/30/2025 10:35 AM EDT documented in this encounter Progress Notes * Jacque Carreno, DO - 05/30/2025 10:40 AM EDT SUBJECTIVE Darek Frias is a 54 y.o. female who presents for Sick Visit. She presents to [place] today c/o UTI sx. She thinks that she has a UTI. She has been having urinary frequency and dysuria for the last 2 weeks. She says that she has burning at the end of urination. She reports urgency and nocturia. No hematuria. She also has malodorous urine. She says she is having some pelvic pain and low back pain. No N/V. No fevers. She also c/o vaginal itching for about the same amount of time. She reports clear vaginal dischargewithout odor. She is not sexaully active. LMP age 47. She has h/o DM, A1c well controlled History provided by: Patient senior accounting manager used: Yes UTI Severity: Moderate Duration: 2 weeks Timing: Constant Progression: Unchanged Chronicity: New Associated symptoms: rash Associated symptoms: no abdominal pain, no chest pain, no cough, no diarrhea, no fever, no headaches, no nausea, no shortness of breath and no vomiting Review of Systems Constitutional: Negative for activity change, appetite change, chills, fever and unexpected weight change. Respiratory: Negative for cough and shortness of breath. Cardiovascular: Negative for chest pain, palpitations and leg swelling. Gastrointestinal: Negative for abdominal pain, blood in stool, constipation, diarrhea, nausea and vomiting. Genitourinary: Positive for decreased urine volume, dysuria, frequency, pelvic pain, urgency and vaginal discharge. Negative for hematuria and menstrual problem. Skin: Positive for rash. Neurological: Negative for weakness and headaches. Patient Active Problem List Diagnosis Type 2 diabetes mellitus without complication YESSICA (obstructive sleep apnea) Hyperlipidemia Obesity (BMI 30-39.9) Sebaceous gland hyperplasia Tinea corporis Recent urinary tract infection Vaginal candidiasis Spondylosis of lumbar region without myelopathy or radiculopathy Chronic bilateral low back pain without sciatica Bicipital tendinitis, left shoulder Bilateral plantar fasciitis Calculus of distal left ureter Heartburn Insomnia Irregular heart beat Morbid obesity (CMS/HCC) (HCC) Neck muscle spasm Osteoarthritis of right shoulder Pain in left arm Pain in right arm Pyelonephritis UTI (urinary tract infection) Mixed hyperlipidemia Sleep apnea No Known Allergies OBJECTIVE Visit Vitals BP 126/66 (BP Location: Left arm, Patient Position: Sitting, BP Cuff Size: Large adult) Pulse 88 Temp 98.4 ??F (36.9 ??C) (Oral) Resp 19 Ht 5' 3 (1.6 m) Wt 223 lb (101 kg) SpO2 97% BMI 39.50 kg/m?? Smoking Status Former BSA 2.12 m?? Physical Exam Constitutional: General: She is not in acute distress. Appearance: Normal appearance. Cardiovascular: Rate and Rhythm: Normal rate and regular rhythm. Heart sounds: Normal heart sounds. No murmur heard. Pulmonary: Effort: Pulmonary effort is normal. Breath sounds: Normal breath sounds. No wheezing or rhonchi. Abdominal: General: Bowel sounds are normal. Palpations: Abdomen is soft. Tenderness: There is abdominal tenderness in the suprapubic area. There is no right CVA tenderness or left CVA tenderness. Neurological: General: No focal deficit present. Mental Status: She is alert and oriented to person, place, and time. Cranial Nerves: No cranial nerve deficit. Motor: No weakness. Gait: Gait normal. Psychiatric: Mood and Affect: Mood normal. Office Visit on 05/30/2025 Component Date Value Ref Range Status Color, UA 05/30/2025 Yellow Final Clarity, UA 05/30/2025 Clear Final Glucose, UA 05/30/2025 Negative Final Bilirubin, UA 05/30/2025 Negative Final Ketones, UA 05/30/2025 Negative Final Spec Grav, UA 05/30/2025 1.030 Final >= 1.030 Blood, UA 05/30/2025 Negative Negative, None Detected Final pH, UA 05/30/2025 5.5 Final Protein, UA 05/30/2025 Negative Final Urobilinogen, UA 05/30/2025 0.2 Final Leukocytes, UA 05/30/2025 Trace Negative, Rare, Trace Final Nitrite, UA 05/30/2025 Negative Negative, None Detected Final Appearance, UA 05/30/2025 clear Final QC Media Lot # 05/30/2025 [id number] Final Lot# Expiration Date 05/30/[phone] Final Assessment/Plan Diagnoses and all orders for this visit: Complicated UTI (urinary tract infection) -treat empirically with cipro BID x 5 days -send Ucx for sensitivities -advised contact HHC if sx do not resolve Vaginal itching Probable candidiasis -treat empirically with diflucan -trial terconazole cream for symptomatic relief -advised contact HHC if sx do not resolve, she agrees with plans --Follow-up with PCP as scheduled or sooner prn-- Current Outpatient Medications: acetaminophen (Tylenol) 325 MG tablet, Take 2 tablets (650 mg) by mouth every 6 (six) hours if needed for moderate pain. OTC, Disp: 40 tablet, Rfl: 0 atorvastatin (Lipitor) 20 MG tablet, TAKE 1 TABLET BY MOUTH EVERY DAY IN THE MORNING, Disp: 30 tablet, Rfl: 11 ciprofloxacin (Cipro) 500 MG tablet, Take 1 tablet (500 mg) by mouth 2 times daily for 5 days., Disp: 10 tablet, Rfl: 0 D3 Super Strength 50 MCG (2000 UT) capsule, TAKE 1 CAPSULE BY MOUTH EVERY DAY IN THE MORNING, Disp:30 capsule, Rfl: 11 Dulaglutide (Trulicity) 3 MG/0.5ML solution auto-injector, Inject 3 mg under the skin 1 (one) time per week., Disp: 2 mL, Rfl: 11 fluconazole (Diflucan) 150 MG tablet, Take 1 tablet (150 mg) by mouth 1 (one) time for 1 dose., Disp: 1 tablet, Rfl: 0 glucose blood test strip, Use as instructed, Disp: 100 each, Rfl: 12 lidocaine (Lidoderm) 5 % patch, Apply 1 patch topically Once per day. Remove & discard patch within 12 hours or as directed by MD., Disp: 30 patch, Rfl: 2 metFORMIN, OSM, (Fortamet) 1000 MG 24 hr tablet, Take 1 tablet (1,000 mg) by mouth with evening meal. Do not crush, chew, or split., Disp: 30 tablet, Rfl: 11 terconazole (Terazol 7) 0.4 % vaginal cream, Insert 1 applicator into the vagina at bedtime for 7 days., Disp: 45 g, Rfl: 0 tiZANidine (Zanaflex) 2 MG tablet, Take 1 tablet (2 mg) by mouth every 6 (six) hours if needed for muscle spasms for up to 10 days., Disp: 30 tablet, Rfl: 0 TRUEplus Lancets 33G misc, USE DIRECTED TO TEST BLOOD SUGAR EVERY DAY IN THE MORNING, Disp: , Rfl: Scribe Attestation: Rod Alegria, am serving as a scribe to document services personally performed by Jacque Wilson, based on the patient's response to questions by provider and provider's statements to me. 05/30/25 1:45 PM Physicians Attestation: Jacque Alegria DO, have reviewed the information by the scribe, Rod Snyder, for accuracy and agree with its content. documented in this encounter Plan of Treatment Upcoming Encounters Date Type Department Care Team (Late st Contact Info) Description 06/25/2025 4:00 PM EST Office Visit [facility] [address] [place] [address] Name, MD Chavo [address] [place] [address] Scheduled Orders Name Type Priority Associated Diagnoses Orde r Schedule Culture, Urine, Routine Microbiology Routine Complicated UTI (urinary tract infection) Ordered: 05/30/2025 documented as of this encounter Goals Goal Patient Goal Type Associated Problems Recent Progress Patient-Stated? Author Hemoglobin A1c < 7 Result Component 6(01/24/2025 4:19 PM EDT) No Puia, Gretchen, PharmD Record your blood sugar as directed Result Component No Puia, Gretchen, PharmD documented as of this encounter Procedures Procedure Name Priority Date/Time Associated Diagnosis Comments BACTERIAL VAGINOSIS PANEL Routine 05/30/2025 10:51 AM EDT Vaginal itching CHLAMYDIA/N. GONORRHOEAE RNA, TMA, UROGENITAL Routine 05/30/2025 10:51 AM EDT Vaginal itching POCT URINALYSIS DIPSTICK Routine 05/30/2025 10:49 AM EDT Complicated UTI (urinary tract infection) documented in this encounter Results * (ABNORMAL) Bacterial Vaginosis (05/30/2025 10:51 AM EDT) TRICHOMONAS VAGINALIS DETECTION BY PCR NOT DETECTED Not Detect [facility] BACTERIAL VAGINOSIS DETECTION BY PCR POSITIVE(A) Negative [facility] Comment:The BV organism targ ets of the Xpert Xpress MVP test can becommensal in women; Xpert Xpress MVP positive results forbacterial vaginosis should be considered in conjunction withother clinical and patient information to determine thedisease status. Organisms that are not detected by the XpertXpress MVP test have also been reported to be associatedwith BV and aerobic vaginitis.The Xpert Xpress MVP test performance has not been evaluatedin patients under the age of 14. NOLA GROUP DETECTION BY PCR NOT DETECTED Not Detect [facility] Noal glab krusei PCR NOT DETECTED Not Detect [facility] Swab Vaginal structure / Unknown 05/30/2025 10:51 AM EDT 05/30/2025 1:09 PM EDT us Jacque Carreno DO LAB MICROBIOLOGY - GENERAL O RDERABLES Final Result [facility] [address] [place] [address] [phone] * Chlamydia/N. Gonorrhoeae RNA, TMA, Vaginal (05/30/2025 10:51 AM EDT) CT PCR NOT DETECTED Not Detect. [facility] Comment:A not detected test result does not exclude the possibilityof infection because test results can be affected byimproper specimen collection, concurrent antibiotic therapy,or the number of organisms in the specimen which may bebelow the sensitivity of the test. As with many diagnostictests, results from the Xpert CT/NG assay should beinterpreted in conjunction with other laboratory andclinical data available to the clinician.Xpert CT/NG performance has not been evaluated in patientsless than 14 years of age. The assay should not be used forthe evaluationof suspected sexual abuse or for other medico-legalindications. Additional testing is recommended in anycircumstance when false positive or false negative resultscould lead to adverse medical, social or psychologicalconsequences. NG PCR NOT DETECTED Not Detect. [facility] Comment:A not detected test result does not exclude the possibilityof infection because test results can be affected byimproper specimen collection, concurrent antibiotic therapy,or the number of organisms in the specimen which may bebelow the sensitivity of the test. As with many diagnostictests, results from the Xpert CT/NG assay should beinterpreted in conjunction with other laboratory andclinical data available to the clinician.Xpert CT/NG performance has not been evaluated in patientsless than 14 years of age. The assay should not be used forthe evaluationof suspected sexual abuse or for other medico-legalindications. Additional testing is recommended in anycircumstance when false positive or false negative resultscould lead to adverse medical, social or psychologicalconsequences. Swab (Vaginal Swab) 05/30/2025 10:51 AM EDT 05/30/2025 1:09 PM EDT Jacque Carreno DO LAB MICROBIOLOGY - GENERAL O RDERABLES Final Result [facility] [address] [place] [address] [phone] * POCT Urinalysis (05/30/2025 10:49 AM EDT) Color, UA Yellow Clarity, UA Clear Glucose, UA Negative Bilirubin, UA Negative Ketones, UA Negative Spec Grav, UA 1.030 Comment:>= 1.030 Blood, UA Negative Negative, None Detected pH, UA 5.5 Protein, UA Negative Urobilinogen, UA 0.2 Leukocytes, UA Trace Negative, Rare, Trace Nitrite, UA Negative Negative, None Detected Appearance, UA clear QC Media Lot # [id number] Lot# Expiration Date Urine (Urine, Random) 05/30/2025 10:49 AM EDT Jacque Carreno DO POINT OF CARE TEST ENTER/COLIN T ORDERABLES Final Result documented in this encounter Visit Diagnoses Diagnosis Complicated UTI (urinary tract infection)- Primary Vaginal itching Pruritus of genital organs documented in this encounter Additional Health Concerns Assessment Noted Time PHQ-9 Depression Total Score: 4 02/27/20 25 4:37 PM EDT documented as of this encounter Care Teams Chronic Disease Manager Relationship Specialty Start Date End Date Name, MD Chavo [address] [place] [phone] PCP - General Internal Medicine 10/25/23 Gretchen Spears PharmD [address] [place] [address] Pharmacist Internal Medicine 11/25/23 documented as of this encounter
[2025-05-30 15:41] LABS: Bacterial Vaginosis PCR POSITIVE (Negative); Candida Group PCR NOT DETECTED (Not Detect); Candida glab krusei PCR NOT DETECTED (Not Detect); Trichomonas vaginalis PCR NOT DETECTED (Not Detect)
[2025-05-30 16:13] LABS: CT PCR NOT DETECTED (Not Detect.); NG PCR NOT DETECTED (Not Detect.)
--- OUTSIDE RECORDS SUMMARY | 2025-05-30 16:46 | XMS_ITS | Encounter Summary ---
Author Organization [employer] Address [address] [place] [address] 7t [place] [address] Care Team Providers Care Knife Machine Operator Name Role Phone Name, Chavo MCMILLAN Primary Care Provider Gretchen Spears PharmD Unavailable Reason for Visit * Reason Onset Date Comments Med Refill 08/05/2024 Encounter Details Date Type Department Care Team (Late st Contact Info) Description 08/05/2024 Refill [facility] [address] [place], [place] [phone] Katina Cabrera MD [address] [place] [address] Social History Tobacco Use Types Packs/Day Years [...] Description 06/25/2025 4:00 PM EST Office Visit [facility] [address] [place] [address] Name, MD Chavo [address] [place] [address] documented as of this encounter Goals Goal [...] documented as of this encounter Care Teams Knife Machine Operator Relationship Specialty Start Date End Date Name, MD Chavo [address] [place] [address] PCP - General Internal Medicine 10/25/23 PuiaKjGretchen, PharmD [address] [place] [address] Pharmacist Internal Medicine 11/25/23 documented as of this encounter
--- OUTSIDE RECORDS SUMMARY | 2025-05-30 16:46 | XMS_ITS | Encounter Summary ---
Author Organization [employer] Address [address] [place] [address] 7t [place] [address] Care Team Providers Care Remote Operations Producer Name Role Phone Name, Chavo MCMILLAN Primary Care Provider [phone] Gretchen Spears PharmD Unavailable [phone] Encounter Details Date Type Department Care Team (Late st Contact Info) Description 12/08/2024 Orders Only [facility] [address] [place] [address] ProviderHannah MD Social History Tobacco Use Types [...] Description 06/25/2025 4:00 PM EST Office Visit [facility] [address] [place], [place] [phone] Name, MD Chavo [address] [place] [address] documented as of this encounter Goals Goal [...] documented as of this encounter Care Teams Remote Operations Producer Relationship Specialty Start Date End Date Name, MD Chavo [address] [place] [address] [phone] PCP - General Internal Medicine 10/25/23 Puia, Gretchen, PharmD [address] [place] [address] [phone] Pharmacist Internal Medicine 11/25/23 documented as of this encounter
--- OUTSIDE RECORDS SUMMARY | 2025-05-30 16:46 | XMS_ITS | Encounter Summary ---
Author Organization [employer] Address [address] [place] [address] 7 [place] [address] Care Team Providers Care Mink Rancher Name Role Phone NameChavo MD Primary Care Provider Gretchen Spears PharmD Unavailable [phone] Reason for Visit * Reason Onset Date Comments Med Refill 08/05/2024 Encounter Details Date Type Department Care Team (Late st Contact Info) Description 08/05/2024 Refill [facility] [address] [place], [place] [phone] Name, MD Chavo [address] [place] [address] Social History Tobacco Use Types Packs/Day Years [...] Description 06/25/2025 4:00 PM EST Office Visit [facility] [address] [place] [address] Name, MD Chavo [address] [place] [address] documented as of this encounter Goals Goal [...] documented as of this encounter Care Teams Mink Rancher Relationship Specialty Start Date End Date Name, MD Chavo [address] [place] [address] PCP - General Internal Medicine 10/25/23 Gretchen Spears, PharmD [address] [place] [phone] Pharmacist Internal Medicine 11/25/23 documented as of this encounter
--- OUTSIDE RECORDS SUMMARY | 2025-05-30 16:47 | XMS_ITS | Encounter Summary ---
Author Organization [employer] Address [address] [facility] 7t [place] [address] Care Team Providers Care Powder Worker Name Role Phone Name, Chavo MCMILLAN Primary Care Provider [phone] Gretchen Spears PharmD Unavailable [phone] Reason for Visit * Reason Comments Med Refill Encounter Details Date Type Department Care Team ([facility] Contact Info) Description 05/17/2025 Refill [facility] [address] [place] [address] Brennan Buitrago MD [address] [place] [address] Social History Tobacco Use Types Packs/Day Years [...] Description 06/25/2025 4:00 PM EST Office Visit [facility] [address] [place] [address] Name, MD Chavo [address] [place] [address] documented as of this encounter Goals Goal [...] documented as of this encounter Care Teams Powder Worker Relationship Specialty Start Date End Date NameChavo MD [address] [place] [address] PCP - General Internal Medicine 10/25/23 Puia, Gretchen, PharmD [address] [place] [address] Pharmacist Internal Medicine 11/25/23 documented as of this encounter
--- OUTSIDE RECORDS SUMMARY | 2025-05-30 16:47 | XMS_ITS | Encounter Summary ---
Author Organization [employer] Address [address] [place] [address] 7 [place] [address] Care Team Providers Care Claim Adjuster Name Role Phone NameChavo MD Primary Care Provider [phone] Gretchen Spears PharmD Unavailable [phone] Reason for Visit * Reason Onset Date Comments Med Refill 06/19/2024 Encounter Details Date Type Department Care Team (Late st Contact Info) Description 06/19/2024 Refill [facility] [address] [place], [place] [phone] Name, MD Chavo [address] [place] [address] Type 2 diabetes mellitus without complication, unspecified whether terminal gauger insulin use ([facility]) Social History Tobacco Use Types Packs/Day [...] your housing situation today? I have silke jessica 10/18/[address] you li [...] Description 06/25/2025 4:00 PM EST Office Visit [facility] [address] [place] [address] Name, MD Chavo [address] [place] [address] documented as of this encounter Goals Goal Patient Goal Type Associated Problems Recent Progress Patient-Stated? Author Hemoglobin A1c < 7 Result Component 6(01/24/2025 4:19 PM EDT) No Puia, Gretchen, PharmD Record your blood sugar as directed Result Component No Puia, Gretchen, PharmD documented as of this encounter Visit Diagnoses Diagnosis Type 2 diabetes mellitus without complication, unspecified whether terminal gauger insulin use documented in this encounter Additional Health Concerns Assessment Noted Time PHQ-9 Depression Total Score: 0 10/25/19 24 1:07 PM EDT documented as of this encounter Care Teams Claim Adjuster Relationship Specialty Start Date End Date Name, MD Chavo [address] [place] [address] PCP - General Internal Medicine 10/25/23 Puia, Gretchen, PharmD [address] [place] [phone] Pharmacist Internal Medicine 11/25/23 documented as of this encounter
--- OUTSIDE RECORDS SUMMARY | 2025-05-30 16:47 | XMS_ITS | Encounter Summary ---
Author Organization [employer] Address [address] [place] [address] [address] [place] [address] Care Team Providers Care Plastic Sheeting Cutter Name Role Phone Name, Chavo MCMILLAN Primary Care Provider [phone] Gretchen Spears PharmD Unavailable [phone] Encounter Details Date Type Department Care Team (Latest Contact Info) Description 05/30/2025 Travel Social History Tobacco Use Types Packs/Day Years [...] Description 06/25/2025 4:00 PM EST Office Visit [facility] [address] [place] [address] Name, MD Chavo [address] [place] [address] documented as of this encounter Goals Goal [...] documented as of this encounter Care Teams Plastic Sheeting Cutter Relationship Specialty Start Date End Date Name, MD Chavo [address] [place] [address] PCP - General Internal Medicine 10/25/23 Puia, Gretchen, PharmD [address] [place] [address] Pharmacist Internal Medicine 11/25/23 documented as of this encounter
--- OUTSIDE RECORDS SUMMARY | 2025-05-30 16:47 | XMS_ITS | Clinical Summary ---
Author Organization [email or web address] Address [address] [place] [address] [address] [place] [address] Care Team Providers Care Trimming Machine Set Up Operator Name Role Phone Name, Chavo MCMILLAN Primary Care Provider [phone] Gretchen Spears PharmD Unavailable [phone] Allergies No known active allergies Medications glucose blood test strip Use as instructed 100 each 12 10/04/19 24 Active TRUEplus Lancets 33G misc USE DIRECTED TO TEST BLOOD SUGAR EVERY DAY IN THE MORNING 10/04/19 24 Active atorvastatin (Lipitor) 20 MG tablet TAKE 1 TABLET BY MOUTH EVERY DAY IN THE MORNING 30 tablet 10/31/19 25 Active D3 Super Strength 50 MCG (2000 UT) capsule TAKE 1 CAPSULE BY MOUTH EVERY DAY IN THE MORNING 30 capsule 10/31/19 25 Active lidocaine (Lidoderm) 5 % patch Apply 1 patch topically Once per day. Remove & discard patch within 12 hours or as directed by . 30 patch 2 11/28/19 Active metFORMIN, OSM, (Fortamet) 1000 MG 24 hr tablet Take 1 tablet (1,000 mg) by mouth with evening meal. Do not crush, chew, or split. 30 tablet 01/25/20 026 Active Dulaglutide (Trulicity) 3 MG/0.5ML solution auto-injector Inject 3 mg under the skin 1 (one) time per week. 2 mL 01/25/20 Active tiZANidine (Zanaflex) 2 MG tabletIndicati ons:Acute right-sided thoracic back pain Take 1 tablet (2 mg) by mouth every 6 (six) hours if needed for muscle spasms for up to 10 days. 30 tablet 02/27/20 Active fluconazole (Diflucan) 150 MG tablet Take 1 tablet (150 mg) by mouth 1 (one) time for 1 dose. 1 tablet 05/30/20 Active terconazole (Terazol 7) 0.4 % vaginal cream Insert 1 applicator into the vagina at bedtime for 7 days. 45 g 05/30/20 Active ciprofloxacin (Cipro) 500 MG tablet Take 1 tablet (500 mg) by mouth 2 times daily for 5 days. 10 tablet 05/30/20 Active acetaminophen (Tylenol) 325 MG tablet Take 2 tablets (650 mg) by mouth every 6 (six) hours if needed for moderate pain. OTC 40 tablet 05/30/20 Active acetaminophen (Tylenol) 325 MG tablet Take 2 tablets (650 mg) by mouth every 6 (six) hours if needed for moderate pain. OTC 40 tablet 11/28/19 025 Discontinued(Re order (will not trigger notification to Pharmacy)) fluconazole (Diflucan) 150 MG tabletIndicati ons:Vaginal yosef Take 1 tablet today and another 3 days later 2 tablet 03/01/20 Discontinued(Re order (will not trigger notification to Pharmacy)) Active Problems Problem Noted Date Diagnosed Date Bicipital tendinitis, left shoulder 02/23/2025 Calculus of distal left ureter 02/23/2025 Osteoarthritis of right shoulder 02/23/2025 Pyelonephritis 02/23/2025 UTI (urinary tract infection) 02/23/2025 Spondylosis of lumbar region without myelopathy or radiculopathy 01/25/2025 Chronic bilateral low back pain without sciatica 01/25/2025 Tinea corporis 11/06/2024 Recent urinary tract infection 11/06/2024 Vaginal candidiasis 11/06/2024 Sebaceous gland hyperplasia 06/06/2024 Assessment & Plan (06/06/2024 1:22 PM EST): Suspect likely sebaceous hyperplasia, less likely wart. Not likely xanthoma. No sign of infection. -referred to dermatology 06/06/24 Neck muscle spasm 01/07/2024 Heartburn 12/10/2023 Overview (02/23/2025): Everyday Type 2 diabetes mellitus without complication Assessment & Plan (10/04/2023 4:39 PM EST): Uncontrolled, A1c improving from 9.3 (Mychart from previous PCP reviewed). Increase Farxiga to 10mg/d and continue Janumet same dose. Needs to fu with new PCP in 4-6w hay sorter visit. Order labs Counseled re more frequent low calorie/carb meals. Encouraged physical activity as tolerated. YESSICA (obstructive sleep apnea) 10/04/2023 Assessment & [...] or trans fats. Obesity (BMI 30-39.9) 03/16/2023 Bilateral plantar fasciitis 03/16/2023 Irregular heart beat 10/11/2020 Morbid obesity (CMS/HCC) 05/22/2019 Mixed hyperlipidemia 05/22/2019 Insomnia 04/26/2019 Pain in left arm 01/09/2019 Pain in right arm 01/09/2019 Sleep apnea 01/09/2019 Resolved Problems Problem Noted Date Diagnosed Date Resolved Date Dizziness 10/04/2023 01/25/2025 Assessment & Plan (10/04/2023 4:39 PM EST): Due to uncontrolled Dm. 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 Explains mother got a letter in the mail saying she was due for a mamogram but cannot get seen without refferal.) 03/01/2025 Results Follow-Up [facility] [address] [place] [address] Dary Lozano NP Bacterial Vaginosis from Last 3 Months Immunizations Immunization Administration Dates Next Due Hep A, Adult 01/11/2024 HepB-CpG 01/11/2024 Influenza Injectable Quadriv alant Preservative Free IIV4 MDCK 05/06/2022 Influenza, seasonal, injectable, preservative fr ee 04/26/2024 Pneumococcal Conjugate PCV 20 04/26/2024 Pneumococcal Polysaccharide PPSV23 10/11/2019 Tdap 11/25/2023 Zoster, Recombinant 05/18/2024 Social History Tobacco Use Types Packs/Day Years [...] is your housing situation today? I have islke lopez 02/26/[address] you [...] Mass Index 39.5 05/30/2025 10:35 AM EDT Plan of Treatment Upcoming Encounters Date Type Department Care Team (Late st Contact Info) Description 06/25/2025 4:00 PM EST Office Visit [facility] [address] [place] [address] Name, MD Chavo [address] [place] [address] Health Maintenance Due Date Last Done Comments CT Colonography 1969 Colonoscopy 1969 Colorectal Cancer Screening 1969 FIT DNA/Cologuard 1969 FIT 1969 FOBT 1969 Sigmoidoscopy 1969 Diabetes: Foot Exam 11/16/1979 Pap Smear 1990 Cervical Cancer Screening 11/16/1999 HPV/Cotest 11/16/1999 Hepatitis B Vaccines (2 of 2 - CpG 2-dose series) 02/08/2024 01/11/2024 Hepatitis A Vaccines (2 of 2 - Risk 2-dose series) 07/12/2024 01/11/2024 Zoster Vaccines (2 of 2) 07/13/2024 05/18/2024 COVID-19 Vaccine ( - season) 2025 Influenza Vaccine (#1) 2025 04/26/2024, 2021 Diabetes: Hemoglobin A1C 07/26/2025 025, 11/03/2024, 05/02/2024, Additional history exists Diabetes: Urine Protein Screening 09/11/2025 09/11/2024, 10/08/2023 Lipid Panel 09/11/2025 09/11/2024, 12/31, 10/08/2023 Alcohol/Substance Use Screening 02/26/2026 02/26/2025 Depression Screening 02/26/2026 02/26/2025, 02/27/20 25 Disability Screening 02/26/2026 02/26/2025 SDOH Screening 02/26/2026 02/26/2025 Mammogram 03/06/2026 03/06/2024, 08/0 12/2023, 10/02/2021, Additional history exists Tobacco Screening 05/30/2026 05/30/2025 Eye Exam 05/30/2027 05/30/2025, 05/03, 05/30/2025, Additional history exists DTaP/Tdap/Td Vaccines (2 - Td or Tdap) 11/24/2033 11/25/2023 RSV Patients and Patients Aged 60 years or older (1 - 1-dose 75+ series) 2044 HIV Screening Completed 05/12/2022 Hepatitis C Screening Completed 10/08/2023 Pneumococcal Vaccine: 50+ Years Completed 04/26/2024, 10/11/2019 HIB Vaccines Aged Out No longer eligi ble based on patient's age to complete this topic HPV Vaccines Aged Out No longer eligi ble based on patient's age to complete this topic IPV Vaccines Aged Out No longer eligi ble based on patient's age to complete this topic Meningococcal B Vaccine Aged Out No l onger eligible based on patient's age to complete [...] 6(01/24/2025 4:19 PM EDT) No Gretchen Spears, PharmErnesto Record your blood sugar as directed Result Component No Gretchen Spears, PharmD Procedures Procedure Name Priority Date/Time Associated Diagnosis Comments BACTERIAL VAGINOSIS PANEL Routine 05/30/2025 10:51 AM EDT Vaginal itching CHLAMYDIA/N. GONORRHOEAE RNA, TMA, UROGENITAL Routine 05/30/2025 10:51 AM EDT Vaginal itching POCT URINALYSIS DIPSTICK Routine 05/30/2025 10:49 AM EDT Complicated UTI (urinary tract infection) POCT GLYCATED HEMOGLOBIN, TOTAL Routine 01/24/2025 4:19 PM EDT Type 2 diabetes mellitus without complication, without long-term current use of insulin ([facility]) ALBUMIN, RANDOM URINE W/CREATININE Routine 09/11/2024 8:31 AM EST Type 2 diabetes mellitus without complication, without long-term current use of insulin ([facility]) LIPID PANEL, STANDARD Routine 09/11/2024 8:31 AM EST Type 2 diabetes mellitus without complication, without long-term current use of insulin ([facility]) BI MAMMOGRAM DIAGNOSTIC TOMOSYNTHESIS BILATERAL Routine 03/06/2024 2:06 PM EDT Painful lumpy right breast HEPATITIS PANEL, GENERAL Routine 10/08/2023 9:30 AM EST Dizziness from Last 3 Months or Most Recently Relevant to Health Maintenance Results * (ABNORMAL) Bacterial Vaginosis (05/30/2025 10:51 AM EDT) TRICHOMONAS VAGINALIS DETECTION BY PCR NOT DETECTED Not Detect [facility] BACTERIAL VAGINOSIS DETECTION BY PCR POSITIVE(A) Negative [facility] Comment:The BV organism targ ets [...] evaluatedin patients under the age of 14. YOSEF GROUP DETECTION BY PCR NOT DETECTED Not Detect [facility] Yosef glab krusei PCR NOT DETECTED Not Detect [facility] Swab Vaginal structure / Unknown 05/30/2025 10:51 AM EDT 05/30/2025 1:09 PM EDT us Jacque Carreno DO LAB MICROBIOLOGY - GENERAL O RDERABLES Final Result [facility] [address] [place] [phone] * Chlamydia/N. Gonorrhoeae RNA, TMA, Vaginal (05/30/2025 10:51 AM EDT) CT PCR NOT DETECTED Not Detect. [facility] Comment:A not detected test result [...] psychologicalconsequences. NG PCR NOT DETECTED Not Detect. [facility] Comment:A not detected test result [...] MICROBIOLOGY - GENERAL O RDERABLES Final Result [facility] [address] [place] [phone] * POCT Urinalysis (05/30/2025 10:49 AM [...] CARE TEST ENTER/COLIN T ORDERABLES Final Result * POCT HGB A1C (01/24/2025 4:19 PM EDT) Hemoglobin A1C 6.0 4.0 - 6.0 % QC Media Lot # [id number] Lot# Expiration Date Blood 01/24/2025 4:19 PM EDT Chavo Fairbanks MD POINT OF CARE TEST ENTER/EDIT OR DERABLES Final Result * Albumin, Random Urine W/Creatinine (09/11/2024 8:31 AM EST) Creatinine, Urine 215.17 mg/dL [facility] Microalbumin Urine 16.0 mg/L [facility] Microalbum Creatinine Ratio Ur 7.4 <30 ug/mg cr [facility] Comment:Albumin/Creatinine R atio Reference Ranges: Normal: < 30 ug/mg creatinine Microalbuminuria: 30 - 300 ug/mg creatinineClinical Albuminuria: > 300 ug/mg creatinine Urine (Urine, Random) 09/11/2024 8:31 AM EST 09/11/2024 11:02 AM EST us Chavo Fairbanks MD LAB URINE ORDERABLES Final Resul t [facility] [address] [place] [phone] * (ABNORMAL) Lipid Panel, Standard (09/11/2024 8:31 AM EST) Triglycerides 180(H) <150 mg/dL [facility] Comment:Desirable Triglyceri de: less than 150 mg/dLBorderline High Triglyceride 150-199 mg/dLHigh Triglyceride: 200-499 mg/dLVery High Triglyceride: greater than or equal to 5OO mg/dL Cholesterol 150 <200 mg/dL [facility] Comment:Desirable Cholestero l: less than 200 mg/dLBorderline High Cholesterol: 200-239 mg/dLHigh Cholesterol: greater than 239 mg/dL LDL Cholesterol Calculated 80 <100 mg/dL [facility] Comment:Desirable LDL: less than 100 mg/dLNear Optimal/Above Optimal LDL: 110- 129 mg/dLBorderline High LDL: 130-159 mg/dLHigh LDL: 160-189 mg/dLVery High LDL: greater than or equal to 190 mg/dL HDL Cholesterol 34(L) >40 mg/dL [facility] Comment:Desirable HDL: great er than 40 mg/dL Note: This HDL assay may give artificially low results in patients with liver disease. Blood Venous blood specimen / Unknown 09/11/2024 8:31 AM EST 09/11/2024 11:06 AM EST Chavo Fairbanks MD LAB BLOOD ORDERABLES Final Resul t [facility] [address] [place] [phone] * BI Mammogram Diagnostic Tomosynthesis Bilateral (03/06/2024 2:06 PM EDT) Anatomical Region Laterality Modality Breast Bilateral Mammography 03/06/2024 2:06 PM EDT Narrative 03/06/2024 2:57 PM EDT [facility] [address] [place] [address] Mammography Report Signed Patient: Darek Akhtar MR#: [id number] : 1970 Acct:[id number] Age/Sex: 53 / F ADM Date: 03/06/24 Loc: HOHernanMAMMO Attending Dr: Chavo Fairbanks MD Ordering Physician: Chavo Fairbanks MD Results: 1Negative Date of Service: 03/06/24 Follow Up: 1 Year From Orig inal Mammogram Procedure(s): MM tomosynthesis diagnostic BI Accession Number(s): [id number] cc: Name,Chavo MCMILLAN EXAMINATION: MM DIAGNOSTIC DIGITAL BREAST TOMOSYNTHESIS, BILATERAL US BREAST LIMITED, RIGHT MAMMOGRAPHY: CLINICAL INFORMATION: 53-year-old female complaining of right breast pain/palpable focus approximate 11:00 axis, anterior one third. As per technologist note, history of breast cancer in sister at age 48. COMPARISON: Bilateral Mammography and right breast ultrasound 10/02/2021 from [facility]. TECHNIQUE: Digital breast tomosynthesis is performed [...] in OV> 03/06/24 1453 DD/ 1406 TD/TT: Dispute Resolution Analyst: Procedure Note Donotuseinterpreter, Image - 03/06/2024 Renato [facility] [address] [place], [place] [address] Mammography Report Signed Patient: Michael Akhtar#: [id number] : 1970Acct:[id number] Age/Sex: 53 / FADM Date: 03/06/24 Loc: HO.MAMMO Attending Dr: Chavo Fairbanks MD Ordering Physician: Chavo Fairbanks MDResults: 1Negative Date of Service: 03/06/24Follow Up: 1 Year From [facility] Mammogram Procedure(s): MM tomosynthesis diagnostic BI Accession Number(s): [id number] cc: Chavo Fairbanks MD EXAMINATION: MM DIAGNOSTIC DIGITAL BREAST TOMOSYNTHESIS, BILATERAL US BREAST LIMITED, RIGHT MAMMOGRAPHY: CLINICAL INFORMATION: 53-year-old female complaining of right breast pain/palpable focus approximate 11:00 axis, anterior one third. As per technologist note, history of breast cancer in sister at age 48. COMPARISON: Bilateral Mammography and right breast ultrasound 10/02/2021 from [facility] [place]. TECHNIQUE: Digital breast tomosynthesis is performed in [...] in OV> 03/06/24 1453 DD/ 1406 TD/TT: Dispute Resolution Analyst: Chavo Name [facility] BI PROCEDURES Final Result * Hepatitis Panel, General (10/08/2023 9:30 AM EST) Hepatitis A IgM Nonreactive Nonreactive [facility] Comment:IgM antibodies to MASSEY V not detected; does not exclude earlyacute or recovered HAV infection. ~Hepatitis B Surface Antibody NONREACTIVE Nonreactive [facility] Comment:Nonreactive: < 8.00 mIU/mL Hepatitis B Core Antibody Nonreactive Nonreactive [facility] Hepatitis C Antibody Nonreactive Nonreactive [facility] Comment:Antibodies to HCV no t detected; does not exclude early acuteHCV infection. Hepatitis B Surface Ag Negative Negative [facility] Blood 10/08/2023 9:30 AM EST 10/08/2023 11:29 AM EST Katina Cabrera MD LAB BLOOD ORDERABLES Fin al Result [facility] [address] [place] [address] [phone] from Last 3 Months or Most Recently Relevant to Health Maintenance Insurance [facility] C3 HSN PARTIAL Care Teams Trimming Machine Set Up Operator Relationship Specialty Start Date End Date Name, MD Chavo [address] [place] [address] PCP - General Internal Medicine 10/25/23 Gretchen Spears PharmD [address] [place] [address] Pharmacist Internal Medicine 11/25/23
--- OUTSIDE RECORDS SUMMARY | 2025-05-30 16:47 | XMS_ITS | Encounter Summary ---
Author Organization [employer] Address [address] [facility] [address] [place] [address] Care Team Providers Care Commercial Announcer Name Role Phone Name, Chavo MCMILLAN Primary Care Provider Gretchen Spears PharmD Unavailable [phone] Encounter Details Date Type Department Care Team (Latest Contact Info) Description 05/27/2025 Travel Social History Tobacco Use Types Packs/Day [...] housing situation today? I have silkealdo lopez 02/26/[address] you [...] Description 06/25/2025 4:00 PM EST Office Visit [facility] [address] [place] [address] Name, MD Chavo [address] [place] [address] documented as of this encounter Goals Goal [...] documented as of this encounter Care Teams Commercial Announcer Relationship Specialty Start Date End Date Name, MD Chavo [address] [place] [address] PCP - General Internal Medicine 10/25/23 Puia, Gretchen, PharmD [address] [place] [address] [phone] Pharmacist Internal Medicine 11/25/23 documented as of this encounter
== END 2025-05-30 13:10 | disposition home or self-care (01) ==
LOC: HO.HHCLNP 13:09
PROVIDERS: Visit Provider Family Medicine
DX: Z20.2 Contact with and (suspected) exposure to infections with a predominantly sexual mode of transmission (principal); N89.8 Other specified noninflammatory disorders of vagina; R30.0 Dysuria
CPT/HCPCS: 81515; 87086; 87491; 87591

== ENCOUNTER 2025-06-16 07:42 | Outpatient (REF) | payer MEDICAID, SELFPAY ==
--- OUTSIDE RECORDS SUMMARY | 2025-06-16 07:46 | XMS_ITS | Encounter Summary ---
Author Organization [employer] Address [address] [place] [address] [address] [place] [address] Care Team Providers Care Steam Distribution Supervisor Name Role Phone Name, Chavo MCMILLAN Primary Care Provider [phone] Gretchen Spears PharmD Unavailable [phone] Encounter Details Date Type Department Care Team (Late st Contact Info) Description 12/08/2024 Orders Only [facility] [address] [place] [address] ProviderHannah MD Social History Tobacco Use Types [...] Description 06/25/2025 4:00 PM EST Office Visit [facility] [address] [place], [place] [phone] Name, MD Chavo [address] [place] [phone] documented as of this encounter Goals Goal [...] documented as of this encounter Care Teams Steam Distribution Supervisor Relationship Specialty Start Date End Date Name, MD Chavo [address] [place] [address] [phone] PCP - General Internal Medicine 10/25/23 Puia, Gretchen, PharmD [address] [place] [address] [phone] Pharmacist Internal Medicine 11/25/23 documented as of this encounter
--- OUTSIDE RECORDS SUMMARY | 2025-06-16 07:46 | XMS_ITS | Clinical Summary ---
Author Organization [employer] Address [address] [place] [address] 7[address] [place] [address] Care Team Providers Care Director Of Compensation Name Role Phone Name, Chavo MCMILLAN Primary Care Provider [phone] Gretchen Spears PharmD Unavailable [phone] Allergies No known active allergies Medications [...] THE MORNING 30 capsule 10/31/19 25 Active metFORMIN, OSM, (Fortamet) 1000 MG 24 hr tablet Take 1 tablet (1,000 mg) by mouth with evening meal. Do not crush, chew, or split. 30 tablet 11 01/25/20 25 026 Active Dulaglutide (Trulicity) 3 MG/0.5ML solution auto-injector Inject 3 mg under the skin 1 (one) time per week. 2 mL 11 5 5:31 PM EST 01/25/20 25 026 Active tiZANidine (Zanaflex) 2 MG tabletIndicati ons:Acute right-sided thoracic back pain Take 1 tablet (2 mg) by mouth every 6 (six) hours if needed for muscle spasms for up to 10 days. 30 tablet 02/27/20 25 Active lidocaine (Lidoderm) 5 % patch APPLY 1 PATCH TOPICALLY TO SKIN, LEAVE ON FOR 12 HOURS AND OFF FOR 12 HOURS DIRECTED 30 patch 2 5:31 PM EST 06/11/20 Active acetaminophen (Tylenol) 325 MG tablet Take 2 tablets (650 mg) by mouth every 6 (six) hours if needed for moderate pain. OTC 40 tablet 05/30/20 Active lidocaine (Lidoderm) 5 % patch Apply 1 patch topically Once per day. Remove & discard patch within 12 hours or as directed by MD. 30 patch 2 11/28/19 Discontinued acetaminophen (Tylenol) 325 MG tablet Take 2 tablets (650 mg) by mouth every 6 (six) hours if needed for moderate pain. OTC 40 tablet 11/28/19 Discontinued(Re order (will not trigger notification to Pharmacy)) fluconazole (Diflucan) 150 MG tabletIndicati ons:Vaginal yosef Take 1 tablet today and another 3 days later 2 tablet 03/01/20 Discontinued(Re order (will not trigger notification to Pharmacy)) fluconazole (Diflucan) 150 MG tablet Take 1 tablet (150 mg) by mouth 1 (one) time for 1 dose. 1 tablet 05/30/20 terconazole (Terazol 7) 0.4 % vaginal cream Insert 1 applicator into the vagina at bedtime for 7 days. 45 g 05/30/20 025 ciprofloxacin (Cipro) 500 MG tablet Take 1 tablet (500 mg) by mouth 2 times daily for 5 days. 10 tablet 05/30/20 025 metroNIDAZOLE (Flagyl) 500 MG tablet Take 1 tablet (500 mg) by mouth 2 times daily for 7 days. 14 tablet 05/31/20 025 Active Problems Problem Noted Date Diagnosed Date [...] to fu with new PCP in 4-6w firer retort visit. Order labs Counseled re more frequent [...] Encounters Date Type Department Care Team Description 05/31/2025 Orders Only [facility] [address] [address] Jacque Carreno DO 05/31/2025 [facility] [address] [address] Jacque Carreno DO Chlamydia/N. 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 Explains mother got a letter in the mail saying she was due for a mamogram but cannot get seen without refferal.) from Last 3 Months Immunizations Immunization Administration [...] Description 06/25/2025 4:00 PM EST Office Visit [facility] [address] [place] [address] Name, MD Chavo [address] [place] [address] Health Maintenance Due Date Last Done Comments CT Colonography 1970 Colonoscopy 1969 Colorectal Cancer Screening 1970 FIT DNA/Cologuard 1969 FIT 1969 FOBT 1969 Sigmoidoscopy 1969 Diabetes: Foot Exam 11/16/1979 Pap Smear 1990 Cervical Cancer Screening 11/16/1999 HPV/Cotest 11/16/1999 RSV Patients and Patients Aged 60 years or older (1 - Risk 50-74 years 1-dose series) 11/16/2019 Hepatitis B Vaccines (2 of 2 - CpG 2-dose series) 02/08/2024 01/11/2024 Hepatitis A Vaccines (2 of 2 - Risk 2-dose series) 07/12/2024 01/11/2024 Zoster Vaccines (2 of 2) 07/13/2024 05/18/2024 COVID-19 Vaccine (1 - season) 2025 Influenza Vaccine (#1) 2025 04/26/2024, 2021 Diabetes: Hemoglobin A1C 07/26/2025 025, 11/03/2024, 05/02/2024, Additional history exists Diabetes: Urine Protein Screening 09/11/2025 09/11/2024, 10/08/2023 Lipid Panel 09/11/2025 09/11/2024, 12/31, 10/08/2023 Alcohol/Substance Use Screening 02/26/2026 02/26/2025 Depression Screening 02/26/2026 02/26/2025, 02/27/20 Disability Screening 02/26/2026 02/26/2025 SDOH Screening 02/26/2026 02/26/2025 Mammogram 03/06/2026 03/06/2024, 0812/2023, 10/02/2021, Additional history exists Tobacco Screening 05/30/2026 05/30/2025 Eye Exam 05/30/2027 05/30/2025, 05/03, 05/30/2025, Additional history exists DTaP/Tdap/Td Vaccines (2 - Td or Tdap) 11/24/2033 11/25/2023 HIV Screening Completed 05/12/2022 Hepatitis C Screening [...] directed Result Component No Puia, Gretchen, PharmD Procedures Procedure Name Priority Date/Time Associated Diagnosis Comments CULTURE, URINE, ROUTINE Routine 05/30/2025 10:51 AM EDT Complicated UTI (urinary tract infection) BACTERIAL VAGINOSIS PANEL Routine 05/30/2025 10:51 AM EDT Vaginal itching CHLAMYDIA/N. GONORRHOEAE RNA, TMA, UROGENITAL Routine 05/30/2025 10:51 AM EDT Vaginal itching POCT URINALYSIS DIPSTICK Routine 05/30/2025 10:49 AM EDT Complicated UTI (urinary tract infection) POCT GLYCATED HEMOGLOBIN, TOTAL Routine 01/24/2025 4:19 PM EDT Type 2 diabetes mellitus without complication, without long-term current use of insulin ([facility]/HCC) ALBUMIN, RANDOM URINE W/CREATININE Routine 09/11/2024 8:31 AM EST Type 2 diabetes mellitus without complication, without long-term current use of insulin ([facility]) LIPID PANEL, STANDARD Routine 09/11/2024 8:31 AM EST Type 2 diabetes mellitus without complication, without long-term current use of insulin ([facility]) BI MAMMOGRAM DIAGNOSTIC TOMOSYNTHESIS BILATERAL Routine 03/06/2024 2:06 PM EDT Painful lumpy right breast HEPATITIS PANEL, GENERAL Routine 10/08/2023 9:30 AM EST Dizziness from Last 3 Months or Most Recently Relevant to Health Maintenance Results * (ABNORMAL) Bacterial Vaginosis (05/30/2025 10:51 AM EDT) TRICHOMONAS VAGINALIS DETECTION BY PCR NOT DETECTED Not Detect [facility] BACTERIAL VAGINOSIS DETECTION BY PCR POSITIVE(A) Negative [facility] Comment:The BV organism targ ets [...] DETECTION BY PCR NOT DETECTED Not Detect [facility] Yosef glab krusei PCR NOT DETECTED Not Detect [facility] Swab Vaginal structure / Unknown 05/30/2025 10:51 AM EDT 05/30/2025 1:09 PM EDT Jacque Carreno DO LAB MICROBIOLOGY - GENERAL O RDERABLES Final Result [facility] [address] [place] [address] [phone] * Chlamydia/N. Gonorrhoeae RNA, TMA, Vaginal (05/30/2025 10:51 AM EDT) CT PCR NOT DETECTED Not Detect. [facility] Comment:A not detected test result [...] psychologicalconsequences. NG PCR NOT DETECTED Not Detect. [facility] Comment:A not detected test result [...] MICROBIOLOGY - GENERAL O RDERABLES Final Result Performing Organization Address [facility] Co de Phone Number [facility] [address] [place] [phone] * Culture, Urine, Routine (05/30/2025 10:51 AM EDT) Urine Urine specimen obtained by clean catch procedure / Unknown 05/30/2025 10:51 AM EDT 05/30/2025 1:09 PM EDT Comment:UACC Narrative [facility] - 06/02/2025 12:09 PM EDT Urine Culture Report Result Urine Culture 10,000 to 50,000 cfu/ml Urine Culture Mixed bacterial laxmi characteristic of Urine Culture urogenital contamination. Specimen Source: Urine clean catch Jacque Carreno DO LAB MICROBIOLOGY - GENERAL O RDERABLES Final Result Performing Organization Address [facility] de Phone Number [facility] [address] [place] [phone] * POCT Urinalysis (05/30/2025 10:49 AM [...] Media Lot # [id number] Lot# Expiration Date ,026 Urine (Urine, Random) 05/30/2025 10:49 AM EDT us Jacque Carreno DO POINT OF CARE TEST ENTER/COLIN T ORDERABLES Final Result * POCT HGB A1C (01/24/2025 4:19 PM EDT) Hemoglobin A1C 6.0 4.0 - 6.0 % QC Media Lot # [id number] Lot# Expiration Date Blood 01/24/2025 4:19 PM EDT us Chavo Fairbanks MD POINT OF CARE TEST ENTER/EDIT OR DERABLES Final Result * Albumin, Random Urine W/Creatinine (09/11/2024 8:31 AM EST) Creatinine, Urine 215.17 mg/dL [facility] Microalbumin Urine 16.0 mg/L [facility] Microalbum Creatinine Ratio Ur 7.4 <30 ug/mg cr [facility] Comment:Albumin/Creatinine R atio Reference Ranges: Normal: < 30 ug/mg creatinine Microalbuminuria: 30 - 300 ug/mg creatinineClinical Albuminuria: > 300 ug/mg creatinine Urine (Urine, Random) 09/11/2024 8:31 AM EST 09/11/2024 11:02 AM EST us Chavo Fairbanks MD LAB URINE ORDERABLES Final Resul t [facility] [address] [place] [address] [phone] * (ABNORMAL) Lipid Panel, Standard (09/11/2024 8:31 AM EST) Triglycerides 180(H) <150 mg/dL [facility] Comment:Desirable Triglyceri de: less than 150 mg/dLBorderline High Triglyceride 150-199 mg/dLHigh Triglyceride: 200-499 mg/dLVery High Triglyceride: greater than or equal to 5OO mg/dL Cholesterol 150 <200 mg/dL [facility] Comment:Desirable Cholestero l: less than 200 mg/dLBorderline High Cholesterol: 200-239 mg/dLHigh Cholesterol: greater than 239 mg/dL LDL Cholesterol Calculated 80 <100 mg/dL [facility] Comment:Desirable LDL: less than 100 mg/dLNear Optimal/Above Optimal LDL: 110- 129 mg/dLBorderline High LDL: 130-159 mg/dLHigh LDL: 160-189 mg/dLVery High LDL: greater than or equal to 190 mg/dL HDL Cholesterol 34(L) >40 mg/dL [facility] Comment:Desirable HDL: great er than 40 mg/dL Note: This HDL assay may give artificially low results in patients with liver disease. Blood Venous blood specimen / Unknown 09/11/2024 8:31 AM EST 09/11/2024 11:06 AM EST Chavo Fairbanks MD LAB BLOOD ORDERABLES Final Resul t [facility] [address] [place] [phone] * BI Mammogram Diagnostic Tomosynthesis Bilateral (03/06/2024 2:06 PM EDT) Anatomical Region Laterality Modality Breast Bilateral Mammography 03/06/2024 2:06 PM EDT Narrative 03/06/2024 2:57 PM EDT [facility] [address] [place] [address] Mammography Report Signed Patient: Darek Akhtar MR#: [id number] : 1970 Acct:[id number] Age/Sex: 53 / F ADM Date: 03/06/24 Loc: HO.MAMMO Attending Dr: Chavo Fairbanks MD Ordering Physician: Chavo Fairbanks MD Results: 1Negative Date of Service: 03/06/24 Follow Up: 1 Year From Orig inal Mammogram Procedure(s): MM tomosynthesis diagnostic BI Accession Number(s): [id number] cc: Chavo Fairbanks MD EXAMINATION: MM DIAGNOSTIC DIGITAL BREAST TOMOSYNTHESIS, BILATERAL US BREAST LIMITED, RIGHT MAMMOGRAPHY: CLINICAL INFORMATION: 53-year-old female complaining of right breast pain/palpable focus approximate 11:00 axis, anterior one third. As per technologist note, history of breast cancer in sister at age 48. COMPARISON: Bilateral Mammography and right breast ultrasound 10/02/2021 from [facility]. TECHNIQUE: Digital breast tomosynthesis is performed in [...] by Drew Jones MD in OV> 03/06/24 5713 DD/ 1406 TD/TT: Specialty Manufacturing Supervisor: Procedure Note Donotuseinterpreter, Image - 03/06/2024 [facility] [address] [place], [place] [address] Mammography Report Signed Patient: Michael Akhtar#: [id number] : 1970Acct:[id number] Age/Sex: 53 / FADM Date: 03/06/24 Loc: HO.MAMMO Attending Dr: Chavo Fairbanks MD Ordering Physician: Chavo Fairbanks MDResults: 1Negative Date of Service: 03/06/24Follow Up: 1 Year From Orig inal Mammogram Procedure(s): MM tomosynthesis diagnostic BI Accession Number(s): [id number] cc: Chavo Fairbanks MD EXAMINATION: MM DIAGNOSTIC DIGITAL BREAST TOMOSYNTHESIS, BILATERAL US BREAST LIMITED, RIGHT MAMMOGRAPHY: CLINICAL INFORMATION: 53-year-old female complaining of right breast pain/palpable focus approximate 11:00 axis, anterior one third. As per technologist note, history of breast cancer in sister at age 48. COMPARISON: Bilateral Mammography and right breast ultrasound 10/02/2021 from [facility]. TECHNIQUE: Digital breast tomosynthesis is performed in [...] in OV> 03/06/24 1453 DD/ 1406 TD/TT: Specialty Manufacturing Supervisor: us Chavo Fairbanks MD IMG BI PROCEDURES Final Result * Hepatitis Panel, General (10/08/2023 9:30 AM EST) Hepatitis A IgM Nonreactive Nonreactive [facility] Comment:IgM antibodies to MASSEY V not detected; does not exclude earlyacute or recovered HAV infection. ~Hepatitis B Surface Antibody NONREACTIVE Nonreactive [facility] Comment:Nonreactive: < 8.00 mIU/mL Hepatitis B Core Antibody Nonreactive Nonreactive [facility] Hepatitis C Antibody Nonreactive Nonreactive [facility] Comment:Antibodies to HCV no t detected; does not exclude early acuteHCV infection. Hepatitis B Surface Ag Negative Negative [facility] Blood 10/08/2023 9:30 AM EST 10/08/2023 11:29 AM EST us Katina Cabrera MD LAB BLOOD ORDERABLES Fin al Result [facility] [address] [place] [address] [place] [phone] from Last 3 Months or Most Recently Relevant to Health Maintenance Insurance [facility] C3 Care Teams Director Of Compensation Relationship Specialty Start Date End Date Name, MD Chavo [address] [place] [address] PCP - General Internal Medicine 10/25/23 Gretchen Spears PharmD [address] [place] [address] Pharmacist Internal Medicine 11/25/23
--- OUTSIDE RECORDS SUMMARY | 2025-06-16 07:46 | XMS_ITS | Encounter Summary ---
Author Organization [employer] Address [address] [place] [address] 7 [place] [address] Care Team Providers Care Clinical Case Manager Name Role Phone NameChavo MD Primary Care Provider [phone] Gretchen Spears PharmD Unavailable [phone] Reason for Visit * Reason Onset Date Comments Med Refill 08/05/2024 Encounter Details Date Type Department Care Team (Late st Contact Info) Description 08/05/2024 Refill [facility] [address] [place], [place] [phone] Name, MD Chavo [address] [place] [address] Social History Tobacco Use Types Packs/Day Years [...] Description 06/25/2025 4:00 PM EST Office Visit [facility] [address] [place] [phone] Name, MD Chavo [address] [place] [phone] documented as of this encounter Goals Goal [...] documented as of this encounter Care Teams Clinical Case Manager Relationship Specialty Start Date End Date Name, MD Chavo [address] [place] [phone] PCP - General Internal Medicine 10/25/23 Gretchen Spears, PharmD [address] [place] [phone] Pharmacist Internal Medicine 11/25/23 documented as of this encounter
--- OUTSIDE RECORDS SUMMARY | 2025-06-16 07:46 | XMS_ITS | Encounter Summary ---
Author Organization [employer] Address [address] [place] [address] 7 [place] [address] Care Team Providers Care [employer] Name Role Phone NameChavo MD Primary Care Provider [phone] Gretchen Spears PharmD Unavailable [phone] Reason for Visit * Reason Onset Date Comments Med Refill 06/19/2024 Encounter Details Date Type Department Care Team (Late st Contact Info) Description 06/19/2024 Refill [facility] [address] [place], [place] [phone] Name, MD Chavo [address] [place] [address] Type 2 diabetes mellitus without complication, unspecified whether real estate management specialist insulin use ([facility]) Social History Tobacco Use Types Packs/Day [...] Description 06/25/2025 4:00 PM EST Office Visit [facility] [address] [place] [phone] Name, MD Chavo [address] [place] [address] documented as of this encounter Goals Goal Patient Goal Type Associated Problems Recent Progress Patient-Stated? Author Hemoglobin A1c < 7 Result Component 6(01/24/2025 4:19 PM EDT) No Puia, Gretchen, PharmD Record your blood sugar as directed Result Component No Puia, Gretchen, PharmD documented as of this encounter Visit Diagnoses Diagnosis Type 2 diabetes mellitus without complication, unspecified whether assisted insulin use documented in this encounter Additional Health Concerns Assessment Noted Time PHQ-9 Depression Total Score: 0 10/25/19 24 1:07 PM EDT documented as of this encounter Care Teams [employer] Relationship Specialty Start Date End Date Name, MD Chavo [address] [place] [phone] PCP - General Internal Medicine 10/25/23 Puia, Gretchen, PharmD [address] [place] [phone] Pharmacist Internal Medicine 11/25/23 documented as of this encounter
--- OUTSIDE RECORDS SUMMARY | 2025-06-16 07:46 | XMS_ITS | Encounter Summary ---
Author Organization [employer] Address [address] [place] [address] 7t [place] [address] Care Team Providers Care Digital Marketing Program Manager Name Role Phone Name, Chavo MCMILLAN Primary Care Provider [phone] Gretchen Spears PharmD Unavailable [phone] Reason for Visit * Reason Onset Date Comments Med Refill 08/05/2024 Encounter Details Date Type Department Care Team (Late st Contact Info) Description 08/05/2024 Refill [facility] [address] [place], [place] [phone] Katina Cabrera MD [address] [place] [address] Social History Tobacco Use Types Packs/Day Years [...] Description 06/25/2025 4:00 PM EST Office Visit [facility] [address] [place] [phone] Name, MD Chavo [address] [place] [phone] documented as of this encounter Goals Goal [...] documented as of this encounter Care Teams Digital Marketing Program Manager Relationship Specialty Start Date End Date Name, MD Chavo [address] [place] [phone] PCP - General Internal Medicine 10/25/23 PuiaKjGretchen, PharmD [address] [place] [address] Pharmacist Internal Medicine 11/25/23 documented as of this encounter
--- OUTSIDE RECORDS SUMMARY | 2025-06-16 07:46 | XMS_ITS | Encounter Summary ---
Author Organization [employer] Address [address] [facility] 7t [place] [address] Care Team Providers Care String Studies Director Name Role Phone Name, Chavo MCMILLAN Primary Care Provider [phone] Gretchen Spears PharmD Unavailable [phone] Reason for Visit * Reason Comments Med Refill Encounter Details Date Type Department Care Team ([facility] Contact Info) Description 05/17/2025 Refill [facility] [address] [place] [phone] Brennan Buitrago MD [address] [place] [address] Social History Tobacco Use Types Packs/Day Years [...] Description 06/25/2025 4:00 PM EST Office Visit [facility] [address] [place] [address] Name, MD Chavo [address] [place] [address] documented as of this encounter Goals Goal [...] documented as of this encounter Care Teams String Studies Director Relationship Specialty Start Date End Date NameChavo MD [address] [place] [phone] PCP - General Internal Medicine 10/25/23 Puia, Gretchen, PharmD [address] [place] [phone] Pharmacist Internal Medicine 11/25/23 documented as of this encounter
== END 2025-06-16 07:43 | disposition home or self-care (01) ==
LOC: HO.MAMMO 07:42
PROVIDERS: PCP Internal Medicine Geriatric Medicine; Visit Provider Internal Medicine Geriatric Medicine
DX: Z12.31 Encounter for screening mammogram for malignant neoplasm of breast (principal)
CPT/HCPCS: 77063; 77067

== ENCOUNTER → 2025-06-16 07:45 | Outpatient (BNV) | payer MEDICAID, SELFPAY | PROVIDERS: PCP Internal Medicine Geriatric Medicine; Visit Provider Internal Medicine | DX: Z12.31 Encounter for screening mammogram for malignant neoplasm of breast (principal) | CPT/HCPCS: 77063; 77067 ==